=== PATIENT | female | born 1945 | race African-American/Black ===

== ENCOUNTER 2019-09-13 13:13 | Inpatient (IN) | payer MEDICARE, BC, SELFPAY ==
[2019-09-13] VITALS (8 sets, daily range): BP systolic 138–183; BP diastolic 59–103; PULSE 88–104; RESP 16–20; TEMP 37.4–39.4; O2SAT 95–99; BMI 32.1
--- NOTE | ~2019-09-13 | XR_ITS ---
XR knee RT min 4V DATE: 09/13/2019 14:34 INDICATION: Fall. Right knee pain. TECHNIQUE: Crosstable lateral, AP and bilateral oblique views COMPARISON: 12/24/2018 right knee FINDINGS: Tricompartment osteoarthritis, involving most severely the medial compartment. No fracture or dislocation, periosteal reaction or bone destruction, radiopaque intra-articular loose body or chondrocalcinosis is detected. IMPRESSION: Tricompartment osteoarthritis No fracture or dislocation Reviewed, dictated and finalized at location A. TING TRADES WORKER
--- NOTE | ~2019-09-13 | XR_ITS ---
EXAMINATION: XR abdomen/kub 1V INDICATION: No bowel movement for four days, nausea TECHNIQUE: Supine view of the abdomen is obtained. COMPARISON: None FINDINGS: A large volume of colonic stool is present. There are no dilated loops of bowel. Gas and st ool are seen in the rectum. There is chronic metallic density in the right pelvis. Moderate bilateral hip posterior arthritis is noted. There is also osteitis pubis. IMPRESSION: 1. Constipation. Reviewed, dictated and finalized at location A. RAL OFFICE INSPECTOR IMPRESSION: 1. Constipation.
--- NOTE | ~2019-09-13 | XR_ITS ---
XR hip RT 2V w AP pelvis DATE: 09/13/2019 14:34 INDICATION: Fall. Right hip pain. TECHNIQUE: AP pelvis. AP, lateral and crosstable lateral views of right hip COMPARISON: None FINDINGS: No pelvic fracture is evident. The pubic symphysis and sacroiliac joints are normally align ed. Hip joint spaces are symmetric and relatively preserved. No fracture, dislocation, avascular necr osis or bone destruction of the right hip. IMPRESSION: No evidence of pelvic or right hip fracture Reviewed, dictated and finalized at location A. ET SEWER
--- NOTE | ~2019-09-13 | XR_ITS ---
XR chest 2V DATE: 09/13/2019 14:33 INDICATION: Chest pain, cough TECHNIQUE: AP and lateral views COMPARISON: 12/07/2016 two-view chest FINDINGS: There is prominent airspace opacification overlying the left mid and to a lesser extent lef t lower lung. Findings may be due to pneumonia. Recommend clinical correlation. Follow-up chest Radio graphs are recommended to assure complete clearing in order to exclude any possible pulmonary mass le robert or hilar adenopathy. There is minimal infiltrate or atelectasis at the right lung base. Heart size appears within normal limits. No pleural effusion or pulmonary vascular congestion or pneu mothorax is detected. IMPRESSION: Prominent airspace opacities overlying the left mid and to a lesser extent both lower jayson g zones. Pneumonia is suggested. However, follow-up chest radiograph recommended to a short complete clearing in order to exclude any pulmonary mass lesion or hilar adenopathy Reviewed, dictated and finalized at location A. T BASIC EDUCATION MANAGER IMPRESSION: Prominent airspace opacities overlying the left mid and to a lesser extent both lower lung zones. Pneumonia is suggested. However, follow-up chest radiograph recommended to a short complete clearing in order to exclude any pulmonary mass lesion or hilar adenopathy
--- NOTE | ~2019-09-13 | XR_ITS ---
EXAMINATION: XR abdomen obstructive series DATE: 09/19/2019 13:47 INDICATION: Constipation. TECHNIQUE: Upright and supine views of the abdomen were obtained. COMPARISON: Abdomen radiograph 09/16/2019, CT abdomen and pelvis 11/21/2012 FINDINGS: There are no dilated loops of bowel. There is a large volume of stool in the colon. There i s a 12 mm radiopaque foreign body in right lower quadrant that was in the cecum on 11/21/2012. No free intraperitoneal gas. There are airspace opacities in the mid and lower lung zones, left worse than ri ght. IMPRESSION: 1. Nonobstructive bowel gas pattern. 2. Airspace opacities in the mid and lower lung zones, left worse than right, consistent with atelect asis versus pneumonia. Reviewed, dictated and finalized at location A. IMPLEMENTATION CONSULTANT IMPRESSION: 1. Nonobstructive bowel gas pattern. 2. Airspace opacities in the mid and lower lung zones, left worse than right, c onsistent with atelectasis versus pneumonia.
--- NOTE | 2019-09-13 13:32 | ED.FALL ---
HPI - Fall General Chief Complaint: Fall Stated Complaint: fall, weakness Time Seen by Provider: 09/13/19 13:32 Source: patient and family (daughter) Mode of arrival: ambulatory Limitations: no limitations History of Present Illness HPI Narrative: A 74 y/o female presents to the ED after a fall. Pt states that she woke up at 9:00 AM this morning and was walking from the bathroom when her feet started slipping and she slid down to the floor. Pt was found sitting up on the floor by family. Per daughter, pt has been coughing up green phlegm for 2 days. Pt has not eaten or taken any of her medication today. Pt lives alone and does not want to move in with family or go to a [facility]. Pt has become increasingly weak recently, but is normally able to walk unassisted. She reports SOB on exertion and a 103 degree F fever today, but denies CP, ABD pain, neck pain, back pain, and a HI. Pt is on ASA 81 mg. Onset (ago): hour(s) Fall witnessed: no Place fall occurred: home Related Data Home Medications Medication Instructions Recorded Confirmed amlodipine 5 mg PO DAILY 09/13/19 09/13/19 aspirin 81 mg PO DAILY 09/13/19 09/13/19 cholecalciferol (vitamin D3) 5,000 unit PO DAILY 09/13/19 09/13/19 [Vitamin D3] diclofenac sodium 75 mg PO BID 09/13/19 09/13/19 losartan 100 mg PO DAILY 09/13/19 09/13/19 metformin 500 mg PO BID 09/13/19 09/13/19 pravastatin 20 mg PO DAILY 09/13/19 09/13/19 Allergies Allergy/AdvReac Type Severity Reaction Status Date / Time Penicillins Allergy Intermediate Swelling Verified 09/13/19 13:31 of Lip/Tongue/Throat acetaminophen [From Vicodin] AdvReac Intermediate Nausea and Verified 09/13/19 13:31 Vomiting hydrocodone [From Vicodin] AdvReac Intermediate Nausea and Verified 09/13/19 13:31 Vomiting Review of Systems Review of Systems: All systems reviewed & are unremarkable except as noted in HPI and below Constitutional: Constitutional: Reports fever(s) (103 degree F) and Reports weakness (generalized) Comments: Reports: a fall Cardiovascular: Cardiovascular: Denies chest pain Respiratory: Respiratory: Reports cough (with green phlegm) and Reports dyspnea (on exertion) Gastrointestinal: Gastrointestinal: Denies abdominal pain Musculoskeletal: Musculoskeletal: Denies back pain Comments: Denies: neck pain Neurologic: Comments: Denies: a GREATER [facility] Past Medical History Medical History (Updated 09/13/19 @ 18:22 by Deborah Hammer PA-C) Anemia Arthritis Hyperlipidemia Hypertension Pleurisy Shingles Type 2 diabetes mellitus Uterine cancer Surgical History Surgical History (Updated 09/13/19 @ 17:51 by Deborah Hammer PA-C) H/O local excision of skin lesion finger History of hand surgery Right trigger finger release and tendon surgery. Status post appendectomy Status post breast biopsy With benign histology. Status post cataract extraction Status post dilation and curettage Status post hysterectomy Family History Family History Sibling Diabetes mellitus Sibling Diabetes mellitus Social History Social History (Updated 09/13/19 @ 18:23 by Deborah Hammer PA-C) Social History: The patient lives in her own home in [place]. She has 7 children, whom she designates as her surrogate decision makers. In addition to her 7 children, she has 21 grandchildren, 25 great grandchildren, and 5 great great grandchildren. She wishes to be a full code. 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 She denies alcohol, tobacco, and drug use. Gender identity (if verbalized by the patient): Female Spiritual care concerns: No Agree to blood products: Yes Comments No PCP on file. Exam Const: General: alert Orientation/consciousness: patient oriented x3 Other: patient with tremors to hands HENMT: Head: normal to inspection, No palpable skull fracture present, normocep
--- NOTE | 2019-09-13 13:45 | ECG_ITS ---
Measurements Intervals [place] Rate: 100 P: 61 ND: 206 QRS: 4 QRSD: 84 T: 39 QT: 364 QTc: 471 Interpretive Statements SINUS TACHYCARDIA WITH FIRST DEGREE AV BLOCK CANNOT RULE OUT SEPTAL INFARCT, AGE INDETERMINATE BASELINE ARTIFACT- I, II, AVR, AVL, AVF, V1-V3, V6 ABNORMAL ECG Electronically Signed On 09-13-2019 19:20:58 BULLET SLUGS INSPECTOR by Gallo Feliz D.O.
[2019-09-13 14:08] LABS: Basophils Absolute Auto 0.1 K/mm3 (0.0-0.1); Basophils Percent Auto 0.5 % (0.2-1.2); Eosinophils Percent Auto 0.1 % (0-4.4); Hematocrit 36.4 % (37.0-47.0); Hemoglobin 11.6 g/dL (12.0-15.0); Immature Granulocyte Absolute 0.07 K/mm3 (0.00-0.031); Immature Granulocyte Percent A 0.5 % (0-0.5); Lymphocytes Absolute Auto 1.18 K/mm3 (0.9-3.2); Lymphocytes Percent Auto 7.9 % (18.3-44.2); Mean Corpuscular HGB Conc 31.9 g/dl (32-36); Mean Corpuscular Hemoglobin 30.4 pg (26-34); Mean Corpuscular Volume 95.3 fl (80-100); Mean Platelet Volume 11.8 fl (7.4-10.4); Monocytes Absolute Auto 1.3 K/mm3 (0.1-0.6); Monocytes Percent Auto 8.9 % (2.6-8.5); Neutrophils Absolute Auto 12.3 K/mm3 (1.3-6.7); Neutrophils Percent Auto 82.1 % (45.5-73.1); Platelet Count Result 242 k/mm3 (150-375); Red Blood Count 3.82 M/mm3 (4.2-5.4); Red Cell Distribution Width 12.4 % (11.5-14.5)
[2019-09-13] MEDS: SODIUM CHLORIDE 0.9% IV 1,000 ML 999 ML IV CONT (14:13)
[2019-09-13 14:20] LABS: INR 1.1; Prothrombin Time 13.6 Seconds (11.1-14.7)
[2019-09-13 14:22] LABS: Lactic Acid Reflex 2.1 mmol/L (0.7-2.1)
[2019-09-13 14:25] LABS: Alanine Aminotransferase 17 U/L (4-35); Alkaline Phosphatase 129 U/L (38-126); Aspartate Amino Transferase 23 U/L (14-36); Bilirubin,Total 0.4 mg/dL (0.2-1.3); Blood Urea Nitrogen 19 mg/dL (7-17); Calcium 9.3 mg/dL (8.4-10.2); Carbon Dioxide 25 mmol/L (22-30); Chloride 99 mmol/L (98-107); Estimated CRCL calculation 41 ml/min; Estimated Glomerular Filt Rate > 60; Glucose 227 mg/dL (65-105); Potassium 3.9 mmol/L (3.4-5.0); Sodium 136 mmol/L (137-145)
[2019-09-13 14:40] LABS: CRP 12.8 mg/dL (<1.0)
[2019-09-13 15:09] LABS: Creatine Kinase 165 U/L (30-135)
[2019-09-13 15:18] LABS: Add Urine Microscopic? YES; Appearance Urine Cloudy (Clear); Bacteria Urine 4+ /hpf; Bilirubin Urine Negative (Negative); Blood Urine 2+ (Negative); Color Urine Yellow (Yellow); Glucose Urine UA 1+ mg/dL (Negative); Ketones Urine Trace mg/dL (Negative); Leukocyte Esterase Ur Negative LEU/UL (Negative); Mucus Urine Rare /lpf; Nitrate Urine Negative (Negative); Protein Urine 3+ mg/dL (Negative); Specific Grav Ur 1.016 (1.001-1.035); Squamous Epithelial Cell Urine Occasional /hpf (Few); Urobilinogen Urine Negative mg/dL (<2.0)
--- NOTE | 2019-09-13 16:22 | ADMGEN ---
This patient, Génesis Chan, was admitted to Medical Room 257-01. Patient/family oriented to hospital policies and general routines including ID bracelet, bed and alarms, visiting hours, pain management, procedures, bathroom and other care routines, personal items, smoking policy, room service/diet, and visiting hours. Valuables list has been completed. Information on how to activate the Rapid Response Team has been discussed. Patient/Family are encouraged to report perceived risks to care and to ask questions if they do not understand what they are told or what they should do.
--- NOTE | 2019-09-13 17:00 | PM.IMHP ---
H&P: HPI History of Present Illness Chief complaint: Fall. Narrative: Génesis Chan is a 74 year old female with diabetes, hypertension, and hyperlipidemia who presented to the emergency department earlier this morning for evaluation after a fall. She woke at 09:00 hours and seemed to be doing okay. She decided not to go to mu-ism, and after leaving the bathroom she went to the dining room table to put her pajamas back on when she slipped out of the chair, onto the floor onto her buttocks. She was unable to get herself up ?because I was weekend sliding around.? Unfortunately she could not get to a phone, and she was on the ground for at least a couple of hours before friends and family members got to her house after she did not answer the phone. With further questioning she mentions having a cough productive of green phlegm as well as a decreased appetite since Saturday. She denies head trauma and loss of consciousness with the fall. She did complain of right knee pain, but goes on to state that she has severe arthritis in that knee in that is not unusual for her. She denies feelings of shortness of breath to me but did mention feeling short of breath with exertion to the emergency department physician. She has not had sinus congestion, rhinorrhea, otalgia, odynophagia, chest pain, pleuritic pain, racing heart, lightheadedness, dizziness, nausea, and vomiting. Of note, the patient did not take her medications this morning. Review of Systems Review of Systems: Narrative: Twelve systems were reviewed with pertinent positives and negatives as per HPI. Temperature was 103? on arrival today. She denies myalgias and arthralgias. No cold or flu symptoms. Occasional constipation. No hematuria. Denies dysphagia and concerns for aspiration. Reports chronic arthritic pain in her right knee. Except as documented, all other systems were reviewed and are negative. [facility] Past Medical History Medical History (Updated 09/13/19 @ 18:22 by Deborah Hammer PA-C) Anemia Arthritis Hyperlipidemia Hypertension Pleurisy Shingles Type 2 diabetes mellitus Uterine cancer Surgical History Surgical History (Updated 09/13/19 @ 17:51 by Deborah Hammer PA-C) H/O local excision of skin lesion finger History of hand surgery Right trigger finger release and tendon surgery. Status post appendectomy Status post breast biopsy With benign histology. Status post cataract extraction Status post dilation and curettage Status post hysterectomy Family History Family History Sibling Diabetes mellitus Sibling Diabetes mellitus Social History Social History (Updated 09/13/19 @ 18:23 by Deborah Hammer PA-C) Social History: The patient lives in her own home in [place]. She has 7 children, whom she designates as her surrogate decision makers. In addition to her 7 children, she has 21 grandchildren, 25 great grandchildren, and 5 great great grandchildren. She wishes to be a full code. 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 She denies alcohol, tobacco, and drug use. Gender identity (if verbalized by the patient): Female Spiritual care concerns: No Agree to blood products: Yes Meds Home Medications and Allergies Home Medications Medication Instructions Recorded Confirmed Type amlodipine 5 mg PO DAILY 09/13/19 09/13/19 History aspirin 81 mg PO DAILY 09/13/19 09/13/19 History cholecalciferol (vitamin D3) 5,000 unit PO DAILY 09/13/19 09/13/19 History [Vitamin D3] diclofenac sodium 75 mg PO BID 09/13/19 09/13/19 History losartan 100 mg PO DAILY 09/13/19 09/13/19 History metformin 500 mg PO BID 09/13/19 09/13/19 History pravastatin 20 mg PO DAILY 09/13/19 09/13/19 History Allergies Allergy/AdvReac Type Severity Reaction Status Date / Time Penicillins Allergy Intermediate Swelling Verified 09/13/19 13:31 of Lip/Tongue/T
[2019-09-13 17:06] LABS: Reflex Lactic Acid Yes or No Add Lactic
[2019-09-13] MEDS: LACTATED RINGERS 1,000 ML 125 ML IV CONT (17:40)
[2019-09-13 18:07] LABS: Glucose Point of Care 216 (65-105)
[2019-09-13 18:18] LABS: Lactic Acid 1.2 mmol/L (0.7-2.1)
[2019-09-13 18:41] LABS: Hemoglobin A1C 6.8 % (<5.7)
[2019-09-13] MEDS: metFORMIN HCL 500 MG TABLET PO (18:49)
[2019-09-13 21:26] LABS: Glucose Point of Care 219 (65-105)
[2019-09-14] VITALS (17 sets, daily range): BP systolic 104–153; BP diastolic 52–87; PULSE 88–93; RESP 14–20; TEMP 37.1–38.9; O2SAT 95–99
[2019-09-14] MEDS: IBUPROFEN 400 MG TABLET PO ×2 (01:03→11:50)
[2019-09-14] MEDS: LACTATED RINGERS 1,000 ML 125 ML IV CONT (01:59)
[2019-09-14 06:26] LABS: Basophils Percent Auto 0.3 % (0.2-1.2); Eosinophils Percent Auto 0.1 % (0-4.4); Hematocrit 30.5 % (37.0-47.0); Hemoglobin 9.9 g/dL (12.0-15.0); Immature Granulocyte Absolute 0.08 K/mm3 (0.00-0.031); Immature Granulocyte Percent A 0.6 % (0-0.5); Lymphocytes Absolute Auto 1.55 K/mm3 (0.9-3.2); Mean Corpuscular HGB Conc 32.5 g/dl (32-36); Mean Corpuscular Hemoglobin 30.5 pg (26-34); Mean Corpuscular Volume 93.8 fl (80-100); Mean Platelet Volume 11.9 fl (7.4-10.4); Monocytes Absolute Auto 1.5 K/mm3 (0.1-0.6); Monocytes Percent Auto 10.7 % (2.6-8.5); Neutrophils Absolute Auto 10.9 K/mm3 (1.3-6.7); Neutrophils Percent Auto 77.3 % (45.5-73.1); Platelet Count Result 219 k/mm3 (150-375); Red Blood Count 3.25 M/mm3 (4.2-5.4); Red Cell Distribution Width 12.4 % (11.5-14.5); White Blood Count 14.1 K/mm3 (4.5-10.0)
[2019-09-14 06:34] LABS: Alanine Aminotransferase 14 U/L (4-35); Albumin Level 3.1 g/dL (3.5-5.1); Alkaline Phosphatase 95 U/L (38-126); Aspartate Amino Transferase 26 U/L (14-36); Bilirubin,Total 0.4 mg/dL (0.2-1.3); Blood Urea Nitrogen 14 mg/dL (7-17); Calcium 8.6 mg/dL (8.4-10.2); Carbon Dioxide 25 mmol/L (22-30); Chloride 104 mmol/L (98-107); Estimated CRCL calculation 53 ml/min; Estimated Glomerular Filt Rate > 60; Glucose 181 mg/dL (65-105); Potassium 3.6 mmol/L (3.4-5.0); Sodium 137 mmol/L (137-145)
[2019-09-14 08:07] LABS: Glucose Point of Care 188 (65-105)
[2019-09-14] MEDS: CHOLECALCIFEROL 1,000 UNIT TABLET 5000 UNITS PO (08:26)
[2019-09-14] MEDS: metFORMIN HCL 500 MG TABLET PO ×2 (08:26→17:56)
[2019-09-14] MEDS: ASPIRIN 81 MG CHEWABLE TABLET PO (08:26)
[2019-09-14] MEDS: LOSARTAN POTASSIUM 100 MG TABLET PO (08:26)
[2019-09-14] MEDS: PRAVASTATIN SODIUM 20 MG TABLET PO (08:26)
[2019-09-14] MEDS: AMLODIPINE BESYLATE 5 MG TABLET PO (08:26)
[2019-09-14] MEDS: ACETAMINOPHEN 325 MG TABLET 650 MG PO (10:23)
[2019-09-14] MEDS: LACTATED RINGERS 1,000 ML 80 ML IV CONT (11:04)
[2019-09-14 11:55] LABS: Glucose Point of Care 211 (65-105)
[2019-09-14] MEDS: INSULIN ASPART (*BKC) 100 UNITS/ML SUB-Q (11:55)
--- NOTE | 2019-09-14 15:41 | PM.IMPN ---
Progress Note: A&P Assessment and Plan (1) Sepsis: Qualifiers: Sepsis acute organ dysfunction status: unspecified Sepsis type: sepsis due to unspecified organism Qualified Code(s): A41.9 - Sepsis, unspecified organism Code(s): A41.9 - Sepsis, unspecified organism Status: Acute Assessment and Plan: -------Present on admission and supported by fever, tachycardia, and leukocytosis in the setting of PNA. Vitals stable. Continue levofloxacin. Blood cultures pending. (2) Pneumonia: Qualifiers: Laterality: left Lung location: unspecified part of lung Pneumonia type: due to unspecified organism Qualified Code(s): J18.9 - Pneumonia, unspecified organism Code(s): J18.9 - Pneumonia, unspecified organism Status: Acute Assessment and Plan: -----continue abx as stated above. Sputum cx pending. (3) Bacteriuria: Code(s): R82.71 - Bacteriuria Status: Acute Assessment and Plan: ------She does note dysuria and history of urinary tract infection. Continue abx and await cx. (4) Generalized weakness: Code(s): R53.1 - Weakness Status: Acute Assessment and Plan: -------Presumably secondary to infection. Continue pT and OT (5) Fall: Code(s): W19.XXXA - Unspecified fall, initial encounter Status: Acute Assessment and Plan: ------Secondary to weakness from illness. (6) Type 2 diabetes mellitus: Code(s): E11.9 - Type 2 diabetes mellitus without complications Status: Acute Assessment and Plan: -----Continue SSI, Accu-Cheks, and hypoglycemic protocol. Will also continue metformin. (7) Hypertension: Code(s): I10 - Essential (primary) hypertension Status: Acute Assessment and Plan: -----Last bp 104/87. Reading have been as high as 183/76 in the emergency department. Continue antihypertensives and monitor (8) Heart murmur: Code(s): R01.1 - Cardiac murmur, unspecified Status: Acute Assessment and Plan: ----- Pt states she is unaware of this. Could be because she is sick. She plans to f/u with pcp after discharge to see if she needs additional w/u Time Spent With Patient Time with patient: 25 - 35 minutes Subjective Date/time seen: 09/14/19 15:41 Interval history: Pt is a 74-year-old female who presented emergency room for fall and productive cough. Patient was seen today and states she is doing okay. She still has a productive cough that is green in color. She has been having fevers all day and feels achy. She has some chest pain with breathing and coughing that is reproducible. She has no shortness of breath at rest and has been walking to the bathroom without shortness of breath. She denies diarrhea or constipation but would like something to help move her bowels. She said she worked with physical therapy and did okay. She states she is eating okay. She does not recall ever being told that she has a murmur. Review of Systems Review of Systems: All systems reviewed & are unremarkable except as noted in HPI and below Exam Narrative: Exam Narrative: General: Well developed well nourished patient resting in bed in NAD HEENT: normocephalic Neck: supple Neuro: Alert and oriented x4 CV:RRR Resp: Decreased breath sounds at the bases with occasional wheeze Abd: Soft, non distended. No pain to palpation. Positive bowel sounds Extremities: No swelling, erythema, or pain to palpation. Objective Data Vital Signs Vital Signs: Vital Signs - 24 hr 09/13/19 16:03 09/13/19 16:09 09/13/19 16:30 Temperature 99.9 F H 101 F H Pulse Rate 98 98 Respiratory Rate 20 16 Blood Pressure 167/80 H 155/64 H Pulse Oximetry 99 98 09/13/19 18:46 09/13/19 20:00 09/13/19 22:59 Temperature 100.6 F H 99.3 F 100.8 F H Pulse Rate 98 88 Respiratory Rate 16 18 Blood Pressure 138/59 L Pulse Oximetry 98 95 09/14/19 00:5
[2019-09-14 17:16] LABS: Glucose Point of Care 162 (65-105)
[2019-09-14 20:41] LABS: Glucose Point of Care 180 (65-105)
[2019-09-15] VITALS (7 sets, daily range): BP systolic 118–145; BP diastolic 56–57; PULSE 72–97; RESP 14–20; TEMP 37.5–38; O2SAT 90–94
[2019-09-15] MEDS: LACTATED RINGERS 1,000 ML 80 ML IV CONT ×2 (01:15→23:27)
[2019-09-15 05:37] LABS: Hematocrit 31.3 % (37.0-47.0); Hemoglobin 10.1 g/dL (12.0-15.0); Mean Corpuscular HGB Conc 32.3 g/dl (32-36); Mean Corpuscular Hemoglobin 30.3 pg (26-34); Mean Platelet Volume 11.7 fl (7.4-10.4); Platelet Count Result 208 k/mm3 (150-375); Red Blood Count 3.33 M/mm3 (4.2-5.4); Red Cell Distribution Width 12.6 % (11.5-14.5); White Blood Count 15.5 K/mm3 (4.5-10.0)
[2019-09-15 05:49] LABS: Blood Urea Nitrogen 11 mg/dL (7-17); Calcium 8.7 mg/dL (8.4-10.2); Carbon Dioxide 27 mmol/L (22-30); Chloride 101 mmol/L (98-107); Estimated CRCL calculation 47 ml/min; Estimated Glomerular Filt Rate > 60; Glucose 216 mg/dL (65-105); Magnesium 1.6 mg/dL (1.6-2.3); Potassium 3.4 mmol/L (3.4-5.0); Sodium 136 mmol/L (137-145)
[2019-09-15 08:24] LABS: Glucose Point of Care 196 (65-105)
[2019-09-15] MEDS: ONDANSETRON HCL ODT 4 MG TABLET PO (09:31)
[2019-09-15] MEDS: AMLODIPINE BESYLATE 5 MG TABLET PO (09:37)
[2019-09-15] MEDS: POTASSIUM CHLORIDE 20 MEQ TABLET PO (09:37)
[2019-09-15] MEDS: metFORMIN HCL 500 MG TABLET PO ×2 (09:37→17:50)
[2019-09-15] MEDS: LOSARTAN POTASSIUM 100 MG TABLET PO (09:38)
[2019-09-15] MEDS: ASPIRIN 81 MG CHEWABLE TABLET PO (09:38)
[2019-09-15] MEDS: polyethylene glycoL 3350 17 GM POWD.PACK PO (09:38)
[2019-09-15] MEDS: CHOLECALCIFEROL 1,000 UNIT TABLET 5000 UNITS PO (09:38)
[2019-09-15] MEDS: PRAVASTATIN SODIUM 20 MG TABLET PO (09:38)
--- NOTE | 2019-09-15 11:42 | PM.IMPN ---
Progress Note: A&P Assessment and Plan (1) Pneumonia: Qualifiers: Laterality: left Lung location: unspecified part of lung Pneumonia type: due to unspecified organism Qualified Code(s): J18.9 - Pneumonia, unspecified organism Code(s): J18.9 - Pneumonia, unspecified organism Status: Acute Assessment and Plan: Continue Levaquin (day 3). Blood cultures, sputum cultures pending with no growth to date. (2) Sepsis: Qualifiers: Sepsis acute organ dysfunction status: unspecified Sepsis type: sepsis due to unspecified organism Qualified Code(s): A41.9 - Sepsis, unspecified organism Code(s): A41.9 - Sepsis, unspecified organism Status: Acute Assessment and Plan: Evident by fever, tachycardia, leukocytosis on arrival. Suspected source is respiratory. See above. Blood cultures pending with no growth to date. Urine culture growing 50,000 - 100,000 E coli -awaiting sensitivities. (3) Bacteriuria: Code(s): R82.71 - Bacteriuria Status: Acute Assessment and Plan: Urine culture growing E coli. She remains on Levaquin -awaiting sensitivity report. (4) Generalized weakness: Code(s): R53.1 - Weakness Status: Acute Assessment and Plan: Continue PT/OT. May be secondary to above. (5) Fall: Qualifiers: Encounter type: initial encounter Qualified Code(s): W19.XXXA - Unspecified fall, initial encounter Code(s): W19.XXXA - Unspecified fall, initial encounter Status: Acute Assessment and Plan: See above. Imaging with no fractures. (6) Type 2 diabetes mellitus: Qualifiers: Diabetes mellitus complication status: without complication Diabetes mellitus correction insulin use: without watermaster use Qualified Code(s): E11.9 - Type 2 diabetes mellitus without complications Code(s): E11.9 - Type 2 diabetes mellitus without complications Status: Acute Assessment and Plan: Continue home metformin. To monitor with Accu-Cheks and cover with sliding scale insulin. (7) Hypertension: Qualifiers: Hypertension type: essential hypertension Qualified Code(s): I10 - Essential (primary) hypertension Code(s): I10 - Essential (primary) hypertension Status: Acute Assessment and Plan: Blood pressures have been variable. Continue her home Norvasc and Cozaar. Monitor BP and adjust treatment if needed. (8) DVT prophylaxis: Code(s): Z29.9 - Encounter for prophylactic measures, unspecified Status: Acute Assessment and Plan: SCDs Subjective Date/time seen: 09/15/19 1015 Interval history: Ms. Chan is a 74yo F admitted with pneumonia. She reports feeling nauseous this morning without emesis. She has tolerated some breakfast this morning. She denies any chest pain and feels her shortness of breath has improved slightly. Review of Systems Review of Systems: Narrative: Twelve systems were reviewed with pertinent positives and negatives as per HPI. Exam Narrative: Exam Narrative: General: Female resting in bedside chair in no acute distress. HEENT: Normocephalic, EOMI, oral mucosa moist. Cardiovascular: Rate and rhythm regular. Respiratory: Diminished breath sounds, slight expiratory wheezing. Respirations even and nonlabored, tolerating room air. Abdomen: Soft, non-tender, non-distended, bowel sounds present. Extremities: Peripheral pulses intact. No edema. Neuro: No focal neurological deficits. Speech is clear. Objective Data Vital Signs Vital Signs: Last Vital Signs Temp 99.5 F 09/15/19 08:06 Pulse 72 09/15/19 08:06 Resp 16 09/15/19 08:06 BP 141/57 H 09/15/19 08:06 Pulse Ox 94 09/15/19 08:06 Inta
[2019-09-15 12:35] LABS: Glucose Point of Care 193 (65-105)
[2019-09-15] MEDS: MAGNESIUM OXIDE 400 MG TABLET PO (12:41)
[2019-09-15] MEDS: MAGNESIUM SULF 4 GM/WATER100ML 4 GM/100 ML BAG IVPB (15:15)
[2019-09-15] MEDS: IBUPROFEN 400 MG TABLET PO (17:50)
[2019-09-15 18:14] LABS: Glucose Point of Care 184 (65-105)
[2019-09-15] MEDS: ACETAMINOPHEN 325 MG TABLET 650 MG PO (21:19)
[2019-09-15 21:37] LABS: Glucose Point of Care 198 (65-105)
[2019-09-16 06:00] VITALS: BP 125/51; PULSE 81; RESP 20; TEMP 36.7; O2SAT 90
[2019-09-16 06:15] LABS: Basophils Percent Auto 0.2 % (0.2-1.2); Eosinophils Absolute Auto 0.1 K/mm3 (0-0.3); Eosinophils Percent Auto 0.6 % (0-4.4); Hematocrit 31.3 % (37.0-47.0); Hemoglobin 9.8 g/dL (12.0-15.0); Immature Granulocyte Absolute 0.07 K/mm3 (0.00-0.031); Immature Granulocyte Percent A 0.6 % (0-0.5); Lymphocytes Absolute Auto 2.28 K/mm3 (0.9-3.2); Lymphocytes Percent Auto 18.4 % (18.3-44.2); Mean Corpuscular HGB Conc 31.3 g/dl (32-36); Mean Corpuscular Hemoglobin 29.9 pg (26-34); Mean Corpuscular Volume 95.4 fl (80-100); Monocytes Absolute Auto 1.2 K/mm3 (0.1-0.6); Monocytes Percent Auto 9.6 % (2.6-8.5); Neutrophils Absolute Auto 8.8 K/mm3 (1.3-6.7); Neutrophils Percent Auto 70.6 % (45.5-73.1); Platelet Count Result 222 k/mm3 (150-375); Red Blood Count 3.28 M/mm3 (4.2-5.4); Red Cell Distribution Width 13.1 % (11.5-14.5); White Blood Count 12.4 K/mm3 (4.5-10.0)
[2019-09-16 06:39] LABS: Blood Urea Nitrogen 20 mg/dL (7-17); Calcium 8.8 mg/dL (8.4-10.2); Carbon Dioxide 27 mmol/L (22-30); Chloride 99 mmol/L (98-107); Estimated CRCL calculation 33 ml/min; Estimated Glomerular Filt Rate 48; Glucose 161 mg/dL (65-105); Magnesium 2.9 mg/dL (1.6-2.3); Phosphorus 3.7 mg/dL (2.5-4.5); Potassium 4.1 mmol/L (3.4-5.0); Sodium 135 mmol/L (137-145)
[2019-09-16] MEDS: ONDANSETRON INJ 4 MG/2 ML VIAL IV PUSH ×2 (08:32→16:13)
[2019-09-16] MEDS: metFORMIN HCL 500 MG TABLET PO ×2 (08:41→17:28)
[2019-09-16] MEDS: ASPIRIN 81 MG CHEWABLE TABLET PO (08:41)
[2019-09-16] MEDS: AMLODIPINE BESYLATE 5 MG TABLET PO (08:41)
[2019-09-16] MEDS: PRAVASTATIN SODIUM 20 MG TABLET PO (08:42)
[2019-09-16] MEDS: LOSARTAN POTASSIUM 100 MG TABLET PO (08:42)
[2019-09-16] MEDS: CHOLECALCIFEROL 1,000 UNIT TABLET 5000 UNITS PO (08:42)
[2019-09-16] MEDS: polyethylene glycoL 3350 17 GM POWD.PACK PO (08:43)
[2019-09-16 08:51] LABS: Glucose Point of Care 131 (65-105)
--- NOTE | 2019-09-16 10:26 | PCOTNOTE ---
Pt became nausous and stated, she wanted to do therapy but was too sick.
--- NOTE | 2019-09-16 11:30 | PM.IMPN ---
Progress Note: A&P Assessment and Plan (1) Pneumonia: Qualifiers: Laterality: left Lung location: unspecified part of lung Pneumonia type: due to unspecified organism Qualified Code(s): J18.9 - Pneumonia, unspecified organism Code(s): J18.9 - Pneumonia, unspecified organism Status: Acute Assessment and Plan: Continue Levaquin (day 4). Blood cultures, sputum cultures pending with no growth to date. Urine antigens pending. Crackles noted today, stop IV fluids and monitor. (2) Sepsis: Qualifiers: Sepsis acute organ dysfunction status: unspecified Sepsis type: sepsis due to unspecified organism Qualified Code(s): A41.9 - Sepsis, unspecified organism Code(s): A41.9 - Sepsis, unspecified organism Status: Acute Assessment and Plan: Evident by fever, tachycardia, leukocytosis on arrival. Suspected source is respiratory. See above. Blood cultures pending with no growth to date. Urine culture growing 50,000 - 100,000 E coli. (3) Bacteriuria: Code(s): R82.71 - Bacteriuria Status: Acute Assessment and Plan: Urine culture growing 50,000 - 100,000 E coli. UA with negative nitrate, negative leukocyte esterase. Patient denies urinary symptoms. Not felt to be contributing to her symptoms. (4) Generalized weakness: Code(s): R53.1 - Weakness Status: Acute Assessment and Plan: Continue PT/OT. May be secondary to above. Home health arranged. (5) Fall: Qualifiers: Encounter type: initial encounter Qualified Code(s): W19.XXXA - Unspecified fall, initial encounter Code(s): W19.XXXA - Unspecified fall, initial encounter Status: Acute Assessment and Plan: See above. Imaging with no fractures. (6) Type 2 diabetes mellitus: Qualifiers: Diabetes mellitus complication status: without complication Diabetes mellitus custodial insulin use: without exterminator helper use Qualified Code(s): E11.9 - Type 2 diabetes mellitus without complications Code(s): E11.9 - Type 2 diabetes mellitus without complications Status: Acute Assessment and Plan: Continue home metformin. To monitor with Accu-Cheks and cover with sliding scale insulin. (7) Hypertension: Qualifiers: Hypertension type: essential hypertension Qualified Code(s): I10 - Essential (primary) hypertension Code(s): I10 - Essential (primary) hypertension Status: Acute Assessment and Plan: Blood pressures have been variable. Continue her home Norvasc and Cozaar. Monitor BP and adjust treatment if needed. (8) DVT prophylaxis: Code(s): Z29.9 - Encounter for prophylactic measures, unspecified Status: Acute Assessment and Plan: SCDs Subjective Date/time seen: 09/16/19 0930 Interval history: Ms. Chan is a 74yo F admitted with pneumonia. She has nausea with some dry heaving with small amounts of emesis this morning. She denies chest pain or shortness of breath. She reports her last BM was about 4 days ago. Review of Systems Review of Systems: Narrative: Twelve systems were reviewed with pertinent positives and negatives as per HPI. Exam Narrative: Exam Narrative: General: Female resting in bedside chair in no acute distress, eating breakfast. HEENT: Normocephalic, EOMI, oral mucosa moist. Cardiovascular: Rate and rhythm regular. Respiratory: Bibasilar crackles. Respirations even and nonlabored, tolerating room air. Abdomen: Soft, non-tender, non-distended, bowel sounds are present. Extremities: Peripheral pulses intact. No edema or pain to palpation. Neuro: No focal neurological deficits. Speech is clear. Objective Data Vital Signs Vital Signs: Last Vital Signs
[2019-09-16 12:45] LABS: Glucose Point of Care 137 (65-105)
[2019-09-16 14:00] VITALS: BP 109/77; PULSE 84; RESP 18; TEMP 36.4; O2SAT 96
--- NOTE | 2019-09-16 14:45 | PCOTNOTE ---
OT treatment attempted this PM. Pt stated that she just got back in bed from using bathroom and felt too nauseous to do any therapy. Patient encouraged to participate and educated on benefits of OT, however, politely continued to refuse. Will attempt OT treatment tomorrow in AM.
--- NOTE | 2019-09-16 15:24 | PCPTNOTE ---
The PT treatment was unable to be completed today due to patient refusal. Will continue per Plan of Care frequency and duration.
--- NOTE | 2019-09-16 16:50 | PC.NURSE ---
1650 - Went to patient room to discuss fleets enema. Patient in agreement with enema but wants to go to the bathroom to attempt to go on her own and have her depends changed (incontinent of urine). 1715 - Patient back in bed - unable to have a BM in the bathroom. Went to room with fleets enema and patient states she wants to wait until after she eats her dinner to receive the enema. 1800 - Patient still eating dinner and talking on the phone. 1830 - Patient now has company and requests enema be administered after they leave.
[2019-09-16 17:51] LABS: Glucose Point of Care 141 (65-105)
[2019-09-16 20:00] VITALS: PULSE 84; RESP 18; O2SAT 96
[2019-09-16 20:55] LABS: Glucose Point of Care 155 (65-105)
[2019-09-16 21:49] VITALS: BP 143/59; PULSE 86; RESP 20; TEMP 36.9; O2SAT 91
[2019-09-16 21:57] LABS: Pneumococcal Antigen Urine Not Detected (Not Detected)
[2019-09-17] VITALS (8 sets, daily range): BP systolic 140–143; BP diastolic 58–60; PULSE 79–98; RESP 18–20; TEMP 36.1–36.7; O2SAT 90–96
[2019-09-17] MEDS: ONDANSETRON INJ 4 MG/2 ML VIAL IV PUSH ×2 (01:49→07:56)
[2019-09-17 06:01] LABS: Basophils Percent Auto 0.3 % (0.2-1.2); Eosinophils Absolute Auto 0.2 K/mm3 (0-0.3); Eosinophils Percent Auto 1.5 % (0-4.4); Hematocrit 29.8 % (37.0-47.0); Hemoglobin 9.4 g/dL (12.0-15.0); Immature Granulocyte Absolute 0.13 K/mm3 (0.00-0.031); Immature Granulocyte Percent A 1.2 % (0-0.5); Lymphocytes Absolute Auto 2.35 K/mm3 (0.9-3.2); Lymphocytes Percent Auto 20.8 % (18.3-44.2); Mean Corpuscular HGB Conc 31.5 g/dl (32-36); Mean Corpuscular Hemoglobin 29.6 pg (26-34); Mean Corpuscular Volume 93.7 fl (80-100); Mean Platelet Volume 11.9 fl (7.4-10.4); Monocytes Absolute Auto 0.9 K/mm3 (0.1-0.6); Monocytes Percent Auto 8.1 % (2.6-8.5); Neutrophils Absolute Auto 7.7 K/mm3 (1.3-6.7); Neutrophils Percent Auto 68.1 % (45.5-73.1); Platelet Count Result 266 k/mm3 (150-375); Red Blood Count 3.18 M/mm3 (4.2-5.4); Red Cell Distribution Width 12.8 % (11.5-14.5); White Blood Count 11.3 K/mm3 (4.5-10.0)
[2019-09-17 06:06] LABS: Blood Urea Nitrogen 21 mg/dL (7-17); Calcium 8.8 mg/dL (8.4-10.2); Carbon Dioxide 28 mmol/L (22-30); Chloride 101 mmol/L (98-107); Estimated CRCL calculation 39 ml/min; Estimated Glomerular Filt Rate 59; Glucose 181 mg/dL (65-105); Potassium 4.1 mmol/L (3.4-5.0); Sodium 137 mmol/L (137-145)
[2019-09-17 08:06] LABS: Glucose Point of Care 155 (65-105)
[2019-09-17] MEDS: metFORMIN HCL 500 MG TABLET PO ×2 (08:10→17:01)
[2019-09-17] MEDS: CHOLECALCIFEROL 1,000 UNIT TABLET 5000 UNITS PO (08:11)
[2019-09-17] MEDS: PRAVASTATIN SODIUM 20 MG TABLET PO (08:11)
[2019-09-17] MEDS: AMLODIPINE BESYLATE 5 MG TABLET PO (08:11)
[2019-09-17] MEDS: LOSARTAN POTASSIUM 100 MG TABLET PO (08:11)
[2019-09-17] MEDS: ASPIRIN 81 MG CHEWABLE TABLET PO (08:11)
[2019-09-17] MEDS: polyethylene glycoL 3350 17 GM POWD.PACK PO (08:11)
--- NOTE | 2019-09-17 08:30 | PC.NURSE ---
Patient very anxious and tearful this morning. States she felt very scared overnight because she has been nauseated at times and has been worried about being ill. Patient states she has always been very active and healthy and she has been anxious about being ill recently. Patient states she was given temporary dentures last December and is due to get her permanent teeth soon. She states she finds herself sucking hard with the roof of her mouth when she is anxious - to the point of making her mouth sore at times. Patient states she took something for anxiety many years ago for a short time right before she retired but has not had to take anything since that time. Patient states she would be willing to try something again if needed. After talking for awhile, patient settled down and stated she felt better. Daughter is on her way to sit with the patient for awhile. Will discuss further with Linda COLLINS on rounds this morning.
[2019-09-17] MEDS: BISACODYL 10 MG SUPPOSITORY RECTAL (10:30)
[2019-09-17 12:30] LABS: Glucose Point of Care 161 (65-105)
--- NOTE | 2019-09-17 12:52 | PCOTNOTE ---
The patient treatment was not able to be completed on 09/17/18. Will plan to continue treatment per plan of care.
--- NOTE | 2019-09-17 13:26 | PM.IMPN ---
Progress Note: A&P Assessment and Plan (1) Pneumonia: Qualifiers: Laterality: left Lung location: unspecified part of lung Pneumonia type: due to unspecified organism Qualified Code(s): J18.9 - Pneumonia, unspecified organism Code(s): J18.9 - Pneumonia, unspecified organism Status: Acute Assessment and Plan: Continue Levaquin (day 5). Blood cultures pending with no growth to date. Sputum cultures without any isolates. Urine antigens - pneumococcal is negative and legionella is still pending. Add duo nebs. (2) Constipation: Qualifiers: Constipation type: unspecified constipation type Qualified Code(s): K59.00 - Constipation, unspecified Code(s): K59.00 - Constipation, unspecified Status: Acute Assessment and Plan: KUB yesterday shows large volume colonic stool, no evidence of obstruction. Not much relief from enema last night or suppository this morning. Milk of mag this afternoon, add senna for this evening. Miralax has not been working. No abdominal pain or vomiting today. (3) Sepsis: Qualifiers: Sepsis acute organ dysfunction status: unspecified Sepsis type: sepsis due to unspecified organism Qualified Code(s): A41.9 - Sepsis, unspecified organism Code(s): A41.9 - Sepsis, unspecified organism Status: Acute Assessment and Plan: Evident by fever, tachycardia, leukocytosis on arrival. Suspected source is respiratory. See above. Blood cultures pending with no growth to date. Urine culture growing 50,000 - 100,000 E coli. (4) Bacteriuria: Code(s): R82.71 - Bacteriuria Status: Acute Assessment and Plan: Urine culture growing 50,000 - 100,000 E coli. UA with negative nitrate, negative leukocyte esterase. Patient denies urinary symptoms. Not felt to be contributing to her symptoms. (5) Generalized weakness: Code(s): R53.1 - Weakness Status: Acute Assessment and Plan: Continue PT/OT. May be secondary to above. Home health arranged. (6) Fall: Qualifiers: Encounter type: initial encounter Qualified Code(s): W19.XXXA - Unspecified fall, initial encounter Code(s): W19.XXXA - Unspecified fall, initial encounter Status: Acute Assessment and Plan: See above. Imaging with no fractures. (7) Type 2 diabetes mellitus: Qualifiers: Diabetes mellitus complication status: without complication Diabetes mellitus snf insulin use: without termite inspector use Qualified Code(s): E11.9 - Type 2 diabetes mellitus without complications Code(s): E11.9 - Type 2 diabetes mellitus without complications Status: Acute Assessment and Plan: Continue home metformin. To monitor with Accu-Cheks and cover with sliding scale insulin. (8) Hypertension: Qualifiers: Hypertension type: essential hypertension Qualified Code(s): I10 - Essential (primary) hypertension Code(s): I10 - Essential (primary) hypertension Status: Acute Assessment and Plan: Stable. Continue her home Norvasc and Cozaar. Monitor BP and adjust treatment if needed. (9) DVT prophylaxis: Code(s): Z29.9 - Encounter for prophylactic measures, unspecified Status: Acute Assessment and Plan: SCDs Subjective Date/time seen: 09/17/19 1300 Interval history: Ms. Chan is a 74yo F admitted with pneumonia. Sitting up in bedside chair eating lunch, visiting with her children at time of my exam. She is anxious and tearful on exam. She denies chest pain or shortness of breath, just reports feeling bad and weak. She has intermittent nausea but denies any this afternoon. She is constipated, very small BM following
[2019-09-17] MEDS: ALBUTEROL SULFATE NEB 2.5 MG/0.5 ML INH INHALATION ×2 (14:01→22:18)
[2019-09-17] MEDS: IPRATROPIUM BR 0.02% INH SOLN 0.5 MG/2.5 ML VIAL INHALATION ×2 (14:02→22:19)
[2019-09-17] MEDS: PANTOPRAZOLE 40 MG TABLET PO (15:00)
[2019-09-17] MEDS: MAGNESIUM HYDROXIDE SUSP 30 ML UDC PO (15:00)
[2019-09-17 18:03] LABS: Glucose Point of Care 177 (65-105)
[2019-09-17] MEDS: SENNA/DOCUSATE SODIUM TABLET 1 TAB PO (20:41)
[2019-09-17 20:48] LABS: Glucose Point of Care 253 (65-105)
[2019-09-18] VITALS (11 sets, daily range): BP systolic 122–145; BP diastolic 50–69; PULSE 77–93; RESP 16–20; TEMP 36.4–37.4; O2SAT 91–100
[2019-09-18 00:42] LABS: Legionella pneumophila Ag Ur Not Detected (Not Detected)
[2019-09-18] MEDS: ALBUTEROL SULFATE NEB 2.5 MG/0.5 ML INH INHALATION ×4 (02:50→21:00)
[2019-09-18] MEDS: IPRATROPIUM BR 0.02% INH SOLN 0.5 MG/2.5 ML VIAL INHALATION ×4 (02:50→21:00)
[2019-09-18 05:34] LABS: Hematocrit 30.1 % (37.0-47.0); Hemoglobin 9.5 g/dL (12.0-15.0); Mean Corpuscular HGB Conc 31.6 g/dl (32-36); Mean Corpuscular Hemoglobin 29.9 pg (26-34); Mean Corpuscular Volume 94.7 fl (80-100); Mean Platelet Volume 11.5 fl (7.4-10.4); Platelet Count Result 288 k/mm3 (150-375); Red Blood Count 3.18 M/mm3 (4.2-5.4); Red Cell Distribution Width 12.9 % (11.5-14.5); White Blood Count 10.6 K/mm3 (4.5-10.0)
[2019-09-18 05:45] LABS: Blood Urea Nitrogen 17 mg/dL (7-17); Carbon Dioxide 30 mmol/L (22-30); Chloride 99 mmol/L (98-107); Estimated CRCL calculation 47 ml/min; Estimated Glomerular Filt Rate > 60; Glucose 176 mg/dL (65-105); Magnesium 2.3 mg/dL (1.6-2.3); Potassium 3.9 mmol/L (3.4-5.0); Sodium 137 mmol/L (137-145)
[2019-09-18] MEDS: CHOLECALCIFEROL 1,000 UNIT TABLET 5000 UNITS PO (08:01)
[2019-09-18] MEDS: ASPIRIN 81 MG CHEWABLE TABLET PO (08:01)
[2019-09-18] MEDS: AMLODIPINE BESYLATE 5 MG TABLET PO (08:01)
[2019-09-18] MEDS: PANTOPRAZOLE 40 MG TABLET PO (08:01)
[2019-09-18] MEDS: LOSARTAN POTASSIUM 100 MG TABLET PO (08:01)
[2019-09-18] MEDS: metFORMIN HCL 500 MG TABLET PO ×2 (08:01→17:19)
[2019-09-18] MEDS: PRAVASTATIN SODIUM 20 MG TABLET PO (08:01)
[2019-09-18 08:13] LABS: Glucose Point of Care 162 (65-105)
[2019-09-18] MEDS: BISACODYL 10 MG SUPPOSITORY RECTAL (08:13)
--- NOTE | 2019-09-18 09:33 | PM.IMPN ---
Progress Note: A&P Assessment and Plan (1) Pneumonia: Qualifiers: Laterality: left Lung location: unspecified part of lung Pneumonia type: due to unspecified organism Qualified Code(s): J18.9 - Pneumonia, unspecified organism Code(s): J18.9 - Pneumonia, unspecified organism Status: Acute Assessment and Plan: Continue Levaquin (day 6) and stop after this evening's dose. Blood cultures pending with no growth to date. Sputum cultures without any isolates. Legionella and pneumococcal urine antigens are negative. Continue bronchodilator therapy with duo nebs. Added Pulmozyme. One time dose of IV Lasix. (2) Constipation: Qualifiers: Constipation type: unspecified constipation type Qualified Code(s): K59.00 - Constipation, unspecified Code(s): K59.00 - Constipation, unspecified Status: Acute Assessment and Plan: KUB showed large volume colonic stool, no evidence of obstruction. Continue bowel regimen, still with no BM today after suppository this morning and have added a lactulose enema for this afternoon. No abdominal pain or vomiting today. Bowel sounds are present. (3) Sepsis: Qualifiers: Sepsis acute organ dysfunction status: unspecified Sepsis type: sepsis due to unspecified organism Qualified Code(s): A41.9 - Sepsis, unspecified organism Code(s): A41.9 - Sepsis, unspecified organism Status: Acute Assessment and Plan: Evident by fever, tachycardia, leukocytosis on arrival. Suspected source is respiratory. See above. Blood cultures pending with no growth to date. Urine culture growing 50,000 - 100,000 E coli. (4) Bacteriuria: Code(s): R82.71 - Bacteriuria Status: Acute Assessment and Plan: Urine culture growing 50,000 - 100,000 E coli. UA with negative nitrate, negative leukocyte esterase. Patient denies urinary symptoms. Not felt to be contributing to her symptoms. (5) Generalized weakness: Code(s): R53.1 - Weakness Status: Acute Assessment and Plan: Continue PT/OT. May be secondary to above. Home health arranged. (6) Fall: Qualifiers: Encounter type: initial encounter Qualified Code(s): W19.XXXA - Unspecified fall, initial encounter Code(s): W19.XXXA - Unspecified fall, initial encounter Status: Acute Assessment and Plan: See above. Imaging with no fractures. (7) Type 2 diabetes mellitus: Qualifiers: Diabetes mellitus half-way insulin use: without half-way use Diabetes mellitus complication status: without complication Qualified Code(s): E11.9 - Type 2 diabetes mellitus without complications Code(s): E11.9 - Type 2 diabetes mellitus without complications Status: Acute Assessment and Plan: Continue home metformin. To monitor with Accu-Cheks and cover with sliding scale insulin. (8) Hypertension: Qualifiers: Hypertension type: essential hypertension Qualified Code(s): I10 - Essential (primary) hypertension Code(s): I10 - Essential (primary) hypertension Status: Acute Assessment and Plan: Stable. Continue her home Norvasc and Cozaar. Monitor BP and adjust treatment if needed. (9) DVT prophylaxis: Code(s): Z29.9 - Encounter for prophylactic measures, unspecified Status: Acute Assessment and Plan: SCDs Subjective Date/time seen: 09/18/19 09:00 Interval history: Ms. Chan is a 74yo F admitted with pneumonia and constipation. She tells me she feels a little better today than yesterday. She appears to be in better spirits. She denies any chest pain or shortness of breath. No nausea, vomiting, or abdominal pain. She i
[2019-09-18] MEDS: FUROSEMIDE INJ 40 MG/4 ML VIAL 20 MG IV PUSH (09:48)
[2019-09-18 12:05] LABS: Glucose Point of Care 134 (65-105)
[2019-09-18] MEDS: LACTULOSE ENEMA 200 GM/1,000 ML ENEMA RECTAL (16:55)
[2019-09-18 18:59] LABS: Glucose Point of Care 161 (65-105)
[2019-09-18] MEDS: SENNA/DOCUSATE SODIUM TABLET 1 TAB PO (20:56)
[2019-09-18] MEDS: DORNASE ALFA INH SOLN 1 MG/ML 2.5 ML AMP 2.5 MG INHALATION (21:01)
[2019-09-18 21:26] LABS: Glucose Point of Care 145 (65-105)
[2019-09-19] VITALS (10 sets, daily range): BP systolic 131–142; BP diastolic 59–63; PULSE 80–93; RESP 16–20; TEMP 37.1–37.7; O2SAT 95–100
[2019-09-19] MEDS: ALBUTEROL SULFATE NEB 2.5 MG/0.5 ML INH INHALATION ×3 (02:36→15:25)
[2019-09-19] MEDS: IPRATROPIUM BR 0.02% INH SOLN 0.5 MG/2.5 ML VIAL INHALATION ×3 (02:37→15:25)
[2019-09-19] MEDS: IBUPROFEN 400 MG TABLET PO (05:44)
[2019-09-19 06:00] LABS: Glucose Point of Care 167 (65-105)
[2019-09-19] MEDS: PRAVASTATIN SODIUM 20 MG TABLET PO (08:05)
[2019-09-19] MEDS: LOSARTAN POTASSIUM 100 MG TABLET PO (08:05)
[2019-09-19] MEDS: AMLODIPINE BESYLATE 5 MG TABLET PO (08:05)
[2019-09-19] MEDS: CHOLECALCIFEROL 1,000 UNIT TABLET 5000 UNITS PO (08:05)
[2019-09-19] MEDS: PANTOPRAZOLE 40 MG TABLET PO (08:05)
[2019-09-19] MEDS: ASPIRIN 81 MG CHEWABLE TABLET PO (08:06)
[2019-09-19] MEDS: metFORMIN HCL 500 MG TABLET PO (08:06)
[2019-09-19 08:46] LABS: Glucose Point of Care 160 (65-105)
[2019-09-19] MEDS: DORNASE ALFA INH SOLN 1 MG/ML 2.5 ML AMP 2.5 MG INHALATION (09:48)
[2019-09-19] MEDS: BISACODYL 10 MG SUPPOSITORY RECTAL (12:00)
[2019-09-19 14:50] LABS: Glucose Point of Care 133 (65-105)
--- NOTE | 2019-09-20 06:57 | PM.DS ---
DS: Diagnosis Admitting Diagnosis Admitting Diagnosis: Sepsis, unspecified organism Discharge Diagnosis (1) Pneumonia: Qualifiers: Laterality: left Lung location: unspecified part of lung Pneumonia type: due to unspecified organism Qualified Code(s): J18.9 - Pneumonia, unspecified organism Code(s): J18.9 - Pneumonia, unspecified organism Status: Acute Assessment and Plan: Date of Service 09/19/19 Ms. Chan is a 74yo F with history of [id number] type 2 diabetes mellitus, hyperlipidemia, and hypertension who presented to the ED for evaluation a fall. She reported she was in her normal state of health until a few days prior to arrival she began to feel generally weak. Right hip and knee pain. Imaging shows right knee osteoarthritis with no fracture dislocation, right hip with no evidence of pelvic or right hip fracture. She did complain of shortness of breath and cough; chest x-ray showed prominent airspace opacities over the left mid and both lower lung zones suggestive of pneumonia. She was started on Levaquin due to her penicillin allergy. She received 6 days of IV Levaquin it was treated with bronchodilator therapy with DuoNebs and Pulmozyme. She was noted to be constipated and KUB shows large volume colonic stool with no evidence of obstruction. Bowel regimen was started and she was treated with MiraLax, Dulcolax, and enemas. She had a large bowel movement prior to discharge and was educated on a daily bowel regimen. Her respiratory symptoms improved with therapy outlined above, although she did briefly require supplemental oxygen overnight one evening. She was tolerating room air discharge. Blood sugars were stable maintained on her home metformin. She worked with PT/OT and home health was arranged for discharge. She was hemodynamically stable for discharge 09/19/19 with instructions to follow-up with PCP this week. Completed a course of IV Levaquin. Blood cultures negative. Sputum cultures without any isolates. Legionella and pneumococcal urine antigens are negative. Treated with bronchodilator therapy with duo nebs, Pulmozyme. One time dose of IV Lasix. (2) Constipation: Qualifiers: Constipation type: unspecified constipation type Qualified Code(s): K59.00 - Constipation, unspecified Code(s): K59.00 - Constipation, unspecified Status: Acute Assessment and Plan: Obstructive series of obstruction and she had large bowel movement just prior to discharge. Continue bowel regimen at home. (3) Sepsis: Qualifiers: Sepsis acute organ dysfunction status: unspecified Sepsis type: sepsis due to unspecified organism Qualified Code(s): A41.9 - Sepsis, unspecified organism Code(s): A41.9 - Sepsis, unspecified organism Status: Acute Assessment and Plan: Evident by fever, tachycardia, leukocytosis on arrival. Suspected source is respiratory. See above. Blood cultures pending with no growth to date. Urine culture growing 50,000 - 100,000 E coli. (4) Bacteriuria: Code(s): R82.71 - Bacteriuria Status: Acute Assessment and Plan: Urine culture growing 50,000 - 100,000 E coli. UA with negative nitrate, negative leukocyte esterase. Patient denies urinary symptoms. Not felt to be contributing to her symptoms. (5) Generalized weakness: Code(s): R53.1 - Weakness Status: Acute Assessment and Plan: Continue PT/OT. May be secondary to above. Home health arranged. (6) Fall: Qualifiers: Encounter type: initial encounter Qualified Code(s): W19.XXXA - Unspecified fall, initial encounter Code(s): W19.XXXA - Unspecified fall, initial encounter Status: Acute Assessment and Plan: See above. Imaging with no fractures.
== END 2019-09-19 16:28 | disposition home health service (06) | DRG 195 ==
LOC: ANHED 14:47 → ANH2MED 15:40
PROVIDERS: Physician Assistant; Admitting Provider Family Medicine; Emergency Provider General Practice; PCP Family Medicine; Visit Provider Family Medicine
DX: J18.9 Pneumonia, unspecified organism (principal); E11.9 Type 2 diabetes mellitus without complications; I10 Essential (primary) hypertension; E78.5 Hyperlipidemia, unspecified; M19.90 Unspecified osteoarthritis, unspecified site; Z85.42 Personal history of malignant neoplasm of other parts of uterus; Z98.49 Cataract extraction status, unspecified eye; Z90.710 Acquired absence of both cervix and uterus; R82.71 Bacteriuria; Z79.84 Long term (current) use of oral hypoglycemic drugs; K59.00 Constipation, unspecified
CPT/HCPCS: 36415; 51701; 71046; 73502; 73521; 73564; 74018; 74019; 80048; 80053; 81001; 82550; 83036; 83605; 83735; 84100; 85025; 85027; 85610; 85730; 86140; 87040; 87070; 87077; 87086; 87088; 87186; 87205; 87449; 87804; 87899; 93005; 94640; 96365; 96375; 97110; 97116; 97161; 97165; 97530; 97535; 99285; A9270; J0131; J1815; J1940; J1956; J2405; J3475; J7030; J7120

== ENCOUNTER 2019-10-01 13:06 | Outpatient (CLI) | payer MEDICARE, BC, SELFPAY ==
--- NOTE | ~2019-10-01 | XR_ITS ---
EXAMINATION: XR chest 2V EXAM DATE: 10/01/2019 13:23 INDICATION: Pneumonia follow-up. Cough, chest pain. TECHNIQUE: Frontal and lateral projections of the chest obtained and reviewed. There is no prior ivan dy for comparison. FINDINGS: The lungs are clear. There are no pleural effusions. The cardiomediastinal silhouette is within normal limits. There is no pneumothorax suspected. The bones and soft tissues are unremarkab le. IMPRESSION: Resolution of previously seen left-sided pneumonia. Reviewed, dictated and finalized at location B. ON FURNACE OPERATOR
== END 2019-10-01 13:07 | disposition home or self-care (01) ==
LOC: ANHIMG 13:07
PROVIDERS: PCP Family Medicine; Visit Provider Family Medicine
DX: J18.9 Pneumonia, unspecified organism (principal)
CPT/HCPCS: 71046

== ENCOUNTER → 2020-03-30 14:00 | Outpatient (CLI) | payer MEDICARE, BC, SELFPAY ==
--- NOTE | ~2020-03-30 | XR_ITS ---
XR lumbar spine 2-3V DATE: 03/30/2020 14:22 INDICATION: Low back pain TECHNIQUE: Standing AP, lateral and coned lateral lumbosacral views COMPARISON: 08/12/2015 lumbar spine FINDINGS: Diffuse osteopenia. There is moderate degenerative disc disease and minimal retrolisthesis at L1-2. There is mild degenerative disc disease and minimal retrolisthesis at L2-3. There is moderate loss of interspace height and grade 1 anterolisthesis at L4-5 and L5-S1. The included lower thoracic and lumbar pedicles are intact. The sacroiliac joints appear normal. IMPRESSION: Diffuse osteopenia Degenerative changes of the lumbar spine Reviewed, dictated and finalized at location A.
== END ==
PROVIDERS: PCP Family Medicine; Visit Provider Family Medicine
DX: M85.88 Other specified disorders of bone density and structure, other site (principal); M51.36 Other intervertebral disc degeneration, lumbar region
CPT/HCPCS: 72100

== ENCOUNTER → 2021-02-16 09:52 | Outpatient (CLI) | payer MEDICARE, BC, SELFPAY ==
--- NOTE | ~2021-02-16 | MR_ITS ---
EXAMINATION: MR lumbar spine wo con DATE: 02/16/2021 10:58 INDICATION: Low back pain. Intervertebral disc disorders with radiculopathy. TECHNIQUE: Magnetic resonance imaging (MRI) of the lumbar spine was performed without intravenous con trast. Sequences included sagittal T2-weighted FSE, sagittal T2-weighted FS FSE, sagittal T1-weighted FSE, and axial T2-weighted FSE. COMPARISON: Lumbar spine radiograph 03/30/2020 FINDINGS: There is 3 mm anterolisthesis of L4 on L5 and L5 on S1. There is mild chronic anterior wedg ing of T12 and L1 vertebral bodies, likely physiologic. There is moderately decreased disc height at L1-L2, severely decreased disc height at L4-L5, and mildly decreased disc height at L5-S1 with endpla te remodeling. The distal spinal cord signal intensity is normal. The conus medullaris is at L2. Part ially visualized is a 3.0 cm cyst in left kidney. The following disc levels are specifically discusse d: L1-L2: The disc does not extend beyond the endplate margin. There is mild bilateral facet joint osteo arthritis. There is no neural foraminal stenosis. There is mild central canal stenosis. L2-L3: The disc is bulging. There is mild bilateral facet joint osteoarthritis. There is mild bilater al neural foraminal stenosis. There is mild central canal stenosis. L3-L4: The disc is mildly bulging. There is moderate bilateral facet joint osteoarthritis. There is m ild bilateral neural foraminal stenosis. There is no central canal stenosis. L4-L5: The disc is bulging and has an annular fissure. There is severe bilateral facet joint osteoart hritis. There is moderate bilateral neural foraminal stenosis. There is mild central canal stenosis w ith asymmetry stenosis of left lateral recess. L5-S1: The disc is bulging and has an annular fissure. There is severe bilateral facet joint osteoart hritis. There is mild right and moderate left neural foraminal stenosis. There is mild central canal stenosis. IMPRESSION: 1. Severe lumbar spondylosis. Reviewed, dictated and finalized at location A.
== END ==
PROVIDERS: PCP Family Medicine; Visit Provider Family Medicine
DX: M51.16 Intervertebral disc disorders with radiculopathy, lumbar region (principal); M47.896 Other spondylosis, lumbar region
CPT/HCPCS: 72148

== ENCOUNTER → 2021-02-28 15:11 | Outpatient (CLI) | payer MEDICARE, BC, SELFPAY ==
--- NOTE | ~2021-02-28 | MM_ITS ---
EXAMINATION: MM screening [facility] BI w ramya HISTORY: Screening mammogram TECHNIQUE: Craniocaudal and mediolateral oblique 3-D tomosynthesis images were obtained and synthetic 2-D images were generated. CAD analysis was submitted and interpreted. COMPARISON: 03/07/2018, 01/09/2016, 10/22/2013, 10/14/2013 BREAST PARENCHYMAL COMPOSITION: There are scattered areas of fibroglandular density. FINDINGS: RIGHT BREAST: Focal asymmetry is present in the middle third of the lower-outer breast 6 cm from the nipple. LEFT BREAST: There is an asymmetry in the anterior third of the lower breast 2.5 cm from the nipple o n the mediolateral oblique view. IMPRESSION: 1. Bilateral breast findings as described above. 2. Additional mammographic views and possible breast ultrasound are recommended. BI-RADS Category 0: Incomplete: Needs additional imaging evaluation. Reviewed, dictated and finalized at location A. IMPRESSION: 1. Bilateral breast findings as described above. 2. Additional mammographic views and possible breast ultrasound are recommended . BI-RADS Category 0: Incomplete: Needs additional imaging evaluation.
== END ==
PROVIDERS: PCP Family Medicine; Visit Provider Family Medicine
DX: Z12.31 Encounter for screening mammogram for malignant neoplasm of breast (principal); R92.8 Other abnormal and inconclusive findings on diagnostic imaging of breast
CPT/HCPCS: 77063; 77067

== ENCOUNTER 2021-03-07 13:15 | Emergency (ER) | payer MEDICARE, BC, SELFPAY ==
--- NOTE | ~2021-03-07 | CT_ITS ---
EXAMINATION: CT brain wo con INDICATION: Head injury COMPARISON: None TECHNIQUE: Standard unenhanced head CT. The dose-length product (DLP) was 605.33 mGy-cm. The mA was a djusted according to patient size. Iterative reconstruction technique was employed. FINDINGS: There is no acute intraparenchymal hemorrhage. There is a right posterior parietal occipita l scalp laceration. No evidence of mass lesion. No evidence of acute infarction. There is moderate pe riventricular and subcortical hypodensity probably related to small vessel ischemic disease. There is moderate prominence of the sulci and ventricles related to cerebral atrophy. Intracranial calcified cerebral atherosclerosis is noted. There are no extra-axial collections. There is no mass effect or m idline shift. Changes in the globes are likely from ocular lens surgery. The visualized sinuses and m astoid air cells are well aerated. IMPRESSION: 1. No acute intracranial abnormality. 2. Age related findings. Reviewed, dictated and finalized at location B.
--- NOTE | ~2021-03-07 | CT_ITS ---
EXAMINATION: CT cervical spine wo con DATE: 03/07/2021 14:21 INDICATION: Neck pain, head injury TECHNIQUE: Computed tomography (CT) of the cervical spine was performed without intravenous contrast. The dose-length product (DLP) was 605.33 mGy-cm. Automated exposure control and iterative reconstruc tion technique were employed. COMPARISON: None FINDINGS: There is no fracture. There are 2 mm of retrolisthesis of C3 on C4 and C4 on C5. There is s evere loss of intervertebral disc space height throughout the cervical spine. The odontoid is intact. Prevertebral soft tissues are normal. There is moderate multilevel facet and uncovertebral joint ost eoarthritis. IMPRESSION: 1. Severe cervical spondylosis without acute findings. Reviewed, dictated and finalized at location B.
[2021-03-07 13:25] VITALS: BP 148/64; PULSE 85; RESP 14; TEMP 37.5; O2SAT 99
--- NOTE | 2021-03-07 13:31 | ECG_ITS ---
Measurements Intervals [place] Rate: 80 P: 53 ME: 182 QRS: -32 QRSD: 106 T: 54 QT: 381 QTc: 442 Interpretive Statements SINUS RHYTHM INCOMPLETE LEFT BUNDLE BRANCH BLOCK INFERIOR INFARCT, AGE INDETERMINATE ANTEROSEPTAL INFARCT, AGE INDETERMINATE ABNORMAL ECG Electronically Signed On 03-07-2021 13:44:57 CDT by Gallo Feliz D.O.
--- NOTE | 2021-03-07 15:32 | PC.NURSE ---
Pt to ED with family with complaints of falling backwards and striking her head on a concrete basement floor. Pt reports she does not remember the fall. Pt has laceration to posterior head. Bleeding is controlled. Pt complains of pain to bilateral shoulders. Denies headache or neck pain. Pt denies dizziness, visual changes, nausea, or vomiting. A&Ox4 with clear speech.
[2021-03-07 15:35] VITALS: BP 148/63; PULSE 85; RESP 14; TEMP 37.5; O2SAT 99
--- NOTE | 2021-03-07 15:42 | ED.FALL ---
HPI - Fall General Chief Complaint: Fall Stated Complaint: fall/head injury Time Seen by Provider: 03/07/21 15:41 History of Present Illness HPI Narrative: 76 yo female presents to the ED after a fall. She reports that she stumbled back wards and fell, striking her head on the ground. She sustained a posterior scalp laceration. She has mild pain at the site of the injury and in her neck. No LOC, weakness, numbness, confusion. Related Data Home Medications Medication Instructions Recorded Confirmed aspirin 81 mg PO DAILY 09/13/19 09/13/19 cholecalciferol (vitamin D3) 5,000 unit PO DAILY 09/13/19 09/13/19 [Vitamin D3] calcium carbonate 600 mg calcium 600 mg PO DAILY 09/20/20 (1,500 mg) tablet latanoprost 0.005 % eye drops 1 drp EACH EYE DAILY 09/20/20 Allergies Allergy/AdvReac Type Severity Reaction Status Date / Time Penicillins Allergy Intermediate Swelling Verified 03/07/21 15:29 of Lip/Tongue/Throat acetaminophen [From Vicodin] AdvReac Intermediate Nausea and Verified 03/07/21 15:29 Vomiting hydrocodone [From Vicodin] AdvReac Intermediate Nausea and Verified 03/07/21 15:29 Vomiting Review of Systems Review of Systems: All systems reviewed & are unremarkable except as noted in HPI and below Constitutional: Constitutional: Denies fever(s) Eyes: Eyes: Reports no additional eye complaints ENT: Denies dizziness Cardiovascular: Cardiovascular: Denies chest pain Respiratory: Respiratory: Denies dyspnea Gastrointestinal: Gastrointestinal: Denies nausea Genitourinary: Genitourinary: Denies hematuria and Reports dysuria Musculoskeletal: Musculoskeletal: Denies back pain Neurologic: Reports confusion, Denies dizziness and Denies weakness [facility] Past Medical History Medical History Anemia Arthritis Degenerative disc disease Hyperlipidemia Hypertension Lumbar disc disease with radiculopathy Normal colonoscopy (~2014) Osteopenia Pleurisy Shingles Type 2 diabetes mellitus Uterine cancer Surgical History Surgical History H/O local excision of skin lesion finger History of hand surgery Right trigger finger release and tendon surgery. Status post appendectomy Status post breast biopsy With benign histology. Status post cataract extraction Status post dilation and curettage Status post hysterectomy Family History Family History Sibling Diabetes mellitus Breast cancer Sudden Father Hypertension Cerebrovascular accident Mother Heart disease Hypertension Social History Social History Social History: The patient lives in her own home in [place]. She has 7 children, whom she designates as her surrogate decision makers. In addition to her 7 children, she has 21 grandchildren, 25 great grandchildren, and 5 great great grandchildren. She wishes to be a full code. 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 She denies alcohol, tobacco, and drug use. Second hand tobacco smoke exposure: Yes Alcohol intake: current Alcohol use details: rare Substance use: never Substance use type: does not use Gender identity (if verbalized by the patient): Female Spiritual care concerns: No Agree to blood products: Yes Exam Const: General: healthy appearing, no acute distress and alert Orientation/consciousness: patient oriented x3 HENMT: Head: laceration (4 cm posterior scalp laceration) Eyes: Pupils: Equal, round and reactive pupils present EOM: EOMs intact bilaterally Neck: Neck: normal visual inspection Resp: Effort & Inspection: normal respiratory effort Auscultation: clear to auscultation bilaterally Cardio: Rate: regular rate Rhythm: regular rhythm Back/Spine/Pelvis: Cervical Sp
--- NOTE | 2021-03-07 15:53 | PC.NURSE ---
Dr. Casanova at bedside for pt assessment.
[2021-03-07 16:36] VITALS: BP 131/89; PULSE 78; RESP 14; O2SAT 100
== END 2021-03-07 16:37 | disposition home or self-care (01) ==
PROVIDERS: Emergency Provider Emergency Medicine; PCP Family Medicine
DX: S01.01XA Laceration without foreign body of scalp, initial encounter (principal); M19.90 Unspecified osteoarthritis, unspecified site; E78.5 Hyperlipidemia, unspecified; I10 Essential (primary) hypertension; M85.80 Other specified disorders of bone density and structure, unspecified site; E11.9 Type 2 diabetes mellitus without complications; Z85.42 Personal history of malignant neoplasm of other parts of uterus; Z86.2 Personal history of diseases of the blood and blood-forming organs and certain disorders involving the immune mechanism; Z79.82 Long term (current) use of aspirin; Z79.84 Long term (current) use of oral hypoglycemic drugs; Z98.49 Cataract extraction status, unspecified eye; M47.812 Spondylosis without myelopathy or radiculopathy, cervical region; W01.0XXA Fall on same level from slipping, tripping and stumbling without subsequent striking against object, initial encounter
CPT/HCPCS: 12002; 70450; 72125; 93005; 99284

== ENCOUNTER → 2021-04-26 09:52 | Outpatient (CLI) | payer MEDICARE, BC, SELFPAY ==
--- NOTE | ~2021-04-26 | MMUS_ITS ---
EXAMINATION: MM diagnostic den BI w ramya, US breast BI complete HISTORY: Bilateral mammographic asymmetry reported on 02/28/2021 screening mammogram examination TECHNIQUE: Additional 3-D tomosynthesis images of both breasts were performed and synthetic 2-D image s were generated. CAD analysis was submitted and interpreted. High resolution complete bilateral acosta st ultrasound was performed. COMPARISON: 02/28/2021, 02/18/2018, 01/09/2016 bilateral digital screening mammogram examinations BREAST PARENCHYMAL COMPOSITION: There are scattered areas of fibroglandular density. FINDINGS: MAMMOGRAPHIC FINDINGS: No suspicious reproducible mass or architectural distortion or any malignant calcification, skin thic kening or retraction is detected. ULTRASOUND: No suspicious solid lesion or shadowing of either breast is detected. Right breast: 8:00 5 cm from nipple: Parallel circumscribed hypoechoic 2.8 x 6.3 x 3.1 mm sonolucency, without post erior shadowing, benign in appearance 9:00 7 cm from nipple: Similar 2.3 x 5.1 x 2.9 mm sonolucency, likely a small cyst 10:00 5 cm from nipple: Septated 2.8 x 4.7 mm cyst with through transmission and posterior enhancemen t 9:00 9 cm from nipple: 3.8 x 6.9 mm circumscribed benign-appearing lymph node Left breast: 2:00 5 cm from nipple: 2.8 x 7.9 x 5.8 mm parallel circumscribed sonolucency with through transmissio n, consistent with a small cyst IMPRESSION: 1. Benign findings 2. Routine mammographic screening is recommended BI-RADS Category 2: Benign finding(s). Reviewed, dictated and finalized at location A. IMPRESSION: 1. Benign findings 2. Routine mammographic screening is recommended BI-RADS Category 2: Benign finding(s).
== END ==
PROVIDERS: PCP Family Medicine; Visit Provider Family Medicine
DX: R92.8 Other abnormal and inconclusive findings on diagnostic imaging of breast (principal)
CPT/HCPCS: 76641; 77062; 77066; G0279

== ENCOUNTER 2021-06-05 08:00 | Outpatient (RCR) | payer MEDICARE, BC, SELFPAY ==
--- NOTE | 2021-04-07 13:56 | PTOPEVAL ---
Thank you for referring Génesis Chan to [facility].? The patient is scheduled to be seen for therapy? 2 x/week for 8 weeks. Please review, sign, date and return this plan of care CHRISTY. I agree with and certify that the following plan of care is medically necessary. Referring Physician Date Attending Provider: Elayne Hill MD Problem Diagnosis spinal stenosis, disc disorders with radiculopathy Onset 2-3 months ago Additional Evaluation Detail She passed out hitting her head when she bent over 1 month ago. She has not negotiating the steps since the fall. MRI 3 mm anterolisthesis of L4 on L5 and L5 on S1. There is mild chronic anterior wedging of T12 and L1 vertebral bodies She was hospitalized 10/08 for what see believes was undiagnosed COVID. She has declined with function since then. Subjective Information She c/o low back pain which Query Text:As Reported By Patient/ radiates into romero post legs/ Family buttock region. She reports increased pain with household task of cooking and cleaning. She will have increased pain with trunk motion, ADL's, standing, sitting and mobility. Her pain levels and george with activities varies daily. Diagnostic Tests MRI For This Problem Yes: Severe lumbar spondylosis , bulging disc Pain Assessment Self Report Pain Assessment Bilateral Lower Back Reported Pain Level 7 Pain Description Aching,Burning,Numbness, Radiating,Sharp,Tingling Pain Radiation Left Leg,Right Leg Pain Frequency Continuous Lowest Pain Intensity 4 Greatest Pain Intensity 9 Pain Aggravating Factors ADL's,Bending,Exercise/ Activity,Lifting,Sitting, Walking,Weight Bearing/ Standing Cervical and Lumbar ROM Lumbar ROM Lumbar Comments seated full flex- no pain rotation right: 75% painful, left:25% painful Cervical and Lumbar Muscle Testing Lumbar Strength Upper Abdominal Strength 3-Fair- Lower Abdominal
--- NOTE | 2021-05-11 11:18 | PTOPEVAL ---
Physical therapy progress note Thank you for referring Génesis Chan to [facility].?Génesis has received 11 therapy visits to address her back pain. She reports inconsistent progress with daily task and symptoms with therapy. She is progressing slowly towards her therapy goals. See summary below for objective information on progress. The patient is scheduled to be seen for therapy? 2 x/week for 3 weeks. Please review, sign, date and return this plan of care CHRISTY. I agree with and certify that the following plan of care is medically necessary. Referring Physician Date Attending Provider: Elayne Hill MD Diagnosis spinal stenosis, disc disorders with radiculopathy Onset 2-3 months ago Additional Evaluation Detail She passed out hitting her head when she bent over 1 month ago. She has not negotiating the steps since the fall. MRI 3 mm anterolisthesis of L4 on L5 and L5 on S1. There is mild chronic anterior wedging of T12 and L1 vertebral bodies She was hospitalized 10/08 for what see believes was undiagnosed COVID. She has declined with function since then. Subjective Information She reports increased Query Text:As Reported By Patient/ stiffness and pain today when Family trying to get out of bed. She reports improved symptoms and limitations prior to the cold weather change. She is performing stretches daily. She cont to c/o low back pain which radiates into romero post legs/buttock region. She only george 10 min of standing with household task, then must sit to decrease pain. She was having improved sypmptoms with dressing until the past 2 days. She is walking daily for 10 min and riding stationary bike 10-15 min 4x/wk. Pain Assessment Bilateral Lower Back Reported Pain Level 8 Pain Description Aching,Burning,Numbness, Radiating,Sharp,Tingling Lowest Pain Intensity 1 Greatest Pain Intensity 8 Cervical and Lumbar ROM Lumbar ROM Lumbar Flexion Active
--- NOTE | 2021-06-05 08:44 | PCPTNOTE ---
Admitting Provider: Attending Provider: Elayne Hill MD Patient:Génesis Chan Date of :1945 Physical Therapy Discharge Note Patient has received 14 therapy visits since 04/07/21 to 06/05/21. She has been instructed in a HEP and demonstrates understanding. As result of skilled therapy services she demonstrates improved trunk motion, improved LE strength and improved ability to perform daily task. She has partially achieved her therapy goals at this time. She has reached maximal potential with skilled therapy services at this time. Will DC skilled therapy services with recommendation for her to perform her HEP and f/u with her doctor as needed for the continued symptoms. Thank you for referring this patient to [facility]. Please review, sign, date and return this discharge summary CHRISTY. I have been updated about the patient's current status and I agree with discharge from the above service at this time. Referring Physician Date
== END 2021-06-05 11:45 | disposition home or self-care (01) ==
LOC: ANHPT 08:00
PROVIDERS: PCP Family Medicine; Visit Provider Family Medicine
DX: M48.00 Spinal stenosis, site unspecified (principal); M51.16 Intervertebral disc disorders with radiculopathy, lumbar region
CPT/HCPCS: 97014; 97110; 97140; 97162; G0283

== ENCOUNTER 2022-07-25 15:00 | Outpatient (RCR) | payer MEDICARE, BC, SELFPAY ==
--- NOTE | 2022-05-23 11:08 | PTOPEVAL1 ---
Assessment and note entered by Myesha Gomez, PT Evaluation Information Assessment Status Evaluation Diagnosis lumbar spondylosis Onset January 2022 Subjective Information chronic back pain; had pain management- injections, helped some but still hurts, more in last few months, no longer seeing pain mgt ; is not a surgical candidate; Reported Pain Level Pain Score Self Report Additional Pain Score Comments pain range of 4-10; lower lumbar and sacral pain, with pulling into B posterior mid calf- intermittent; increase with stand to sitting position and when wake up in AM; decrease with change position; take aleve; heat and ice help and have new pain patch of lidocaine; once get comfortable, can sleep OK; report standing/ walking tolerance of 10 min; Assessment PT Clinical Summary Génesis has the diagnosis of lumbar spondylosis. She has a history of chronic back pain and MRI last year reports severe lumbar spondylosis. Radicular pain into B LE, to mid calf and intermittent. She had PT here about one year ago- -stim helped her pain. Self assessment with the Oswestry functional score of 46% limitation in activity level. With the evaluation, she has weakness throughout trunk, and legs, with tightness over hamstrings, anterior hip, knee extension muscles. 2 minute walking test distance is 190' and 5 reps sit/stand time is 25 seconds. She has a poor walking pattern with decreased balance, reaching out for furniture and unstable over hips. Skilled PT services are indicated for modalities to decrease pain; therapeutic exercises and activities to improve strength and standing/gait balance with education for home exercises, posture and safety training. Plan of Care Interventions Electrical Stimulation,Gait Training,Hot Pack/Cold Pack,Manual Therapy,Mechanical Traction,Neuro Re- education,Patient/Caregiver Education,Therapeutic Activities,Therapeutic Exercise PT Services Indicated Yes Treatment Frequency and 2x/wk for 5 weeks Duration These treatments will address the objective and functional deficits as defined above. The patient will be advanced safely and appropriately in order for the patient to progress towards his/her prior level of function. Additional exercises will be introduced and as well as a comprehensive home exercise program upon disch
--- NOTE | 2022-06-27 13:22 | PTOPPROG ---
Assessment and note entered by Myesha Gomez, PT Evaluation Information Assessment Status Progress Diagnosis lumbar spondylosis Onset January 2022 Subjective Information Génesis reports: easier to get up/down from toliet back is better since coming for therapy; have been doing the exercises and riding my stationary bike at home for 10 minutes; pain range of 3-8/10; spasms and tight over L sacral area; radicular pain intermittent into R LE to posterior mid calf & L LE to posterior mid calf; also have neuropathy pain in legs; unable to identify what makes pain increase; decrease with pain meds, heat pad, sit/rest; reported walking/standing tolerance of 60 min; Oswestry self assessment functional score of 36% limitation in activity level; Assessment PT Clinical Summary Génesis has received 9 PT sessions. Compared to initial evaluation: pain rating has decreased from 4-10/10 to 3-8/10; radicular pain continues into both R and L LE to calf, intermittent; no longer has an increase in pain with sit to stand transfer; reported standing/ walking tolerance has increased from 10 to 60 minutes; Self assessment Oswestry improved by 10% ; 2 minute walking test distance increased by 110 '; 5 reps sit/stand improved by 4 seconds; flexibility of R and L hamstring and anterior hip/ quad are about the same; increase strength of B hips with mat exercises; She has been educated on home exercises and techniques for pain management. The goals were partially met. Continue PT to further decrease pain and increase strength and flexibility of trunk/hips. Plan of Care Interventions Manual Therapy,Neuro Re-education,Patient/ Caregiver Education,Therapeutic Activities, Therapeutic Exercise,Ultrasound PT Services Indicated Yes Treatment Frequency and 1-2x/wk for 4 weeks, depending upon availability Duration of schedule These treatments will address the objective and functional deficits as defined above. The patient will be advanced safely and appropriately in order for the patient to progress towards his/her prior level of function. Additional exercises will be introduced and as well as a comprehensive home exercise program upon discharge, if needed, ?to ensure carryover of functional gains achieved in the clinic. This treatment plan has been reviewed and agreement upon by the patient.
--- NOTE | 2022-07-04 13:52 | PCPTNOTE ---
Patient did not show up for scheduled appointment this date.
--- NOTE | 2022-07-25 15:37 | PTOPDC ---
Assessment and note entered by Myesha Gomez, PT Evaluation Information Assessment Status Discharge Diagnosis lumbar spondylosis Onset January 2022 Subjective Information Génesis reports: back is about the same; doing the exercises Reported Pain Level Pain Score Self Report Additional Pain Score Comments pain range 2-4/10; radicular pain R LE lateral thigh to above knee/ L LE to mid buttock;able to be up and moving around more, 10-15 min then have to sit down; doing the exercises at home; cannot really find a pattern for the pain, but sometimes when depressed tends to hurt more; Pain increase with walking/standing; decrease rub back, heat pad, take aleve; may get home stim unit ALSO reports pain in both knees; Assessment PT Clinical Summary Génesis has had 14 PT sessions. Compared to the last reevaluation: she has improved with: pain rating from 3-8/10 to 2-4/10; less radicular pain into R and L leg; 5 reps sit/ stand time by 4 sec; 2 minute walking test distance by 40'; flexibility of R and L hamstring and quad/anterior hip length; strength of L hip abduction and R and L hip extension motions; Oswestry self assessment functional score by 8%; The goals were partially achieved. Discharge PT services. She is to continue to perform her HEP and monitor her activity balance with rest/activity. Plan of Care PT Services Indicated No
== END 2022-07-26 08:41 | disposition home or self-care (01) ==
LOC: ANHPT 15:00
PROVIDERS: PCP Family Medicine; Visit Provider Family Medicine
DX: M47.816 Spondylosis without myelopathy or radiculopathy, lumbar region (principal)
CPT/HCPCS: 97014; 97110; 97112; 97162; 97530; 99199; G0283

== ENCOUNTER → 2023-01-02 12:23 | Outpatient (CLI) | payer MEDICARE, BC, SELFPAY ==
--- NOTE | ~2023-01-02 | DEXA_ITS ---
Bone Density Report Name: JASMIN ECHOLS Age: 77 Sex: Female Ethnicity: Black Date of : 1945 Indication: postmenopausal; screening for osteoporosis; height loss; prior fracture; hysterectomy; Referring Provider: HECTOR BELTRAN Study: Bone densitometry was performed. Exam Date: January 02, 2023 Accession number: [id number] Bone Density: Region BMD T-score Z-score Classification AP Spine (L1, L2, L3) 1.005 -0.1 1.8 Normal Femoral Neck (Left) 0.680 -1.5 -0.1 Osteopenia Total Hip (Left) 0.846 -0.8 0.3 Normal Femoral Neck (Right) 0.656 -1.7 -0.3 Osteopenia Total Hip (Right) 0.796 -1.2 0.0 Osteopenia Total Hip Mean 0.821 -1.0 0.2 Normal World Health Organization criteria for BMD impression classify patients as: Normal (T-score at or above -1.0), Osteopenia (T-score between -1.0 and -2.5), or Osteoporosis (T-score at or below -2.5). 10-year Fracture Risk(1): Major Osteoporotic Fracture 9.3% Hip Fracture 2.0% Reported Risk Factors: [place] (Black), Neck BMD=0.656, BMI=32.2, previous fracture (1) FRAX(R) Version 3.08. Fracture probability calculated for an untreated patient. Fracture probability may be lower if the patient has received treatment. Previous Exams: Region Exam Age BMD T-score BMD Change BMD Change Date g/cm2 vs Baseline vs Previous AP Spine(L1, L2, L3) 01/02/2023 77 1.005 -0.1 0.006 0.006 02/10/2019 74 0.998 -0.2 Total Hip(Left) 01/02/2023 77 0.846 -0.8 -0.059* -0.059* 02/10/2019 74 0.905 -0.3 Total Hip(Right) 01/02/2023 77 0.796 -1.2 -0.069* -0.069* 02/10/2019 74 0.865 -0.6 *Denotes significance at 95% confidence level, LSC for AP Spine = 0.022 g/cm2, LSC for Total Hip = 0.027 g/cm2 Clinical Information Provided by Patient: Has had a low trauma fracture Has used the following medications: Vitamin D, Calcium Has the following medical conditions: Hysterectomy, Hx of ovarian ca- at age 41 Patient maximum height was 64.0 Menopause Age: 41 No regular weight bearing exercise Drinks caffeinated beverages Onset of menses at age 12 Number of children 7 Impression: The patient has low bone mass, based on the Right Femoral Neck T-score. The patient has an estimated ten-year risk of hip fracture of 2% and an estimated ten-year risk of major fracture of 9.3%, based on the WHO FRAX algorithm. The patient has risk factors, including: previous fracture. The BMD
--- NOTE | ~2023-01-02 | MM_ITS ---
EXAMINATION: MM screening den BI w ramya HISTORY: Screening mammogram, family history of breast cancer in her sister. TECHNIQUE: Craniocaudal and mediolateral oblique 3-D tomosynthesis images were obtained and synthetic 2-D images were generated. CAD analysis was submitted and interpreted. COMPARISON: 04/26/2021, 02/28/2021, 02/18/2018 BREAST PARENCHYMAL COMPOSITION: There are scattered areas of fibroglandular density. FINDINGS: No suspicious mass, calcification, or architectural distortion are identified in either jinny ast to suggest malignancy. There has been no suspicious interval change. IMPRESSION: 1. No mammographic evidence of malignancy. 2. Recommend routine screening mammography in one year. BI-RADS Category 1: Negative Reviewed, dictated and finalized at location A.
== END ==
PROVIDERS: PCP Physician Assistant Medical; Visit Provider Physician Assistant Medical
DX: Z12.31 Encounter for screening mammogram for malignant neoplasm of breast (principal); Z78.0 Asymptomatic menopausal state; M85.852 Other specified disorders of bone density and structure, left thigh; M85.851 Other specified disorders of bone density and structure, right thigh
CPT/HCPCS: 77063; 77067; 77080

== ENCOUNTER → 2023-07-23 09:30 | Outpatient (CLI) | payer MEDICARE, BC, SELFPAY ==
--- NOTE | ~2023-07-23 | MMUS_ITS ---
EXAMINATION: MM diagnostic den RT w ramya, US breast RT limited HISTORY: Right nipple discharge TECHNIQUE: Craniocaudal, mediolateral, and mediolateral oblique 3-D tomosynthesis images of the right breast were performed and synthetic 2-D images were generated. CAD analysis was submitted and interp reted. High resolution limited right breast ultrasound was performed. COMPARISON: 01/02/2023, 04/26/2021, 02/28/2021, 02/18/2018 BREAST PARENCHYMAL COMPOSITION: There are scattered areas of fibroglandular density. FINDINGS: MAMMOGRAPHIC FINDINGS: No suspicious mass, calcification, or architectural distortion are identified to suggest malignancy. There has been no suspicious interval change. No mammographic correlate is identified for the patient 's reported right nipple discharge. ULTRASOUND: There are mildly dilated subareolar ducts. No suspicious sonographic correlate is identified for the patient's reported nipple discharge. There is a 4 mm cyst at the 2:00 location, 4 cm from the nipple. IMPRESSION: 1. No specific mammographic or sonographic correlate is identified for the patient's reported right n ipple discharge. Further evaluation at this time should be based on clinical assessment. Consider carlie gical evaluation. Continued follow-up physical examination is recommended. 2. Recommend screening mammography while the patient remains in good health. BI-RADS Category 2: Benign finding(s). Reviewed, dictated and finalized at location A. PUTTER AWAY IMPRESSION: 1. No specific mammographic or sonographic correlate is identified for the tamie ent's reported right nipple discharge. Further evaluation at this time should b e based on clinical assessment. Consider surgical evaluation. Continued follow- up physical examination is recommended. 2. Recommend screening mammography while the patient remains in good health. BI-RADS Category 2: Benign finding(s).
== END ==
PROVIDERS: PCP Family Medicine; Visit Provider Physician Assistant
DX: N64.52 Nipple discharge (principal); N64.4 Mastodynia
CPT/HCPCS: 76642; 77061; 77065; G0279

== ENCOUNTER 2023-08-13 12:42 | Outpatient (CLI) | payer MEDICARE, BC, SELFPAY ==
--- NOTE | ~2023-08-13 | MR_ITS ---
MR breast BI wo/w con 08/14/2023 15:40 PAINTER TOUCH UP INDICATION: Right bloody nipple discharge. TECHNIQUE: MRI of the breasts perform using standard protocol pre-and post IV contrast with the follo wing sequences: Axial T2 STIR, axial T1, axial vibrant T1 with fat suppression precontrast and multip hasic postcontrast. COMPARISON: Mammogram and ultrasound dated 07/23/2023 FINDINGS: There are no abnormalities on the precontrast sequences. There is mild background parenchym al enhancement. There is regional nonmass-like heterogeneous enhancement with rapid washout kinetics. The area of enhancement involves the lower outer quadrant at the 7:00 position, middle third measuri ng 6.4 x 2.2 x 1.9 cm originating approximately 3.4 cm posterior to the nipple No evidence of signal abnormalities in the axillary or internal mammary node distributions. LEFT BREAST: No signal abnormalities on precontrast sequences. There is mild background parenchymal enhancement. No enhancing lesions following contrast administration. No areas of enhancement meeti ng threshold criteria on CAD analysis. No evidence of signal abnormalities in the axillary or inter nal mammary node distributions.] IMPRESSION: 1: Right breast: Regional nonmass-like enhancement centered in the lower outer quadrant of the right breast, middle third measuring 6.4 x 2.2 x 1.9 cm. Findings are suspicious for malignancy. MRI guide d biopsy recommended. BI-RADS Category 4. 2: Left breast: Negative. No evidence of malignancy. BI-RADS category 1. Recommend annual mammogr aphy follow-up. Reviewed, dictated and finalized at location B. TER TOUCH UP IMPRESSION: 1: Right breast: Regional nonmass-like enhancement centered in the lower outer quadrant of the right breast, middle third measuring 6.4 x 2.2 x 1.9 cm. Findi ngs are suspicious for malignancy. MRI guided biopsy recommended. BI-RADS Categ ory 4. 2: Left breast: Negative. No evidence of malignancy. BI-RADS category 1. Re commend annual mammography follow-up.
== END 2023-08-13 12:43 | disposition home or self-care (01) ==
LOC: ANHIMG 12:48
PROVIDERS: PCP Family Medicine; Visit Provider Surgery
DX: N64.52 Nipple discharge (principal); R92.8 Other abnormal and inconclusive findings on diagnostic imaging of breast
CPT/HCPCS: 77049; A9577; C8908

== ENCOUNTER 2023-09-27 12:27 | Outpatient (CLI) | payer MEDICARE, BC, SELFPAY ==
--- NOTE | 2023-09-27 12:44 | ECG_ITS ---
Measurements Intervals [place] Rate: 79 P: 62 WY: 205 QRS: -58 QRSD: 138 T: 79 QT: 399 QTc: 459 Interpretive Statements SINUS RHYTHM MARKED LEFT AXIS DEVIATION [QRS AXIS < -30] LEFT BUNDLE BRANCH BLOCK [120+ ms QRS DURATION, 80+ ms Q/S IN V1/V2, 85+ ms R IN I/aVL/V5/V6] ABNORMAL ECG COMPARED TO ECG 03/07/2021 13:41:55 COMPLETE LEFT BUNDLE BRANCH BLOCK IS NOW EVIDENT Electronically Signed On 09-27-2023 15:41:20 [employer]INE SCIENCE INSTRU[employer] by Juancarlos Baeza M.D.
[2023-09-27 13:35] LABS: Anion Gap 4 mmol/L (8-16); Blood Urea Nitrogen 19 mg/dL (7-17); Carbon Dioxide 29 mmol/L (22-30); Chloride 108 mmol/L (98-107); Estimated Glomerular Filt Rate > 60; Glucose 125 mg/dL (65-110); Potassium 4.1 mmol/L (3.4-5.0); Sodium 141 mmol/L (137-145)
== END 2023-09-27 12:28 | disposition home or self-care (01) ==
LOC: ANHSURGERY 12:36
PROVIDERS: Anesthesiology; PCP Family Medicine; Visit Provider Surgery
DX: D05.11 Intraductal carcinoma in situ of right breast (principal); E11.9 Type 2 diabetes mellitus without complications; Z01.818 Encounter for other preprocedural examination; I44.7 Left bundle-branch block, unspecified
CPT/HCPCS: 36415; 80048; 86850; 86900; 86901; 93005

== ENCOUNTER 2023-10-01 01:26 | Day surgery (SDC) | payer MEDICARE, BC, SELFPAY ==
[2023-09-24 15:21] VITALS: BMI 29.9
--- NOTE | 2023-09-24 15:37 | PC.NURSE ---
PRE-OP INSTRUCTIONS, PLEASE READ CAREFULLY Report to the Outpatient Waiting Room, entrance under the green pavilion located off [facility], at time _0930_ on date _10/01/23_. Planned Procedure Time: _1130_. PACK A SMALL OVERNIGHT BAG AND LEAVE IT IN THE CAR Time changes happen often and if your time is changed the preop area will call you the afternoon before. - You and your visitor will be asked to self-screen and do not enter if you have any COVID symptoms. - A mask is optional within the hospital at this time. -VISITING HOURS 8AM-8PM - ONLY 2 VISITORS ALLOWED IN THE PRE-OP AREA Patients may have clear liquids (water, carbonated beverages, clear teas, apple juice) until 3 hours prior to surgery (0830 AM) with a maximum of 20 ounces. - No food from midnight until time of surgery Take the following medications with a SIP of water the morning of surgery: _AMLODIPINE_ DO NOT STOP ANY OF YOUR OTHER PRESCRIPTION MEDICATIONS PRIOR TO SURGERY ?EXCEPT THE FOLLOWING Medications to discontinue per physician ___NONE___, Date to take last dose Please no make-up, nail qatari, hairspray, perfume, deodorant, or body powder the day of surgery. No jewelry (including any body piercings) or valuables the day of surgery, leave them at home. Please take a shower or bath the night before, or the morning of, surgery with an antibacterial soap. Wear comfortable, loose fitting clothing. - Jewelry must be removed prior to entering the operating room. Rings and piercings that are not removed may be cut off. - The hospital will not accept responsibility for valuables. - Please leave all valuables, including medications, at home the day of surgery. If you are going home after surgery, a licensed ross carrier driver must drive you home. - NO public transportation without another adult if you receive anesthesia. - We recommend that an adult stay with you for 24 hours following discharge. - We also recommend that you do not drive, make important decision, drink alcoholic beverages, or take any drugs that were not prescribed by your health care provider for at least 24 hours after your discharge time. Follow any additional instructions given to you from your surgeon. If you or anyone in your household have experienced Covid symptoms in the past week, please notify your surgeon or the nurse liaison at the phone number below for possible testing. Telephone instructions given to _PATIENT_and asked if any additional questions and then verbalized understanding. Patient advised to call surgeon office or pre surgery nurse liaison [phone] if any additional questions.
--- NOTE | 2023-09-30 14:44 | WPDANESEPPF ---
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 Patient Data Age: 78 Gender: F Height: 1.6 m Weight: 76.81 kg Allergies Allergy/AdvReac Type Severity Reaction Status Date / Time Penicillins Allergy Intermediate Swelling Verified 10/01/23 11:04 of Lip/Tongue/Throat hydrocodone [From Vicodin] AdvReac Intermediate Nausea and Verified 10/01/23 11:04 Vomiting Home Medications Medication Instructions Recorded Confirmed Type aspirin 81 mg chewable tablet 81 mg PO DAILY 09/13/19 10/01/23 History cholecalciferol (vitamin D3) 125 5,000 unit PO DAILY 09/13/19 10/01/23 History mcg (5,000 unit) tablet (Vitamin D3) pravastatin 40 mg tablet See Rx Instructions .Route 11/18/22 10/01/23 Rx .COMPLEX #90 tabs meclizine 12.5 mg tablet See Rx Instructions PO TID PRN 04/25/23 09/24/23 Rx dizziness #30 tabs latanoprost 0.005 % eye drops 1 drp EACH EYE DAILY #7.5 mL 04/29/23 10/01/23 Rx metformin 500 mg tablet See Rx Instructions .Route 05/01/23 10/01/23 Rx .COMPLEX #90 tabs losartan 100 mg tablet 100 mg PO DAILY #90 tabs 07/10/23 10/01/23 Rx amlodipine 5 mg tablet See Rx Instructions .Route 09/17/23 10/01/23 Rx .COMPLEX #90 tabs fluticasone propionate 50 1 spray intranasal Q12H PRN 09/24/23 09/24/23 History mcg/actuation nasal Congestion spray,suspension Patient hx anesthesia problems: none Family hx anesthesia problems: none Results Review: All pre-operative results and documents have been reviewed as part of the pre-operative evaluation. [facility] Past Medical History Medical History (Updated 09/30/23 @ 14:45 by Jeet Isabel DO) Anemia Arthritis Breast cancer, right Degenerative disc disease Hyperlipidemia Hypertension Lumbar disc disease with radiculopathy Normal colonoscopy (~2015) Osteopenia Pleurisy Shingles Type 2 diabetes mellitus Uterine cancer Vitamin B12 deficiency Surgical History Surgical History H/O local excision of skin lesion finger History of hand surgery Right trigger finger release and tendon surgery. Status post appendectomy Status post breast biopsy With benign histology. Status post cataract extraction Status post dilation and curettage Status post hysterectomy Family History Family History Sibling Diabetes mellitus Breast cancer Sudden Father Hypertension Cerebrovascular accident Mother Heart disease Hypertension Social History Social History (Updated 07/29/23 @ 10:13 by Amber Sahni [facility]) Social History: The patient lives in her own home in [place]. She has 7 children, whom she designates as her surrogate decision makers. In addition to her 7 children, she has 21 grandchildren, 25 great grandchildren, and 5 great great grandchildren. She wishes to be a full code. 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 She denies alcohol, tobacco, and drug use. Smoking status: Never smoker Second hand tobacco smoke exposure: No Alcohol intake: never Alcohol use details: rare Substance use: never Substance use type: does not use Lack of Transportation: YES Lack of Food: Never True Current Housing: I Have Housing Concerned About Future Housing: No Difficulty Paying Gas/Electric Bills: No Difficulty Paying for Meds: No Currently Unemployed: No Education: High School Diploma/GED Difficulty w/ Childcare or Family Care: No Living arrangements: with family Addit
[2023-10-01] VITALS (11 sets, daily range): BP systolic 115–178; BP diastolic 57–98; PULSE 83–95; RESP 15–100; TEMP 36.2–37.4; O2SAT 97–100
--- NOTE | 2023-10-01 09:52 | WPDHPUPDATE1 ---
History and Physical Update Update Date/Time: 10/01/23 09:52 History and Physical has been reviewed, including an updated exam of the patient. There are NO changes in the patient's condition. Risks, benefits, and alternatives have been discussed and questions answered. Patient agrees to proceed with procedure.
[2023-10-01] MEDS: LIDOCAINE/PRILOCAINE CREAM 2.5-2.5% TUBE 1 EACH TOPICAL (09:58)
[2023-10-01] MEDS: LACTATED RINGERS 1,000 ML 30 ML IV CONT ×2 (10:45→15:30)
[2023-10-01] MEDS: ACETAMINOPHEN 500 MG TABLET 1000 MG PO (10:52)
[2023-10-01 11:00] LABS: Glucose Point of Care 124 mg/dl (65-105)
[2023-10-01] MEDS: ceFAZolin 2 GM/D5W 50 ML 2 GM/50 ML BAG IVPB (12:20)
[2023-10-01] MEDS: BUPIVACAINE/EPINEPHRINE 0.5% 30 ML VIAL 20 ML INFILTRATE (12:57)
--- NOTE | 2023-10-01 15:30 | W.PM.PROC2 ---
Procedure Note - Detailed Date of Procedure 10/01/23 Pre-op Diagnosis right breast ductal carcinoma in situ Post-op Diagnosis Same Procedure Performed 1. Right total non nipple sparing mastectomy 2. Right axillary sentinel lymph node biopsy 3. Injection of magtrace for sentinel lymph node mapping 4. Adjacent tissue transfer 7cm x 25cm for flat aesthetic closure Surgeon Kathrine Hernadez MD Re Dye Hand Melvi Ferraro PA-C Anesthesia General Indications 78-year-old female evaluated for? right bloody nipple discharge who was found to have DCIS suspicious for extensive disease on MRI (at least 8.8cm in length) involving the nipple. Patient was evaluated by Oncology and after reviewing her options of treatment, she has elected to proceed with a right total non nipple sparing mastectomy with a flat closure, as patient is not interested in reconstruction at this time. ? We also discussed recommendation for performing a right sentinel lymph node biopsy at the same time of mastectomy, as per guideline recommendation and given the risk of upgrading to invasive disease on final path report. ? Risks of the procedure were discussed with the patient which included but not limited to risk of bleeding, infection, recurrence, possible need for additional procedures in the future, wound healing problems, scar, pain, as well as the risk of anesthesia.? All questions were answered patient agreed to proceed. Description of Procedure Patient was identified in the preoperative holding area brought to the operating room suite.? She was placed supine operating table sequential compression devices were applied. General anesthesia was induced without difficulty. Mag trace (2cc) was injected in the subdermal periareolar area as well as the retroareolar tissue planes for sentinel lymph node mapping, as well as diluted methylene blue 50:50. Right chest and right axillary areas were prepped draped in sterile fashion. The sentimag probe was used to find the area of highest radio activity in the right axilla, and an incision was made overlying this area that was incorporated into the mastectomy incision.? Dissection was carried down through the subcutaneous tissue and the clavipectoral fascia was incised.? I was able to identify a node that was hot and blue.? This was gently grasped and excised using the LigaSure device.? The sentimag probe was used to obtain account which was approximately 9000.? This was sent to pathology as a permanent specimen.? The gamma probe was again used to scan the axilla trying to identify another node that was at least 10% of the original sentinel lymph node count.?Another node was identified and excised, and sent to pathology as fresh specimen. The probe was used again to scan the axilla and no further hot or blue nodes were identified. The axilla was irrigated and hemostasis was assured.? The clavipectoral fascia was approximated with a running 3-0 Vicryl. Attention was turned to the right breast.??An elliptical incision encompassing the nipple areolar complex was made and dissection was carried down through the subcutaneous tissue and continued through the thin areolar tissue plane between the subcutaneous tissue with the breast tissue superiorly to the inferior border of the clavicle.? We then continued our dissection medially to the lateral aspect of the sternum, inferiorly to the inframammary fold and laterally to latissimus.? Once this was performed the breast tissue along with the pectoralis fascia was dissected off the pectoralis muscle posteriorly.? The mastectomy specimen was then marked short stitch superior long stitch lateral stitch lateral for orientation.? The specimen was then sent to pathology as a fresh specimen.? Hemostasis was assured. A 10Fr flat drain was placed above the pectoralis muscle and secured to the skin with silk suture. ?Given the redundant skin flap inferiorly, decision was made to use the inferior skin flaps to create a squires inferior mound a
[2023-10-01] MEDS: NALOXONE HCL 0.4 MG/ML VIAL IV PUSH (15:37)
[2023-10-01 15:41] LABS: Glucose Point of Care 155 mg/dl (65-105)
[2023-10-01] MEDS: fentaNYL CITRATE INJ (*CRX) 100 MCG/2 ML VIAL 25 MCG IV PUSH ×4 (15:51→16:19)
[2023-10-01] MEDS: ONDANSETRON INJ 4 MG/2 ML VIAL IV PUSH ×2 (16:14→17:48)
--- NOTE | 2023-10-01 16:32 | SUR.PHASEI ---
Notified anesthesia of patient's elevated BP. Order received for 5mg IV labetalol.
[2023-10-01] MEDS: LABETALOL HCL INJ 100 MG/20 ML VIAL IV PUSH (16:39)
[2023-10-01] MEDS: LACTATED RINGERS 1,000 ML 100 ML IV CONT (17:43)
[2023-10-01] MEDS: metFORMIN HCL 500 MG TABLET BY MOUTH (17:51)
[2023-10-01] MEDS: amLODIPine BESYLATE 5 MG TABLET BY MOUTH (17:53)
[2023-10-01] MEDS: PRAVASTATIN SODIUM 20 MG TABLET 40 MG BY MOUTH (17:54)
[2023-10-01] MEDS: LOSARTAN POTASSIUM 100 MG TABLET PO (17:56)
[2023-10-01 18:15] LABS: Glucose Point of Care 220 mg/dl (65-105)
--- NOTE | 2023-10-01 19:08 | OBPPTRN ---
1702 Patient transferred to post room #288 via bed. Support person present. Oriented to unit, room, information board, admission packet and security measures. Patient verbalizes understanding.
--- NOTE | 2023-10-01 20:26 | PC.NURSE ---
large area of blood noted on pad under pt, cap to SHELBY drain undone
[2023-10-01] MEDS: LATANOPROST 0.005% OP SOLN 2.5 ML BTL 1 DROP EACH EYE (21:03)
[2023-10-01 21:12] LABS: Glucose Point of Care 207 mg/dl (65-105)
[2023-10-02 00:12] VITALS: BP 131/68; PULSE 103; RESP 18; TEMP 37.1; O2SAT 99
[2023-10-02 04:00] VITALS: BP 157/66; PULSE 97; RESP 18; TEMP 36.9; O2SAT 100
[2023-10-02 07:35] VITALS: BP 115/40; PULSE 89; RESP 12; TEMP 36.8; O2SAT 98
[2023-10-02] MEDS: metFORMIN HCL 500 MG TABLET BY MOUTH (07:37)
[2023-10-02 07:42] LABS: Glucose Point of Care 228 mg/dl (65-105)
[2023-10-02] MEDS: ACETAMINOPHEN 500 MG TABLET PO (07:42)
--- NOTE | 2023-10-02 07:55 | WPDANESPN ---
Anes - Prog Note Post-Op Date/Time: 10/02/23 07:55 Cardiovascular status: normal Respiratory status: normal Airway patency: baseline Mental status: baseline Post-Op hydration status: normal Vital Signs: Last Vital Signs Temp 36.9 C 10/02/23 04:00 Pulse 97 10/02/23 04:00 Resp 18 10/02/23 04:00 BP 157/66 H 10/02/23 04:00 Pulse Ox 100 10/02/23 04:00 O2 Del Method Room Air 10/02/23 07:49 O2 Flow Rate 8 10/01/23 16:00 Pain Score (VAS): 0 I/O: Intake & Output 10/01/23 10/01/23 10/02/23 15:59 23:59 07:59 Intake Total 50 650 Output Total 225 155 Balance 50 425 -155 10/01/23 10/01/23 10/01/23 10:56 15:37 17:41 POC Capillary Glucose 124 H 155 H 220 H 10/01/23 10/02/23 21:06 07:33 POC Capillary Glucose 207 H 228 H Post-procedural complaints: none Patient Feedback: Patient satisfied with anesthetic care.
[2023-10-02] MEDS: amLODIPine BESYLATE 5 MG TABLET BY MOUTH (10:01)
[2023-10-02] MEDS: CHOLECALCIFEROL 1,000 UNITS TABLET 5000 UNITS PO (10:01)
[2023-10-02] MEDS: LOSARTAN POTASSIUM 100 MG TABLET PO (10:02)
--- NOTE | 2023-10-02 10:02 | PC.NURSE ---
On 10/02/23, the student, Victoria Underwood, provided care and completed [facility] documentation on this patient. I have reviewed the student's documentation and agree with the findings.
[2023-10-02] MEDS: PRAVASTATIN SODIUM 20 MG TABLET 40 MG BY MOUTH (10:03)
[2023-10-02] MEDS: DOCUSATE SODIUM 100 MG CAPSULE PO (10:03)
--- NOTE | 2023-10-02 11:14 | PM.PNGS ---
Progress Note: A&P Assessment and Plan (1) Ductal carcinoma in situ of right breast: Code(s): D05.11 - Intraductal carcinoma in situ of right breast Status: Acute Assessment and Plan: 78 y/o female h/o DM II and HTN, with R breast DCIS, recovering well POD#1 s/p R TM and SLNBx. Pt was admitted for observation following surgery, pain well managed and tolerating PO diet without issue overnight, drains improved in output and color, with expected post operative edema at surgical site. Reviewed impression and healing expectations with pt. Discussed signs/symptoms of concern including but not limited to SOB, chest pain, BLE pain, change in R chest surg site size, bleeding, redness, fever/chills, increased pain. Reviewed dressing/activity discharge instructions. All questions answered, pt in agreement with discharge home today. Seen and discussed with Dr. Hernadez. Plan 1) dc home 2) pain Rx sent to preferred pharmacy 3) drain care reviewed 4) follow up in office 1 week (2) Bloody discharge from right nipple: Code(s): N64.52 - Nipple discharge Status: Acute Subjective Subjective Date/Time Seen: 10/02/23 11:14 Interval history: Pt seen at bedside, family members present. No concerns overnight. Pain well managed. Tolerating PO diet, ambulating and voiding without issue. Denies fever/chills, bleeding, chest pain, SOB, BLE pain, abd pain, N/V/D. No bowel movement yet. Comfortable going home today. Exam Const: General: comfortable, no acute distress and alert Orientation/consciousness: oriented to person, oriented to place and oriented to time HENMT: Head: normal to inspection Eyes: Sclera: sclerae normal Chest: Other: Surgical bra c/d/i. R breast and NAC absent, with dermabond in place over IMF incision. Minimal R skin flap edema, no erythema, minimal ecchymosis distal superior skin flap at IMF. R breast drain site c/d, drain maintaining neg pressure with minimal sanguinous drainage. Minimal R chest tenderness, no fluctuance/mass/seroma/hematoma. Resp: Effort & Inspection: normal respiratory effort Cardio: Jugular venous distension: no JVD GI: GI Palp: No abdominal tenderness Objective Data Vital Signs Vital Signs: Vital Signs - 24 hr 10/01/23 15:30 10/01/23 15:45 10/01/23 16:00 Temperature 36.2 C L Pulse Rate 86 94 93 Respiratory Rate 15 100 H 18 Blood Pressure 148/92 H 152/85 H 144/73 H Pulse Oximetry 100 100 100 Oxygen Delivery Simple Face Mask Simple Face Mask Simple Face Mask Oxygen Flow Rate 8 8 8 10/01/23 16:15 10/01/23 16:39 10/01/23 16:30 Temperature Pulse Rate 95 88 88 Respiratory Rate 22 H 20 Blood Pressure 115/97 H 175/77 H Pulse Oximetry 97 100 Oxygen Delivery Room Air Room Air Oxygen Flow Rate 10/01/23 16:45 10/01/23 16:55 10/01/23 19:11 Temperature 36.9 C Pulse Rate 85 83 93 Respiratory Rate 20 16 16 Blood Pressure 178/62 H 162/60 H 153/98 H Pulse Oximetry 100 100 100 Oxygen Delivery Room Air Room Air Oxygen Flow Rate 10/01/23 19:11 10/01/23 20:30 10/01/23 20:30 Temperature 36.8 C Pulse Rate 92 92 Respiratory Rate 20 20 Blood Pressure 148/57 H Pulse Oximetry 98 98 Oxygen Delivery Room Air Room Air Oxygen Flow Rate 10/02/23 00:12 10/02/23 00:12 10/02/23 04:00 Temperature 37.1 C 36.9 C Pulse Rate 103 H 103 H 97 Respiratory Rate 18 18 18 Blood Pressure 131/68 157/66 H Pulse Oximetry 99 99 100 Oxygen Delivery Room Air Oxygen Flow Rate 10/02/23 04:00 10/02/23 07:49 10/02/23 07:35 Temperature 36.8 C Pulse Rate 97 89 Respiratory Rate 18 12 Blood Pressure 115/40 L Pulse Oximetry 100 98 Oxygen Delivery Room Air Room Air Oxygen Flow Rate Intake/Output Intake/Output: Intake & Output 09/29/23 09/30/23 10/01/23 10/02/23 23:59 23:59 23:59 23:59 Intake Total 700 Output Total 225 155 Balance 475 -155 Meds/Results Medications: Active Medications Generic Name D
--- NOTE | 2023-10-02 13:58 | PC.NURSE ---
0733 Stated that she had food to eat during the night and that is why her Blood Sugar is high.
--- NOTE | 2023-10-02 14:04 | PC.NURSE ---
10/01/2023 @ 191 while checking on the SHELBY drain the daughter Lizandro observed and stated that she remembers how it works and how to empty it.
== END 2023-10-02 12:12 | disposition home or self-care (01) ==
LOC: ANHSURGERY 09:51 → ANHOB2 16:59
PROVIDERS: PCP Family Medicine; Visit Provider Surgery
PROC: (CPT 19303; principal; 2023-10-01 11:30)
DX: D05.11 Intraductal carcinoma in situ of right breast (principal); N64.52 Nipple discharge; I10 Essential (primary) hypertension; E78.5 Hyperlipidemia, unspecified; E11.9 Type 2 diabetes mellitus without complications; E53.8 Deficiency of other specified B group vitamins; Z85.42 Personal history of malignant neoplasm of other parts of uterus; Z79.84 Long term (current) use of oral hypoglycemic drugs; Z79.82 Long term (current) use of aspirin; E66.9 Obesity, unspecified; Z68.30 Body mass index [BMI] 30.0-30.9, adult
CPT/HCPCS: 19303; 38525; 38900; 14301; 14302 ×4; 36415; 80048; 82948; 86850; 86900; 86901; 88305; 88307; 88342; 93005; 99199; A9270; J0690; J1100; J2310; J2405; J2704; J3010; J7120; L8000

== ENCOUNTER 2024-02-19 11:51 | Outpatient (CLI) | payer MEDICARE, BC, SELFPAY ==
--- NOTE | ~2024-02-19 | MM_ITS ---
EXAMINATION: MM diagnostic den LT w ramya HISTORY: Prior right mastectomy TECHNIQUE: 3-D tomosynthesis images of the left breast were performed and synthetic 2-D images were g enerated. CAD analysis was submitted and interpreted. COMPARISON: 01/02/2023, 04/26/2021, 02/28/2021 BREAST PARENCHYMAL COMPOSITION:Not Dense. There are scattered areas of fibroglandular density. FINDINGS: Parenchymal pattern of the left breast is unchanged. No suspicious mass lesion or distortio n seen. No suspicious microcalcification. No significant interval change. IMPRESSION: No mammographic evidence for malignancy. BI-RADS Category 1: Negative Reviewed, dictated and finalized at location .
== END 2024-02-19 11:52 | disposition home or self-care (01) ==
LOC: ANHIMG 11:53
PROVIDERS: PCP Family Medicine; Visit Provider Surgery
DX: D05.11 Intraductal carcinoma in situ of right breast (principal); N64.52 Nipple discharge
CPT/HCPCS: 77061; 77065; G0279

== ENCOUNTER 2024-04-05 14:59 | Observation (INO) | payer MEDICARE, BC, SELFPAY ==
--- NOTE | ~2024-04-05 | CT_ITS ---
EXAMINATION: CT abdomen pelvis w con DATE: 04/05/2024 17:22 INDICATION: Right upper quadrant abdominal pain, nausea, diarrhea TECHNIQUE: Computed tomography (CT) of the abdomen and pelvis was performed with 100 CC Omnipaque 350 intravenous contrast. Automated exposure control and iterative reconstruction technique were employe d. Exam dose: 685.38 mGy-cm total exam DLP. COMPARISON: 04/05/2024 Limited abdominal ultrasound examination CT abdomen FINDINGS: The lung bases are clear of infiltrate or consolidation. Normal heart size. No pericardial or pleural effusion. Multiple scattered hepatic cysts, measuring up to 18 mm. The liver, gallbladder, bile ducts and spleen are unremarkable. There is a paucity 14 x 20 mm hypoattenuating mass of the pancreatic head with attenuation of approxi mately 10.5 Hounsfield units, new since 11/21/2012. Different diagnosis includes pancreatic pseudocyst versus cystic pancreatic neoplasm. Consider MR pancreas examination for further evaluation. No pancreatic duct dilatation is evident. There is a chronic small calcification of the pancreatic tail. The adrenal glands appear normal. There is a lower pole cyst of each kidney, measuring approximately 11.7 mm on the right and 36 mm on the left. A few additional small cysts of the kidneys are suggested. No urinary tract calculus or hydroureteronephrosis. The urinary bladder is unremarkable. Status post hysterectomy. There is atherosclerotic calcification but normal caliber of the abdominal aorta. No intraperitoneal or retroperitoneal or pelvic mass lesion or adenopathy or ascites is noted. Prominent amount of fecal material in the rectosigmoid area No bowel obstruction or intraperitoneal free air. Degenerative changes of the thoracic and lumbar spine including prominent degenerative change at the facet joints in the lower lumbar spine with associated grade 1 anterolisthesis at L4-5, in addition t o severe degenerative disc disease at L4-5. IMPRESSION: Hepatic and renal cysts 14 x 20 mm hypoattenuating mass in the pancreatic head with attenuation of 10.5 Hounsfield units; dif ferential diagnosis includes pancreatic pseudocyst, cystic pancreatic neoplasm. Consider MR pancreati c examination Status post hysterectomy Reviewed, dictated and finalized at [facility]. Reviewed, dictated and finalized at [facility]. IMPRESSION: Hepatic and renal cysts 14 x 20 mm hypoattenuating mass in the pancreatic head with attenuation of 10.5 Hounsfield units; differential diagnosis includes pancreatic pseudocyst, cysti c pancreatic neoplasm. Consider MR pancreatic examination Status post hysterectomy
--- NOTE | ~2024-04-05 | MR_ITS ---
EXAMINATION: MR MRCP wo/w con/w 3D wo ind DATE: 04/06/2024 13:24 INDICATION: Pancreatic cystic lesion. TECHNIQUE: Magnetic resonance imaging (MRI) of the abdomen was performed without and with 14 mL Multi yamilex intravenous contrast. Sequences included coronal T2-weighted SS-FSE, coronal T2-weighted FS SS- FSE, coronal T2-weighted FS FIESTA, axial T2-weighted FS FIESTA, axial T2-weighted FIESTA, sagittal T 2-weighted SS-FSE, axial T1-weighted dual-echo FSPGR, axial T2-weighted SS-FSE, axial T1-weighted LAV A, axial T2-weighted STIR FSE. Thick-slab T2-weighted FRFSE-XL images were obtained for magnetic reso nance cholangiopancreatography (MRCP). Rotating maximum intensity projection 3-D reconstructions of t he volumetric data were created by the technologist. Postcontrast sequences included a time course of axial T1-weighted LAVA. COMPARISON: CT dated 04/06/2024 and 11/21/2012 FINDINGS: ABDOMEN MRI: Postoperative change of prior right mastectomy. Mild cardiomegaly. No pericardial or pleural effusion . There are a few T2 hyperintense nonenhancing hepatic cysts the largest measuring 1.4 cm. Gallbladde r is normal. 2.4 cm T2 hyperintense nonenhancing cystic lesion at the head of the pancreas with no ev ident solid soft tissue component. The cystic lesion appears contiguous with the normal main pancreat ic duct. Pancreas is otherwise unremarkable. Spleen and bilateral adrenal glands are normal. Bilatera l simple appearing T2 hyperintense nonenhancing renal cysts, the largest on the left measuring 3.6 cm . Visualized portions of bowels are unremarkable. No pathologically enlarged abdominal lymphadenopath y. Chronic mild likely physiologic anterior wedging at T11 and T12. Moderate lumbar spondylosis with mild grade 1 spondylolisthesis at multiple levels. ABDOMEN MRCP: The common bile duct measures up to 6 mm which is normal for age and which tapers distally with no ev ident stricture or intraluminal filling defects to suggest choledocholithiasis. Normal intrahepatic b iliary tree. IMPRESSION: 1. 2.4 cm low risk cystic lesion at the head of the pancreas which appears contiguous with the main p ancreatic duct and without internal septations or evident solid soft tissue component. The differenti al diagnosis includes pseudocyst and intraductal papillary mucinous neoplasm (IPMN). Correlate for hi story of pancreatitis. Recommend 2 and 4 year follow-up pre and postcontrast MRI only if patient woul d be a surgical candidate at the time of imaging. Reviewed, dictated and finalized at location [facility]. IMPRESSION: 1. 2.4 cm low risk cystic lesion at the head of the pancreas which appears cont iguous with the main pancreatic duct and without internal septations or evident solid soft tissue component. The differential diagnosis includes pseudocyst an d intraductal papillary mucinous neoplasm (IPMN). Correlate for history of panc reatitis. Recommend 2 and 4 year follow-up pre and postcontrast MRI only if pat ient would be a surgical candidate at the time of imaging.
--- NOTE | ~2024-04-05 | US_ITS ---
US abdomen limited DATE: 04/05/2024 16:46 INDICATION: Right upper quadrant abdominal pain TECHNIQUE: Real-time imaging of the liver, pancreas, gallbladder COMPARISON: 04/05/2024 CT abdomen pelvis FINDINGS: Hepatic cysts. Normal hepatopedal portal venous flow direction. The pancreas is not well demonstrated sonographically in appearance from overlying bowel structures. No gallstones or gallbladder wall thickening or pericholecystic fluid collection. Negative sonographi c Winchester's sign. The common bile duct measures 1.6 mm, normal. IMPRESSION: Hepatic cysts Reviewed, dictated and finalized at [facility]. Reviewed, dictated and finalized at [facility]. IMPRESSION: Hepatic cysts
[2024-04-05 15:12] VITALS: BP 150/60; PULSE 89; RESP 17; TEMP 36.1; O2SAT 99
--- NOTE | 2024-04-05 16:28 | ECG_ITS ---
Test Date: 2024-04-05 17:21:03 Measurements Intervals [place] Rate: 78 P: 61 ID: [id number] QRS: -64 QRSD: 146 T: 71 QT: 425 QTc: 486 Interpretive Statements SINUS RHYTHM MARKED LEFT AXIS DEVIATION [QRS AXIS < -30] LEFT BUNDLE BRANCH BLOCK [120+ ms QRS DURATION, 80+ ms Q/S IN V1/V2, 85+ ms R IN I/aVL/V5/V6] ABNORMAL ECG No previous ECG available for comparison Electronically Signed On 04-06-2024 10:55:15 CDT by Henrique Manzano M.D.
[2024-04-05 17:09] LABS: Estimated CRCL calculation 23 ml/min; Estimated Glomerular Filt Rate 35
[2024-04-05 17:24] VITALS: BP 153/61; PULSE 93; RESP 18; TEMP 36.6; O2SAT 100
[2024-04-05] MEDS: ONDANSETRON INJ 4 MG/2 ML VIAL IV PUSH (17:30)
[2024-04-05] MEDS: MORPHINE SULFATE (*CRX) 2 MG/ML INJ IV PUSH (17:30)
[2024-04-05] MEDS: SODIUM CHLORIDE 0.9% IV 1,000 ML 999 ML IV CONT (17:32)
[2024-04-05 17:33] LABS: Basophils Absolute Auto 0.1 K/mm3 (0.0-0.1); Basophils Percent Auto 0.5 % (0.2-1.2); Eosinophils Absolute Auto 0.1 K/mm3 (0-0.3); Eosinophils Percent Auto 0.4 % (0-4.4); Hematocrit 33.4 % (37.0-47.0); Hemoglobin 10.9 g/dL (12.0-15.0); Immature Granulocyte Absolute 0.02 K/mm3 (0.00-0.031); Immature Granulocyte Percent A 0.2 % (0-0.5); Lymphocytes Absolute Auto 4.84 K/mm3 (0.9-3.2); Mean Corpuscular HGB Conc 32.6 g/dl (32-36); Mean Corpuscular Hemoglobin 31.7 pg (26-34); Mean Corpuscular Volume 97.1 fl (80-100); Mean Platelet Volume 11.7 fl (7.4-10.4); Monocytes Absolute Auto 0.9 K/mm3 (0.1-0.6); Monocytes Percent Auto 7.3 % (2.6-8.5); Neutrophils Absolute Auto 6.5 K/mm3 (1.3-6.7); Neutrophils Percent Auto 52.6 % (45.5-73.1); Platelet Count Result 218 k/mm3 (150-375); Red Blood Count 3.44 M/mm3 (4.2-5.4); Red Cell Distribution Width 11.9 % (11.5-14.5); White Blood Count 12.4 K/mm3 (4.5-10.0)
[2024-04-05 17:36] LABS: Lactic Acid Reflex 1.6 mmol/L (0.7-2.0)
[2024-04-05 17:37] LABS: Alanine Aminotransferase 12 U/L (6-35); Albumin Level 4.1 g/dL (3.5-5.1); Alkaline Phosphatase 61 U/L (38-126); Anion Gap 8 mmol/L (4-12); Aspartate Amino Transferase 23 U/L (14-36); Bilirubin,Total 0.2 mg/dL (0.2-1.3); Blood Urea Nitrogen 28 mg/dL (7-17); Carbon Dioxide 25 mmol/L (22-30); Chloride 107 mmol/L (98-107); Estimated CRCL calculation 23 ml/min; Estimated Glomerular Filt Rate 35; Glucose 147 mg/dL (65-110); Lipase 111 U/L (23-300); Potassium 3.9 mmol/L (3.4-5.0); Sodium 140 mmol/L (137-145)
[2024-04-05 17:49] LABS: Troponin I < 0.012 ng/mL (0.000-0.034)
[2024-04-05 18:16] LABS: Add Urine Microscopic? YES; Appearance Urine Clear (Clear); Bacteria Urine 1+ /hpf; Bilirubin Urine Negative (Negative); Blood Urine Negative (Negative); Color Urine Yellow (Yellow); Glucose Urine UA Negative (Negative); Ketones Urine Negative (Negative); Leukocyte Esterase Ur Negative LEU/UL (Negative); Need Manual Microscopic Reviewed; Nitrate Urine Negative (Negative); Protein Urine Trace mg/dL (Negative); RBC Urine 0-2 /hpf (0-2); Specific Grav Ur 1.021 (1.001-1.035); Squamous Epithelial Cell Urine Occasional /hpf (Few); WBC Urine 0-5 /hpf (0-3)
--- NOTE | 2024-04-05 18:25 | ED.GENADULT ---
HPI - General Adult General Chief complaint: Abdominal Pain Stated complaint: RUQ pain, incontinent at latter-day Time Seen by Provider: 04/05/24 16:27 History of Present Illness HPI narrative: Patient is a 79-year-old female who presents emergency department with chief complaint of abdominal pain. Patient reports had decreased appetite over the last several days and reports been having pain in the epigastrium and right upper quadrant. The patient reports he ate some tacos last night reports that her symptoms are worse. The patient denies fever reports that she still feels uncomfortable and did also reports some a loose stools. Related Data Home Medications Medication Instructions Recorded Confirmed aspirin 81 mg chewable tablet 81 mg PO DAILY 09/13/19 12/26/23 cholecalciferol (vitamin D3) 125 5,000 unit PO DAILY 09/13/19 12/26/23 mcg (5,000 unit) tablet (Vitamin D3) Allergies Allergy/AdvReac Type Severity Reaction Status Date / Time Penicillins Allergy Intermediate Swelling Verified 04/05/24 15:00 of Lip/Tongue/Throat hydrocodone [From Vicodin] AdvReac Intermediate Nausea and Verified 04/05/24 15:00 Vomiting Review of Systems Review of Systems: A 10 system review of systems was completed on the patient and is negative except for what is stated in the HPI. Nursing and ancillary documentation was reviewed. [facility] Past Medical History Medical History Abnormal magnetic resonance imaging of right breast Acute pain after mastectomy Anemia Arthritis Bloody discharge from right nipple Breast cancer, right Hyperlipidemia Hypertension Normal colonoscopy (~2014) Osteopenia Pathological nipple discharge Pleurisy Right knee DJD Shingles Type 2 diabetes mellitus Uterine cancer Vitamin B12 deficiency Surgical History Surgical History H/O local excision of skin lesion finger History of hand surgery Right trigger finger release and tendon surgery. Status post appendectomy Status post breast biopsy With benign histology. Status post cataract extraction Status post dilation and curettage Status post hysterectomy Family History Family History Sibling Diabetes mellitus Breast cancer Sudden Father Hypertension Cerebrovascular accident Mother Heart disease Hypertension Social History Social History Social History: The patient lives in her own home in [place]. She has 7 children, whom she designates as her surrogate decision makers. In addition to her 7 children, she has 21 grandchildren, 25 great grandchildren, and 5 great great grandchildren. She wishes to be a full code. 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 She denies alcohol, tobacco, and drug use. Smoking status: Never smoker Second hand tobacco smoke exposure: No Alcohol intake: never Alcohol use details: rare Substance use: never Substance use type: does not use Do You Feel Safe in your Home?: Yes Lack of Transportation: No Lack of Food: Never True Current Housing: I Have Housing Concerned About Future Housing: No Difficulty Paying Gas/Electric Bills: No Difficulty Paying for Meds: No Currently Unemployed: No Education: High School Diploma/GED Difficulty w/ Childcare or Family Care: No Living arrangements: with family Additional living arrangements comments: LIVES WITH SON KELLI DANIEL Occupation/Education: retired Gender identity (if verbalized by the patient): Female Spiritual care concerns: No Agree to blood products: Yes Exam Narrative: GENERAL: Well-appearing, well-nourished, and in no acute distress. HEAD: Normocephalic, atraumatic. EYES: PERRLA and EOMI. ENT: Nares clear, no rh
[2024-04-05 18:30] VITALS: BP 167/74; PULSE 85; RESP 18; TEMP 36.6; O2SAT 98
--- NOTE | 2024-04-05 18:37 | PC.NURSE ---
Pts Clinical Microbiologist Carolyne Young notified of POC to transfer pt back to [facility] with RX for spams & pt to follow up with surgeon at [facility]. Carolyne voices understanding & is agreeable. RN called [facility] spoke with June who states nurse unavailable, RN left message with contact number to return call. RN verified facility address with June
[2024-04-05 18:51] VITALS: BP 167/74; PULSE 80; RESP 18; TEMP 36.6; O2SAT 94
--- NOTE | 2024-04-05 19:46 | ADMGEN ---
This patient, Génesis Chan, was admitted to [facility] Surg Room 327-01. Patient/family oriented to hospital policies and general routines including ID bracelet, bed and alarms, visiting hours, pain management, procedures, bathroom and other care routines, personal items, smoking policy, room service/diet, and visiting hours. Information on how to activate the Rapid Response Team has been discussed. Patient/Family are encouraged to report perceived risks to care and to ask questions if they do not understand what they are told or what they should do.
[2024-04-05 20:00] VITALS: PULSE 80; RESP 18; O2SAT 94
[2024-04-05] MEDS: SODIUM CHLORIDE 0.9% IV 1,000 ML 75 ML IV CONT (20:59)
[2024-04-05 21:00] VITALS: BP 147/59; PULSE 78; RESP 20; TEMP 37.2; O2SAT 100
--- NOTE | 2024-04-05 23:36 | PM.IMHP ---
H&P: HPI History of Present Illness Date/Time: 04/05/24 22:00 Chief Complaint: Abdominal pain. Narrative: This is a very pleasant 79-year-old female with history of breast cancer status post right mastectomy, hypertension, hyperlipidemia, chronic kidney disease, and type 2 diabetes mellitus who presented to the emergency department via private vehicle for evaluation of abdominal pain. The patient provides the following history. She has had intermittent upper abdominal pain the last several weeks which she has difficulties describing. It does not seem to radiate and she sees no pattern as to when it occurs. Specifically she has not noticed that it is better or worse with food. She does not have any nausea or vomiting but her appetite has not been great. She does report increasing stress recently and takes ibuprofen several days a week for knee pain. She has no known history of peptic ulcers and she denies indigestion symptoms. She denies fever, chills, sweats, chest pain, shortness of breath, hematemesis, melena, hematochezia, and dysuria. Weight has been stable. In the ED: Signs were stable on arrival. Labs were significant for WBC count of 8.3, hemoglobin 10.6, sodium 140, potassium 3.9, BUN 28, creatinine 1.70, lipase 111. Abdominal ultrasound showed hepatic cysts. CT of the abdomen and pelvis showed hepatic and renal cysts as well as a 14 x 20 mm hypoattenuating mass in the pancreatic head. She is being admitted in this setting for further workup. Review of Systems Review of Systems: 12 systems were reviewed and are negative except for as per HPI. [facility] Past Medical History Medical History (Updated 04/05/24 @ 23:53 by Deborah Hammer PA-C) Anemia Arthritis Breast cancer, right Chronic kidney disease Hyperlipidemia Hypertension Normal colonoscopy (~2014) Osteopenia Right knee DJD Shingles Type 2 diabetes mellitus Uterine cancer Vitamin B12 deficiency Surgical History Surgical History H/O local excision of skin lesion finger History of hand surgery Right trigger finger release and tendon surgery. Status post appendectomy Status post breast biopsy With benign histology. Status post cataract extraction Status post dilation and curettage Status post hysterectomy Family History Family History Sibling Diabetes mellitus Breast cancer Sudden Father Hypertension Cerebrovascular accident Mother Heart disease Hypertension Social History Social History (Updated 04/05/24 @ 23:38 by Deborah Hammer PA-C) Social History: The patient lives in her own home in [place]. She has 7 children, whom she designates as her surrogate decision makers. In addition to her 7 children, she has 21 grandchildren, 25 great grandchildren, and 5 great great grandchildren. She wishes to be a full code. 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 She denies alcohol, tobacco, and drug use. Smoking status: Never smoker Second hand tobacco smoke exposure: No Alcohol intake: never Alcohol use details: rare Substance use: never Substance use type: does not use Do You Feel Safe in your Home?: Yes Lack of Transportation: No Lack of Food: Never True Current Housing: I Have Housing Concerned About Future Housing: No Difficulty Paying Gas/Electric Bills: No Difficulty Paying for Meds: No Currently Unemployed: No Education: High School Diploma/GED Difficulty w/ Childcare or Family Care: No Living arrangements: with family Occupation/Education: retired Spiritual care concerns: No Agree to blood products: Yes Meds Home Medications and Allergies Home Medications Medication Instructions Recorded Confirmed Type aspirin 81 mg chewable tablet 81 mg PO DAILY 09/13/19 04/05/24 History cholecalciferol (vitamin D3) 125 5,000 unit PO DAILY 09/13
[2024-04-06 04:45] VITALS: BP 130/48; PULSE 59; RESP 20; TEMP 36.6; O2SAT 100
--- NOTE | 2024-04-06 08:04 | P.PNIM_ITS ---
Progress Note: A&P Assessment and Plan (1) Mass of head of pancreas: Code(s): K86.89 - Other specified diseases of pancreas Status: Acute Assessment and Plan: Pancreatic mass * CT abdomen:14 x 20 mm hypoattenuating mass in the pancreatic head with attenuation of 10.5 Hounsfield units; differential diagnosis includes pancreatic pseudocyst, cystic pancreatic neoplasm. Consider MR pancreatic examination Status post hysterectomy * HX of reset mastectomy for breast cancer * MRI scheduled for 04/06 * GI consulted for further recs (2) Abdominal pain: Code(s): R10.9 - Unspecified abdominal pain Status: Acute Assessment and Plan: ABD Pain * Likely secondary to mass pancreatic head * Labs reviewed unremarkable (3) Acute on chronic kidney failure: Code(s): N17.9 - Acute kidney failure, unspecified; N18.9 - Chronic kidney disease, unspecified Status: Acute Assessment and Plan: Acute on chronic renal failure * 1.70 POA * F/U renal function pending * Gentle IV hydration. * Avoid nephrotoxic drugs. * Monitor antihypertensive drug therapy. * Avoid NSAIDs. * Routine CMP monitoring GFR. * Monitor electrolytes especially potassium. * Antibiotic doses depending on creatinine clearance. * Pharmacy does medications. (4) Hypertension: Qualifiers: Hypertension type: essential hypertension Qualified Code(s): I10 - Essential (primary) hypertension Code(s): I10 - Essential (primary) hypertension Status: Acute Assessment and Plan: HTN * Stable * Resumed home medications * BP per unit protocol (5) Hyperlipidemia: Qualifiers: Hyperlipidemia type: unspecified Qualified Code(s): E78.5 - Hyperlipidemia, unspecified Code(s): E78.5 - Hyperlipidemia, unspecified Status: Acute Assessment and Plan: HLD * Resumed statin (6) Type 2 diabetes mellitus: Qualifiers: Diabetes mellitus complication status: without complication Diabetes mellitus intermediate insulin use: without dedicated intermodal truck driver use Qualified Code(s): E11.9 - Type 2 diabetes mellitus without complications Code(s): E11.9 - Type 2 diabetes mellitus without complications Status: Acute Assessment and Plan: Diabetes * Accu-Cheks a.c. HS * sliding scale insulin * hold oral diabetic medications/RUPERT and contrast will need to hold at least 48- 72 hours * resume patient's home long-acting * Diabetic diet * consult to dietitian * Optimize Ho inhibitors and statins. * Watch for hypoglycemia/hypoglycemic protocol ordered Plan Code status: Full code per patient DVT prophylaxis: SCD's Stress ulcer prophylaxis: Protonix 40 daily PT/OT notes: Ambulatory Disposition: Time Spent With Patient Time with patient: 15 - 25 minutes Subjective Date/time seen: 04/06/24 08:04 Interval history: Admission: Medical Chart This is a very pleasant 79-year-old female with history of breast cancer status post right mastectomy, hypertension, hyperlipidemia, chronic kidney disease, and type 2 diabetes mellitus who presented to the emergency department via private vehicle for evaluation of abdominal pain. The patient provides the following history. She has had intermittent upper abdominal pain which she has difficulties describing. It does not seem to radiate and she sees no pattern as to when it occur
--- NOTE | 2024-04-06 08:04 | PM.IMPN ---
Progress Note: A&P Assessment and Plan (1) Mass of head of pancreas: Code(s): K86.89 - Other specified diseases of pancreas Status: Acute Assessment and Plan: Pancreatic mass CT abdomen:14 x 20 mm hypoattenuating mass in the pancreatic head with attenuation of 10.5 Hounsfield units; differential diagnosis includes pancreatic pseudocyst, cystic pancreatic neoplasm. Consider MR pancreatic examination Status post hysterectomy HX of reset mastectomy for breast cancer MRI scheduled for 04/06 GI consulted for further recs (2) Abdominal pain: Code(s): R10.9 - Unspecified abdominal pain Status: Acute Assessment and Plan: ABD Pain Likely secondary to mass pancreatic head Labs reviewed unremarkable (3) Acute on chronic kidney failure: Code(s): N17.9 - Acute kidney failure, unspecified; N18.9 - Chronic kidney disease, unspecified Status: Acute Assessment and Plan: Acute on chronic renal failure 1.70 POA F/U renal function pending Gentle IV hydration. Avoid nephrotoxic drugs. Monitor antihypertensive drug therapy. Avoid NSAIDs. Routine CMP monitoring GFR. Monitor electrolytes especially potassium. Antibiotic doses depending on creatinine clearance. Pharmacy does medications. (4) Hypertension: Qualifiers: Hypertension type: essential hypertension Qualified Code(s): I10 - Essential (primary) hypertension Code(s): I10 - Essential (primary) hypertension Status: Acute Assessment and Plan: HTN Stable Resumed home medications BP per unit protocol (5) Hyperlipidemia: Qualifiers: Hyperlipidemia type: unspecified Qualified Code(s): E78.5 - Hyperlipidemia, unspecified Code(s): E78.5 - Hyperlipidemia, unspecified Status: Acute Assessment and Plan: HLD Resumed statin (6) Type 2 diabetes mellitus: Qualifiers: Diabetes mellitus complication status: without complication Diabetes mellitus terminal worker insulin use: without residential use Qualified Code(s): E11.9 - Type 2 diabetes mellitus without complications Code(s): E11.9 - Type 2 diabetes mellitus without complications Status: Acute Assessment and Plan: Diabetes Accu-Cheks a.c. HS sliding scale insulin hold oral diabetic medications/RUPERT and contrast will need to hold at least 48-72 hours resume patient's home long-acting Diabetic diet consult to dietitian Optimize Ho inhibitors and statins. Watch for hypoglycemia/hypoglycemic protocol ordered Plan Code status: Full code per patient DVT prophylaxis: SCD's Stress ulcer prophylaxis: Protonix 40 daily PT/OT notes: Ambulatory Disposition: Time Spent With Patient Time with patient: 15 - 25 minutes Subjective Date/time seen: 04/06/24 08:04 Interval history: Admission: Medical Chart This is a very pleasant 79-year-old female with history of breast cancer status post right mastectomy, hypertension, hyperlipidemia, chronic kidney disease, and type 2 diabetes mellitus who presented to the emergency department via private vehicle for evaluation of abdominal pain. The patient provides the following history. She has had intermittent upper abdominal pain which she has difficulties describing. It does not seem to radiate and she sees no pattern as to when it occurs. Specifically she has not noticed that it is better or worse with food. She does not have any nausea or vomiting but her appetite has not been great. She does report increasing stress recently and takes ibuprofen several days a week for knee pain. She has no known history of peptic ulcers and she denies indigestion symptoms. She denies fever, chills, sweats, chest pain, shortness of breath, hematemesis, melena, hematochezia, and dysuria. Weight has been stable. 04/06/2024: Assumed Care Review of Systems Review of Systems: 12 syst
[2024-04-06] MEDS: PANTOPRAZOLE SODIUM IV 40 MG VIAL IV PUSH (08:32)
[2024-04-06] MEDS: SODIUM CHLORIDE 0.9% IV 1,000 ML 75 ML IV CONT (08:33)
[2024-04-06] MEDS: MORPHINE SULFATE (*CRX) 2 MG/ML INJ IV PUSH (08:33)
[2024-04-06 08:49] VITALS: O2SAT 98
[2024-04-06 09:45] LABS: Hematocrit 32.8 % (37.0-47.0); Hemoglobin 10.6 g/dL (12.0-15.0); Mean Corpuscular HGB Conc 32.3 g/dl (32-36); Mean Corpuscular Hemoglobin 31.6 pg (26-34); Mean Corpuscular Volume 97.9 fl (80-100); Platelet Count Result 196 k/mm3 (150-375); Red Blood Count 3.35 M/mm3 (4.2-5.4); Red Cell Distribution Width 11.9 % (11.5-14.5); White Blood Count 8.3 K/mm3 (4.5-10.0)
[2024-04-06 11:18] LABS: Alanine Aminotransferase 11 U/L (6-35); Albumin Level 3.6 g/dL (3.5-5.1); Alkaline Phosphatase 64 U/L (38-126); Anion Gap 8 mmol/L (4-12); Aspartate Amino Transferase 24 U/L (14-36); Bilirubin,Total 0.4 mg/dL (0.2-1.3); Blood Urea Nitrogen 17 mg/dL (7-17); Calcium 8.9 mg/dL (8.4-10.2); Carbon Dioxide 23 mmol/L (22-30); Chloride 111 mmol/L (98-107); Estimated CRCL calculation 36 ml/min; Estimated Glomerular Filt Rate 58; Glucose 119 mg/dL (65-110); Potassium 4.5 mmol/L (3.4-5.0); Sodium 142 mmol/L (137-145)
[2024-04-06] MEDS: TAMOXIFEN CITRATE (*CHEMO) 10 MG TABLET 20 MG PO (13:54)
[2024-04-06] MEDS: LOSARTAN POTASSIUM 100 MG TABLET PO (13:54)
[2024-04-06] MEDS: PRAVASTATIN SODIUM 20 MG TABLET 40 MG BY MOUTH (13:54)
[2024-04-06] MEDS: CHOLECALCIFEROL 5,000 UNITS TABLET 5000 UNITS PO (13:55)
[2024-04-06] MEDS: ASPIRIN 81 MG CHEWABLE TABLET PO (13:55)
[2024-04-06] MEDS: amLODIPine BESYLATE 5 MG TABLET PO (13:55)
--- NOTE | 2024-04-06 15:39 | PM.DS ---
DS: Admitting Diagnosis Discharge Date 04/06/2024 Admitting Diagnosis pancreatic lesion/ABD Pain DS: Discharge Diagnosis Discharge Diagnosis (1) Mass of head of pancreas: Code(s): K86.89 - Other specified diseases of pancreas Status: Acute (2) Abdominal pain: Code(s): R10.9 - Unspecified abdominal pain Status: Acute (3) Acute on chronic kidney failure: Code(s): N17.9 - Acute kidney failure, unspecified; N18.9 - Chronic kidney disease, unspecified Status: Acute (4) Hypertension: Qualifiers: Hypertension type: essential hypertension Qualified Code(s): I10 - Essential (primary) hypertension Code(s): I10 - Essential (primary) hypertension Status: Acute (5) Hyperlipidemia: Qualifiers: Hyperlipidemia type: unspecified Qualified Code(s): E78.5 - Hyperlipidemia, unspecified Code(s): E78.5 - Hyperlipidemia, unspecified Status: Acute (6) Type 2 diabetes mellitus: Qualifiers: Diabetes mellitus complication status: without complication Diabetes mellitus intermediate teacher insulin use: without fci use Qualified Code(s): E11.9 - Type 2 diabetes mellitus without complications Code(s): E11.9 - Type 2 diabetes mellitus without complications Status: Acute Plan The patient presented to the emergency department for evaluation of abdominal pain as detailed in HPI. Labs, imaging, EKG, and all reports were personally reviewed. Etiology is not entirely clear. May be referred pain from right mastectomy site. It does not seem to be related to her gallbladder; no gallstones or gallbladder wall thickening were noted on upper quadrant ultrasound. Incidentally a small pancreatic head mass was noted which I suppose could be the cause of her symptoms. MRI has been ordered. After discussions with the patient her family members, we will consult GI given ongoing abdominal pain. Creatinine is elevated from baseline, probably due to decreased oral intake recently given poor appetite. She will be hydrated overnight with repeat renal function in a.m.. Blood pressures were reviewed and they are stable. Hold metformin as she received contrast. Initiate sliding scale insulin, Accu-Cheks, and hypoglycemic protocol. Her home medications will be reviewed and resumed as appropriate. Findings and treatment plan were discussed with the patient. Questions were solicited and answered to satisfaction. The patient's medical management will be taken over by the hospitalist team in a.m. DS: Summary Hospital Course Reason for hospitalization: pancreatic lesion/ABD Pain Hospital Course: This was a very pleasant 79-year-old female with history of breast cancer status post right mastectomy, hypertension, hyperlipidemia, chronic kidney disease, and type 2 diabetes mellitus who presented to the emergency department via private vehicle for evaluation of abdominal pain. The patient provides the following history. She has had intermittent upper abdominal pain the last several weeks which she has difficulties describing. It does not seem to radiate and she sees no pattern as to when it occurs. Specifically she has not noticed that it is better or worse with food. She does not have any nausea or vomiting but her appetite has not been great. She does report increasing stress recently and takes ibuprofen several days a week for knee pain. She has no known history of peptic ulcers and she denies indigestion symptoms. She denies fever, chills, sweats, chest pain, shortness of breath, hematemesis, melena, hematochezia, and dysuria. Weight has been stable. In the ED: Signs were stable on arrival. Labs were significant for WBC count of 8.3, hemoglobin 10.6, sodium 140, potassium 3.9, BUN 28, creatinine 1.70, lipase 111. Abdominal ultrasound showed hepatic cysts. CT of the abdomen and pelvis showed hepatic and renal cysts as well as a 14 x 20 mm hypoattenuating mass in the pancreatic head. She is bein
== END 2024-04-06 16:25 | disposition home or self-care (01) ==
LOC: ANHED 18:28 → ANH3MEDSUR 18:58
PROVIDERS: Admitting Provider General Practice; Emergency Provider Emergency Medicine; PCP Family Medicine; Visit Provider Nurse Practitioner Family
DX: N17.9 Acute kidney failure, unspecified (principal); K86.2 Cyst of pancreas; Z79.82 Long term (current) use of aspirin; E78.5 Hyperlipidemia, unspecified; Z85.42 Personal history of malignant neoplasm of other parts of uterus; E53.8 Deficiency of other specified B group vitamins; Z85.3 Personal history of malignant neoplasm of breast; N18.9 Chronic kidney disease, unspecified; E11.22 Type 2 diabetes mellitus with diabetic chronic kidney disease; I12.9 Hypertensive chronic kidney disease with stage 1 through stage 4 chronic kidney disease, or unspecified chronic kidney disease
CPT/HCPCS: 36415; 74177; 74183; 76376; 76705; 80053; 81001; 83605; 83690; 84484; 85025; 85027; 93005; 96361; 96374; 96375; 96376; 99285; A9270; A9577; G0378; J2270; J2405; J2470; J7030; Q9967

== ENCOUNTER 2024-04-21 14:12 | Outpatient (CLI) | payer MEDICARE, BC, SELFPAY ==
--- NOTE | ~2024-04-21 | MR_ITS ---
EXAMINATION: MR thoracic spine wo con DATE: 04/21/2024 15:17 INDICATION: Radiculopathy, thoracic region. TECHNIQUE: Magnetic resonance imaging (MRI) of the thoracic spine was performed without intravenous c ontrast. COMPARISON: None FINDINGS: There is 8 degrees dextrocurvature of cervical spine. There is mild chronic anterior wedgin g of T5-T8 vertebral bodies and T12 and L1 vertebral bodies. There is mildly decreased disc height at multiple levels. There is moderately decreased disc height at T1-T2, T2-T3, and T5-T6. There is mult ilevel facet joint osteoarthritis, mild at most levels. On the right, there is mild neural foraminal stenosis at T1-T2. At T1-T2, the disc is bulging with mild central canal stenosis. At T2-T3 the disc is bulging with mild central canal stenosis. At T3-T4, the disc is bulging with mild central canal st enosis. At T7-T8, the disc is bulging and mild central canal stenosis. At T8-T9, the disc is bulging with mild central canal stenosis. The discs are bulging at T9-T10 and T10-T11 with mild central canal stenosis. The spinal cord signal intensity is normal. IMPRESSION: 1. Moderate thoracic spondylosis. Reviewed, dictated and finalized at [facility].
== END 2024-04-21 14:13 | disposition home or self-care (01) ==
LOC: MICIMG 14:13
PROVIDERS: PCP Family Medicine; Visit Provider Family Medicine
DX: M47.24 Other spondylosis with radiculopathy, thoracic region (principal)
CPT/HCPCS: 72146

== ENCOUNTER 2024-04-23 08:06 | Outpatient (CLI) | payer MEDICARE, BC, SELFPAY ==
--- NOTE | ~2024-04-23 | CT_ITS ---
Clinical Indication: Chest pain CT Scan of the Chest with Contrast: Technique: Contiguous sections were acquired throughout the chest after intravenous administration of 100 cc of Omnipaque 350. Dose reduction technique was used on this scan by utilizing automated expos ure control and iterative reconstruction technique. The dose-length product (DLP) was 213.07 mGy-cm. Findings: There is no evidence of any significant mediastinal, hilar or axillary lymphadenopathy. There is no f illing defect in the pulmonary arterial tree to suggest pulmonary embolus. There is no evidence of ao rtic dissection or aneurysm. There is no evidence of pleural or pericardial effusion. The lungs are clear. No pulmonary nodules or infiltrates are noted. Images through the upper abdomen reveal no abnormalities. Impression: No evidence of pulmonary embolus, aortic dissection, or aortic aneurysm. Clear lungs. Reviewed, dictated and finalized at [facility]. Impression: No evidence of pulmonary embolus, aortic dissection, or aortic aneurysm. Clear lungs.
[2024-04-23 09:30] LABS: Add Urine Microscopic? YES; Appearance Urine Cloudy (Clear); Bacteria Urine 4+ /hpf; Bilirubin Urine Negative (Negative); Blood Urine Negative (Negative); Color Urine Yellow (Yellow); Glucose Urine UA Negative (Negative); Ketones Urine Negative (Negative); Leukocyte Esterase Ur 2+ LEU/UL (Negative); Nitrate Urine Positive (Negative); Protein Urine 1+ mg/dL (Negative); RBC Urine 0-2 /hpf (0-2); Specific Grav Ur 1.024 (1.001-1.035); Squamous Epithelial Cell Urine Few /hpf (Few); Urobilinogen Urine 0.2 mg/dL (<2.0); WBC Urine 51-100 /hpf (0-3); pH Urine 5.5 (5.0-9.0)
== END 2024-04-23 08:07 | disposition home or self-care (01) ==
PROVIDERS: PCP Family Medicine; Visit Provider Family Medicine
DX: R07.9 Chest pain, unspecified (principal); R79.89 Other specified abnormal findings of blood chemistry; N18.30 Chronic kidney disease, stage 3 unspecified
CPT/HCPCS: 71275; 81001; 87077; 87086; 87088; 87186; Q9967

== ENCOUNTER 2024-06-12 09:31 | Outpatient (CLI) | payer MEDICARE, BC, SELFPAY ==
--- NOTE | ~2024-06-12 | NM_ITS ---
EXAMINATION: NM bryant stress w perfusion DATE: 06/12/2024 11:55 INDICATION: Other forms of dyspnea. TECHNIQUE: Rest images were obtained following intravenous administration of 10.6 mCi Tc99m tetrofosm in (Myoview). The patient was infused intravenously with Lexiscan (regadenoson). Then, 34.6 mCi Tc99m tetrofosmin (Myoview) was administered intravenously, and stress images were obtained. Data was sis nstructed into short axis and horizontal and vertical long axis SPECT images. Gated SPECT images were also obtained. COMPARISON: Chest CT 04/23/2024 FINDINGS: There is no definite reversible or fixed perfusion abnormality to suggest ischemia or infar ction. There is no segmental wall motion abnormality. Left ventricular ejection fraction measures 6 7%. IMPRESSION: 1. No definite ischemia or infarct. 2. Normal left ventricular ejection fraction measuring 67%. Reviewed, dictated and finalized at location [facility].
--- NOTE | 2024-06-12 10:03 | EST_ITS ---
Patient Info Name: Génesis Chan Age: 79 years : 1945 Gender: Female Ht: 64 in Wt: 163 lbs BSA: 1.85 m2 HR: 73 bpm BP: 144 / 65 mmHg Exam Date: 06/12/2024 10:42 AM Exam Location: Echo Lab Patient Status: Outpatient Admit Date: 06/12/2024 Staff Ordering Physician: Elayne Hill MD Attending Provider: Elayne Hill MD Exercise Technologist: [facility] Exercise Physician: Gallo Feliz DO Exam Type: CA stress bryant w NM Study Info A regadenoson stress test was performed. Summary 1. 1. Inconclusive lexiscan stress test for ischemic ST changes by ECG criteria due to baseline LBBB. 2. 2. Stable hemodynamics throughout the test. 3. 3. Nuclear scan to follow and will be reported separately. Please correlate with it. 4. 4. Patient informed of the above results. Protocol: Lexiscan Stress ECG Details Stage: REST Duration (min): 1 min : 2 sec HR (bpm): 72 SBP (mmHg): 144 DBP (mmHg): 65 Stage: REST Duration (min): 7 min : 2 sec HR (bpm): 74 SBP (mmHg): 144 DBP (mmHg): 65 Stage: STAGE 1 Duration (min): 1 min : 0 sec HR (bpm): 85 SBP (mmHg): 144 DBP (mmHg): 65 Stage: RECOVERY Duration (min): 1 min : 0 sec HR (bpm): 89 SBP (mmHg): 144 DBP (mmHg): 65 Stage: RECOVERY Duration (min): 2 min : 0 sec HR (bpm): 87 SBP (mmHg): 144 DBP (mmHg): 65 Stage: RECOVERY Duration (min): 3 min : 0 sec HR (bpm): 84 SBP (mmHg): 127 DBP (mmHg): 53 Stage: RECOVERY Duration (min): 4 min : 0 sec HR (bpm): 85 SBP (mmHg): 127 DBP (mmHg): 53 Stage: RECOVERY Duration (min): 5 min : 0 sec HR (bpm): 83 SBP (mmHg): 119 DBP (mmHg): 52 Stage: RECOVERY Duration (min): 5 min : 2 sec HR (bpm): 83 SBP (mmHg): 119 DBP (mmHg): 52 Rest HR: 74 bpm Peak HR: 91 bpm Rest Sys BP: 144 mmHg Peak Sys BP: 127 mmHg Max Pred HR: 139 bpm % Max Pred HR: 65 % Target HR: 118 bpm Max RPP: 11,557 bpm*mmHg Termination Reason: Completed protocol Cardiac Symptoms: Shortness of breath Total Time: 1 min : 0 sec Rest Briscoe BP: 65 mmHg Peak Briscoe BP: 53 mmHg Total Dose: 0.4 mg Resting ECG Sinus rhythm, LBBB. Stress ECG No ST changes. Arrhythmias None. Report Signatures
== END 2024-06-12 09:32 | disposition home or self-care (01) ==
PROVIDERS: PCP Family Medicine; Visit Provider Family Medicine
DX: R06.09 Other forms of dyspnea (principal); R07.89 Other chest pain
CPT/HCPCS: 78452; 93017; A9502; J2785

== ENCOUNTER 2024-07-12 12:41 | Emergency (ER) | payer MEDICARE, BC, SELFPAY ==
--- NOTE | ~2024-07-12 | CT_ITS ---
EXAMINATION: CT brain wo con DATE: 07/12/2024 13:38 INDICATION: Syncope TECHNIQUE: Computed tomography (CT) of the head was performed without intravenous contrast. Sagittal and coronal reconstructions were performed. The mA was adjusted according to patient size. Iterative reconstruction technique was employed. The dose-length product was 605.33 mGy-cm. COMPARISON: head CT dated 03/07/2021 FINDINGS: No acute intracranial hemorrhage, acute infarction or abnormal extra axial fluid collection. There is moderate scattered white matter hypoattenuation consistent with chronic small vessel ischemic diseas e. Symmetric prominence of the sulci and ventricles consistent with mild to moderate age-appropriate diffuse cerebral volume loss. No mass/mass effect. Unchanged mucous retention cyst in the right sphen oid sinus. Changes of bilateral intraocular lens replacement. The orbits and mastoid air cells are n ormal. Intracranial calcified cerebral atherosclerosis is noted. IMPRESSION: 1. No acute intracranial process. 2. Stable age-related changes including moderate diffuse volume loss and moderate scattered white mat ter hypoattenuation consistent with chronic small vessel ischemic disease. Reviewed, dictated and finalized at location A. CAR WELDER IMPRESSION: 1. No acute intracranial process. 2. Stable age-related changes including moderate diffuse volume loss and modera te scattered white matter hypoattenuation consistent with chronic small vessel ischemic disease.
--- NOTE | ~2024-07-12 | XR_ITS ---
EXAMINATION: XR chest 2V DATE: 07/12/2024 13:30 INDICATION: Syncope TECHNIQUE: PA and lateral views of the chest were obtained. COMPARISON: Chest radiograph dated 10/01/2019 FINDINGS: The lungs are clear with no focal airspace opacities, pulmonary edema, pleural effusion or pneumothor ax. The cardiomediastinal silhouette is normal. Severe upper thoracic and moderate mid to lower thora cic spondylosis with chronic minimal anterior wedging of a few mid and lower thoracic vertebral janet s. IMPRESSION: 1. No acute cardiopulmonary disease. Reviewed, dictated and finalized at location A. M CLERK
--- NOTE | 2024-07-12 12:51 | ECG_ITS ---
Test Date: 2024-07-12 13:00:52 Measurements Intervals [place] Rate: 73 P: 60 MN: 164 QRS: -50 QRSD: 134 T: 70 QT: 435 QTc: 480 Interpretive Statements SINUS RHYTHM LEFT AXIS DEVIATION LEFT BUNDLE BRANCH BLOCK BASELINE ARTIFACT- I, III, AVL, V6 ABNORMAL ECG Compared to ECG 04/05/2024 17:21:03 No significant changes Electronically Signed On 07-12-2024 18:42:28 SATELLITE D[employer] TECHNICIAN by Gallo Feliz D.O.
[2024-07-12 12:53] LABS: Glucose Point of Care 137 mg/dl (65-105)
[2024-07-12 12:56] VITALS: BP 150/87; PULSE 79; RESP 20; TEMP 36.7; O2SAT 100
[2024-07-12 13:00] VITALS: BP 157/56; PULSE 78; RESP 16; O2SAT 100
--- NOTE | 2024-07-12 13:16 | ED.SYNCOPE ---
HPI - Syncope General Chief Complaint: Syncope <Daniel Webster MD - Last Filed: 07/12/24 14:03> Stated Complaint: syncope <Daniel Webster MD - Last Filed: 07/12/24 14:03> Time Seen by Provider: 07/12/24 12:55 <Daniel Webster MD - Last Filed: 07/12/24 14:03> History of Present Illness HPI narrative: Patient is an 79-year-old female who presents ER after having syncope at [facility]. She was feeling lightheaded and seeing bright lights when she lost consciousness. Unsure how long she was out for. Reports she did not eat or drink this morning. No fevers or chills or sweats. No urinary frequency urgency or dysuria. No chest pain or palpitations. <Daniel Webster MD - Last Filed: 07/12/24 14:03> Related Data Home Medications: Home Medications Medication Instructions Recorded Confirmed aspirin 81 mg chewable tablet 81 mg PO DAILY 09/13/19 06/09/24 cholecalciferol (vitamin D3) 125 5,000 unit PO DAILY 09/13/19 06/09/24 mcg (5,000 unit) tablet (Vitamin D3) amlodipine 5 mg tablet 5 mg PO DAILY 04/05/24 06/09/24 pravastatin 40 mg tablet 40 mg DAILY 04/05/24 06/09/24 tamoxifen 20 mg tablet 20 mg PO DAILY 04/05/24 06/09/24 <Daniel Webster MD - Last Filed: 07/12/24 14:03> Allergies/Adverse Reactions: Allergies Allergy/AdvReac Type Severity Reaction Status Date / Time Penicillins Allergy Intermediate Swelling Verified 07/12/24 13:02 of Lip/Tongue/Throat hydrocodone [From Vicodin] AdvReac Intermediate Nausea and Verified 07/12/24 13:02 Vomiting <Daniel Webster MD - Last Filed: 07/12/24 14:03> Review of Systems Review of Systems: All systems reviewed & are unremarkable except as noted in HPI and below <Daniel Webster MD - Last Filed: 07/12/24 14:03> Constitutional: Constitutional: Reports no additional constitutional complaints <Daniel Webster MD - Last Filed: 07/12/24 14:03> ENT: Reports system reviewed and no additional complaints, except as documented <Daniel Webster MD - Last Filed: 07/12/24 14:03> Cardiovascular: Cardiovascular: Reports no additional cardiovascular complaints <Daniel Webster MD - Last Filed: 07/12/24 14:03> Respiratory: Respiratory: Reports no additional respiratory complaints <Daniel Webster MD - Last Filed: 07/12/24 14:03> Neurologic: Reports syncope, Denies headache(s), Denies focal weakness and Denies numbness <Daniel Webster MD - Last Filed: 07/12/24 14:03> [facility] Past Medical History Medical History: Medical History Anemia Arthritis Breast cancer, right Chronic kidney disease Hyperlipidemia Hypertension Normal colonoscopy (~2014) Osteopenia Right knee DJD Shingles Type 2 diabetes mellitus Uterine cancer Vitamin B12 deficiency <Daniel Webster MD - Last Filed: 07/12/24 14:03> Surgical History Surgical History: Surgical History H/O local excision of skin lesion finger History of hand surgery Right trigger finger release and tendon surgery. Status post appendectomy Status post breast biopsy With benign histology. Status post cataract extraction Status post dilation and curettage Status post hysterectomy <Daniel Webster MD - Last Filed: 07/12/24 14:03> Family History Family History: Family History Sibling Diabetes mellitus Breast cancer Sudden Father Hypertension Cerebrovascular accident Mother Heart disease Hypertension <Daniel Webster MD - Last Filed: 07/12/24 14:03> Social History Social History: Social History Social History: The patient lives in her own home in [place]. She has 7 children, whom she designates as her surrogate decision makers. In addition to her 7 children, she has 21 grandchildren, 25 great grandchildren, and 5 great great grandchildren. She wishes to be a full code. She is retired and used to work on the [employer] at [employer]. She denies alcohol, tobacco, and drug use. Smoking status: Never smoker Second hand tobacco smoke exposure: No Alcohol intake: never Alcohol use details: rare Substance use: never Substance use type: does not use Do You Feel Safe in your Home?: Yes Lack of Transportation: No Lack of Food: Never True Current Housing: I Have Housing Concerned About Future Housing: No Difficulty Paying Gas/Electric Bills: No Difficulty Paying for Meds: No Currently Unemployed: No Education: High School Diploma/GED Difficulty w/ Childcare or Family Care: No Living arrangements: with family Occupation/Education: retired Spiritual care concerns: No Agree to blood products: Yes <Daniel Webster MD - Last Filed: 07/12/24 14:03> Course Course Emergency Course: LEAH to Dr. Milan. <Daniel Webster MD - Last Filed: 07/12/24 14:03> Reevaluation(s) Reevaluation #1: I resume care of this patient at shift change with pending disposition. Patient is getting hydrated. I reexamined the patient she is feeling much better. She feels comfortable going home. I reviewed lab work with the patient and son. <Meliton Milan MD - Last Filed: 07/12/24 16:11> Vital Signs Vital signs: Vital Signs Temperature 36.7 C 07/12/24 12:56 Pulse Rate 79 07/12/24 12:56 Respiratory Rate 20 07/12/24 12:56 Blood Pressure 150/87 H 07/12/24 12:56 Pulse Oximetry 100 07/12/24 12:56 Oxygen Delivery Room Air 07/12/24 12:56 Temperature 36.7 C 07/12/24 12:56 Pulse Rate 76 07/12/24 14:30 Respiratory Rate 14 07/12/24 14:30 Blood Pressure 140/52 L 07/12/24 14:30 Pulse Oximetry 100 07/12/24 14:30 Oxygen Delivery Room Air 07/12/24 12:56 <Daniel Webster MD - Last Filed: 07/12/24 14:03> Vital Signs Temperature 36.7 C 07/12/24 12:56 Pulse Rate 79 07/12/24 12:56 Respiratory Rate 20 07/12/24 12:56 Blood Pressure 150/87 H 07/12/24 12:56 Pulse Oximetry 100 07/12/24 12:56 Oxygen Delivery Room Air 07/12/24 12:56 Temperature 36.7 C 07/12/24 12:56 Pulse Rate 76 07/12/24 14:30 Respiratory Rate 14 07/12/24 14:30 Blood Pressure 140/52 L 07/12/24 14:30 Pulse Oximetry 100 07/12/24 14:30 Oxygen Delivery Room Air 07/12/24 12:56 <Meliton Milan MD - Last Filed: 07/12/24 16:11> MDM - Syncope Lab Data Result diagrams: 07/12/24 13:11 07/12/24 13:11 <Daniel Webster MD - Last Filed: 07/12/24 14:03> Labs: Lab Results 07/12/24 07/12/24 07/12/24 Range/Units 12:51 13:11 13:26 WBC 14.1 H (4.5-10.0) K/mm3 RBC 3.59 L (4.2-5.4) M/mm3 Hgb 11.3 L (12.0-15.0) g/dL Hct 34.3 L (37.0-47.0) % MCV 95.5 (80-100) fl MCH 31.5 (26-34) pg MCHC 32.9 (32-36) g/dl RDW 11.7 (11.5-14.5) % Plt Count 222 (150-375) k/mm3 MPV 12.3 H (7.4-10.4) fl Immature Gran % (Auto) 0.3 (0-0.5) % Neut % (Auto) 68.6 (45.5-73.1) % Lymph % (Auto) 24.0 (18.3-44.2) % [place] % (Auto) 6.3 (2.6-8.5) % Eos % (Auto) 0.2 (0-4.4) % Baso % (Auto) 0.6 (0.2-1.2) % Lymph # (Auto) 3.38 H (0.9-3.2) K/mm3 [place] # (Auto) 0.9 H (0.1-0.6) K/mm3 Eos # (Auto) 0.0 (0-0.3) K/mm3 Baso # (Auto) 0.1 (0.0-0.1) K/mm3 Abs Immat Gran (auto) 0.04 H (0.00-0.031) K/mm3 Absolute Neuts (auto) 9.7 H (1.3-6.7) K/mm3 Absolute Nucleated RBC 0.000 (0.0-0.012) K/mm3 Nucleated RBC % 0.0 (0.0-0.2) % Sodium 138 (137-145) mmol/L Potassium 4.8 (3.4-5.0) mmol/L Chloride 108 H (98-107) mmol/L Carbon Dioxide 20 L (22-30) mmol/L Anion Gap 10 (4-12) mmol/L BUN 34 H D (7-17) mg/dL Creatinine 1.50 H (0.7-1.0) mg/dL Estim Creat Clear Calc Not Reportable Estimated GFR 40 L (59 - ) Glucose 133 H (65-110) mg/dL POC Capillary Glucose 137 H (65-105) mg/dl Calcium 9.6 (8.4-10.2) mg/dL Total Bilirubin 0.6 (0.2-1.3) mg/dL AST 21 (14-36) U/L ALT 12 (6-35) U/L Alkaline Phosphatase 67 (38-126) U/L Total Protein 8.0 (6.3-8.2) g/dL Albumin 4.2 (3.5-5.1) g/dL Urine Color Yellow (Yellow) Urine Appearance Cloudy H (Clear) Urine pH 5.5 (5.0-9.0) Ur Specific [place] 1.017 (1.001-1.035) Urine Protein 1+ H (Negative) mg/dL Urine Glucose (UA) Negative (Negative) mg/dL Urine Ketones Trace H (Negative) mg/dL Ur Blood (Man) Negative (Negative) Urine Nitrate Negative (Negative) Urine Bilirubin Negative (Negative) Urine Urobilinogen 1.0 (<2.0) mg/dL Add Ur Microanalysis Reviewed Leukocyte Esterase Rfl Negative (Negative) JHOAN/UL Urine RBC 0-2 (0-2) /hpf Urine WBC 0-5 (0-3) /hpf Ur Squamous Epith Cells Moderate (Few) /hpf Urine Bacteria None seen /hpf Urine Casts >20 Hyaline Casts Present (None) /lpf <Daniel Webster MD - Last Filed: 07/12/24 14:03> Lab Results 07/12/24 07/12/24 07/12/24 Range/Units 12:51 13:11 13:26 WBC 14.1 H (4.5-10.0) K/mm3 RBC 3.59 L (4.2-5.4) M/mm3 Hgb 11.3 L (12.0-15.0) g/dL Hct 34.3 L (37.0-47.0) % MCV 95.5 (80-100) fl MCH 31.5 (26-34) pg MCHC 32.9 (32-36) g/dl RDW 11.7 (11.5-14.5) % Plt Count 222 (150-375) k/mm3 MPV 12.3 H (7.4-10.4) fl Immature Gran % (Auto) 0.3 (0-0.5) % Neut % (Auto) 68.6 (45.5-73.1) % Lymph % (Auto) 24.0 (18.3-44.2) % [place] % (Auto) 6.3 (2.6-8.5) % Eos % (Auto) 0.2 (0-4.4) % Baso % (Auto) 0.6 (0.2-1.2) % Lymph # (Auto) 3.38 H (0.9-3.2) K/mm3 [place] # (Auto) 0.9 H (0.1-0.6) K/mm3 Eos # (Auto) 0.0 (0-0.3) K/mm3 Baso # (Auto) 0.1 (0.0-0.1) K/mm3 Abs Immat Gran (auto) 0.04 H (0.00-0.031) K/mm3 Absolute Neuts (auto) 9.7 H (1.3-6.7) K/mm3 Absolute Nucleated RBC 0.000 (0.0-0.012) K/mm3 Nucleated RBC % 0.0 (0.0-0.2) % Sodium 138 (137-145) mmol/L Potassium 4.8 (3.4-5.0) mmol/L Chloride 108 H (98-107) mmol/L Carbon Dioxide 20 L (22-30) mmol/L Anion Gap 10 (4-12) mmol/L BUN 34 H D (7-17) mg/dL Creatinine 1.50 H (0.7-1.0) mg/dL Estim Creat Clear Calc Not Reportable Estimated GFR 40 L (59 - ) Glucose 133 H (65-110) mg/dL POC Capillary Glucose 137 H (65-105) mg/dl Calcium 9.6 (8.4-10.2) mg/dL Total Bilirubin 0.6 (0.2-1.3) mg/dL AST 21 (14-36) U/L ALT 12 (6-35) U/L Alkaline Phosphatase 67 (38-126) U/L Total Protein 8.0 (6.3-8.2) g/dL Albumin 4.2 (3.5-5.1) g/dL Urine Color Yellow (Yellow) Urine Appearance Cloudy H (Clear) Urine pH 5.5 (5.0-9.0) Ur Specific [place] 1.017 (1.001-1.035) Urine Protein 1+ H (Negative) mg/dL Urine Glucose (UA) Negative (Negative) mg/dL Urine Ketones Trace H (Negative) mg/dL Ur Blood (Man) Negative (Negative) Urine Nitrate Negative (Negative) Urine Bilirubin Negative (Negative) Urine Urobilinogen 1.0 (<2.0) mg/dL Add Ur Microanalysis Reviewed Leukocyte Esterase Rfl Negative (Negative) JHOAN/UL Urine RBC 0-2 (0-2) /hpf Urine WBC 0-5 (0-3) /hpf Ur Squamous Epith Cells Moderate (Few) /hpf Urine Bacteria None seen /hpf Urine Casts >20 Hyaline Casts Present (None) /lpf <Meliton Milan MD - Last Filed: 07/12/24 16:11> Discharge Plan Discharge Clinical Impression: Syncope due to orthostatic hypotension <Daniel Webster MD - Last Filed: 07/12/24 14:03> Patient Disposition: Home, Self-Care <Daniel Webster MD - Last Filed: 07/12/24 14:03> Condition: Stable <Daniel Webster MD - Last Filed: 07/12/24 14:03> Instructions: Syncope (ED) <Danile Webster MD - Last Filed: 07/12/24 14:03> Additional Instructions: Continue home medication drink more fluids as tolerated, follow-up with your primary doctor <Daniel Webster MD - Last Filed: 07/12/24 14:03> Prescriptions: No Action oxycodone 5 mg tablet See Rx Instructions PO .COMPLEX PRN (Reason: pain) Qty: 14 0RF Rx Instructions: orally PRN; Take 0.5-1 tab every 8 hours aspirin 81 mg Tablet,Chewable 81 mg PO DAILY Hold Instructions: Resume on 10/03/23. May resume aspirin in 48 hours from surgery cholecalciferol (vitamin D3) [Vitamin D3] 125 mcg (5,000 unit) Tablet 5,000 unit PO DAILY tamoxifen 20 mg tablet 20 mg PO DAILY pravastatin 40 mg tablet 40 mg DAILY amlodipine 5 mg tablet 5 mg PO DAILY latanoprost 0.005 % drops 1 drp EACH EYE DAILY Qty: 7.5 1RF losartan 100 mg tablet 100 mg PO DAILY Qty: 90 2RF metformin 500 mg tablet 500 mg PO BID Qty: 180 0RF Hold Instructions: Patient Condition fluticasone propionate 50 mcg/actuation spray,suspension 1 spray intranasal Q12H PRN (Reason: Congestion) Qty: 48 1RF Rx Instructions: administer into each nostril <Daniel Webster MD - Last Filed: 07/12/24 14:03> Follow-up/Referrals: Elayne Hill MD [Primary Care Provider] - <Daniel Webster MD - Last Filed: 07/12/24 14:03> Time of Disposition: 16:11 <Daniel Webster MD - Last Filed: 07/12/24 14:03> 16:11 <Meliton Milan MD - Last Filed: 07/12/24 16:11>
[2024-07-12 13:34] LABS: Basophils Absolute Auto 0.1 K/mm3 (0.0-0.1); Basophils Percent Auto 0.6 % (0.2-1.2); Eosinophils Percent Auto 0.2 % (0-4.4); Hematocrit 34.3 % (37.0-47.0); Hemoglobin 11.3 g/dL (12.0-15.0); Immature Granulocyte Absolute 0.04 K/mm3 (0.00-0.031); Immature Granulocyte Percent A 0.3 % (0-0.5); Lymphocytes Absolute Auto 3.38 K/mm3 (0.9-3.2); Mean Corpuscular HGB Conc 32.9 g/dl (32-36); Mean Corpuscular Hemoglobin 31.5 pg (26-34); Mean Corpuscular Volume 95.5 fl (80-100); Mean Platelet Volume 12.3 fl (7.4-10.4); Monocytes Absolute Auto 0.9 K/mm3 (0.1-0.6); Monocytes Percent Auto 6.3 % (2.6-8.5); Neutrophils Absolute Auto 9.7 K/mm3 (1.3-6.7); Neutrophils Percent Auto 68.6 % (45.5-73.1); Platelet Count Result 222 k/mm3 (150-375); Red Blood Count 3.59 M/mm3 (4.2-5.4); Red Cell Distribution Width 11.7 % (11.5-14.5); White Blood Count 14.1 K/mm3 (4.5-10.0)
[2024-07-12 13:45] LABS: Alanine Aminotransferase 12 U/L (6-35); Albumin Level 4.2 g/dL (3.5-5.1); Alkaline Phosphatase 67 U/L (38-126); Anion Gap 10 mmol/L (4-12); Aspartate Amino Transferase 21 U/L (14-36); Bilirubin,Total 0.6 mg/dL (0.2-1.3); Blood Urea Nitrogen 34 mg/dL (7-17); Calcium 9.6 mg/dL (8.4-10.2); Carbon Dioxide 20 mmol/L (22-30); Chloride 108 mmol/L (98-107); Estimated Glomerular Filt Rate 40; Glucose 133 mg/dL (65-110); Potassium 4.8 mmol/L (3.4-5.0); Sodium 138 mmol/L (137-145)
[2024-07-12 13:47] VITALS: BP 129/61; BP 136/57; PULSE 70; PULSE 72
[2024-07-12 13:48] LABS: Add Urine Microscopic? YES; Appearance Urine Cloudy (Clear); Bacteria Urine None Seen /hpf; Bilirubin Urine Negative (Negative); Blood Urine Negative (Negative); Color Urine Yellow (Yellow); Glucose Urine UA Negative (Negative); Hyaline Casts Urine Present /lpf; Ketones Urine Trace mg/dL (Negative); Leukocyte Esterase Ur Negative LEU/UL (Negative); Need Manual Microscopic Reviewed; Nitrate Urine Negative (Negative); Non Pathogenic Casts >20; Protein Urine 1+ mg/dL (Negative); RBC Urine 0-2 /hpf (0-2); Specific Grav Ur 1.017 (1.001-1.035); Squamous Epithelial Cell Urine Moderate /hpf (Few); WBC Urine 0-5 /hpf (0-3); pH Urine 5.5 (5.0-9.0)
[2024-07-12 13:49] VITALS: BP 126/62; PULSE 83
[2024-07-12 14:16] VITALS: BP 146/55; PULSE 72; RESP 14; O2SAT 100
[2024-07-12] MEDS: SODIUM CHLORIDE 0.9% IV 1,000 ML 999 ML IV CONT (14:21)
[2024-07-12 14:30] VITALS: BP 140/52; PULSE 76; RESP 14; O2SAT 100
== END 2024-07-12 16:49 | disposition home or self-care (01) ==
PROVIDERS: Emergency Medicine; Emergency Provider Family Medicine; PCP Family Medicine
DX: I95.1 Orthostatic hypotension (principal); I12.9 Hypertensive chronic kidney disease with stage 1 through stage 4 chronic kidney disease, or unspecified chronic kidney disease; E11.22 Type 2 diabetes mellitus with diabetic chronic kidney disease; N18.9 Chronic kidney disease, unspecified; E53.8 Deficiency of other specified B group vitamins; D64.9 Anemia, unspecified; M17.11 Unilateral primary osteoarthritis, right knee; M85.80 Other specified disorders of bone density and structure, unspecified site; Z85.42 Personal history of malignant neoplasm of other parts of uterus; Z85.3 Personal history of malignant neoplasm of breast; Z90.710 Acquired absence of both cervix and uterus; Z98.49 Cataract extraction status, unspecified eye; Z79.82 Long term (current) use of aspirin; Z79.84 Long term (current) use of oral hypoglycemic drugs; Z79.899 Other long term (current) drug therapy; I44.7 Left bundle-branch block, unspecified
CPT/HCPCS: 36415; 70450; 71046; 80053; 81001; 82948; 85025; 93005; 96360; 99284; J7030

== ENCOUNTER 2024-09-15 09:37 | Outpatient (CLI) | payer MEDICARE, BC, SELFPAY ==
--- NOTE | ~2024-09-15 | US_ITS ---
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 Findings: There are 2 circumscribed parallel oriented hypoechoic masses of the right breast medial to the mastectomy scar, measuring up to 1.8 cm and 2.7 cm respectively. Impression: 1: Right breast masses medial to the mastectomy scar largest measuring up to 2.7 cm. Ultrasound-guide d right breast biopsies recommended. BI-RADS CATEGORY 4-SUSPICIOUS ABNORMALITY RECOMMENDATION: Ultrasound-guided right breast biopsies recommended. Reviewed, dictated and finalized at location A. SURGEON/GENERAL DERMATOLOGIST Impression: 1: Right breast masses medial to the mastectomy scar largest measuring up to 2. 7 cm. Ultrasound-guided right breast biopsies recommended. BI-RADS CATEGORY 4-SUSPICIOUS ABNORMALITY RECOMMENDATION: Ultrasound-guided right breast biopsies recommended.
--- OUTSIDE RECORDS SUMMARY | 2024-09-15 10:10 | XMS_ITS | Clinical Summary ---
Author Organization [facility] Stefani vivas [facility] Address [address] [place] [address] Care Team Providers Care Manager Summer Name Role Phone Elayne Hill MD Primary Care Provider [phone] Allergies Active Allergy Reactions Criticality Noted Date Comments Hydrocodone-Acetaminophen Rash Low 09/11/2023 Penicillins Anaphylaxis High 09/11/2023 Medications amLODIPine (NORVASC) 5 mg tablet Take 5 mg by mouth daily. Active latanoprost (XALATAN) 0.005 % solution 1 Drop daily at bedtime. Active losartan (COZAAR) 100 mg tablet Take 100 mg by mouth daily. Active metFORMIN (GLUCOPHAGE) 500 mg tablet Take 500 mg by mouth 2 times daily with meals. Active aspirin (ECOTRIN EC) 81 mg Tablet, Delayed Release (E.C.) Take 81 mg by mouth daily. Active tamoxifen (NOLVADEX) 20 mg tablet Take 1 Tablet (20 mg) by mouth daily. 90 Tablet 4 11/01/2023 Active Active Problems No known active problems Encounters Date Type Department Care Team Description 09/10/2024 External Device Data [facility] ABSTRACTION Provider, Abstract from Last 3 Months Family History Medical History Relation Name Comments Cancer Sister Relation Name Status Comments Daughter 1 Alive Daughter 2 Alive Daughter 3 Alive Father Mother Sister Son 1 Son 2 Alive Son 3 Alive Son 4 Alive Social History Tobacco Use Types Packs/Day Years Used Date Smoking Tobacco: Never Smokeless Tobacco: Never Tobacco Cessation:Counseling Given: Not Answered Alcohol Use Standard Drinks/Week Comments Yes 0 (1 standard drink = 0.6 oz pur e alcohol) ocassional Comments Unknown Sex and Gender Information Value Date Recorded Sex Assigned at Not on file Legal Sex Female 3:56 PM COFFEE WEIGHER Gender Identity Not on file Sexual Orientation Not on file Last Filed Vital Signs Vital Sign Reading Time Taken Comments Blood Pressure 180/86 11/01/2023 11:05 AM CDT Pulse 80 11/01/2023 11:03 AM CDT Temperature 36.2 ??C (97.2 ??F) 11/01/2023 11:03 AM C DT Respiratory Rate 14 11/01/2023 11:03 AM CDT Oxygen Saturation 97% 11/01/2023 11:03 AM CDT Inhaled Oxygen Concentration - - Weight 77.6 kg (171 lb) 11/01/2023 11:03 AM CDT Height 160 cm (5' 3 ) 09/11/2023 2:35 PM COFFEE WEIGHER Body Mass Index 30.29 09/11/2023 2:35 PM COFFEE WEIGHER Plan of Treatment Health Maintenance Due Date Last Done Comments DTAP/TDAP/TD VACCINES (1 - Tdap) 1964 PNEUMOCOCCAL VACCINE 65+ YEARS (1 of 1 - PCV) 01/14/19 93 ZOSTER VACCINE (1 of 2) 1993 OSTEOPOROSIS SCREENING 01/15/2008 RSV VACCINE (60+ or ) (1 - 1-dose 75+ series) 2018 INFLUENZA VACCINE (#1) 2024 Insurance [facility] [id number] Member Subscriber Plan / Payer (Ef fective 2023-Present) Name:Génesis Chan Relation to Subscriber:Self Name:Génesis Chan Payer ID:[id number] (NAIC) Type:O Address: [place] [id number] [facility] Care Teams Manager Summer Relationship Specialty Start Date End Date Elayne Hill MD [address] [place] [phone] PCP - General Family Practice 09/11/23
== END 2024-09-15 09:38 | disposition home or self-care (01) ==
PROVIDERS: PCP Family Medicine; Visit Provider Surgery
DX: D05.11 Intraductal carcinoma in situ of right breast (principal); Z90.11 Acquired absence of right breast and nipple
CPT/HCPCS: 76642

== ENCOUNTER 2024-10-09 08:06 | Outpatient (CLI) | payer MEDICARE, BC, SELFPAY ==
--- NOTE | ~2024-10-09 | MR_ITS ---
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 Technique: Coronal SSFSE ARC, WATER:coronal LAVA-FLEX, Coronal 2D FIESTA FatSat, Axial SSFSE BH ARC, Axial 3D DualEcho BH, Axial SSFSE-IR, Axial DWI b=500, Axial 2D FIESTA FatSat, pre and dynamic postco ntrast Axial LAVA ARC, postcontrast Coronal In and Opposed phase LAVA FLEX . Following intravenous ad ministration of 15 cc MultiHance gadolinium, T1-weighted fat-sat imaging was performed in the axial a nd coronal planes. Findings: Gallbladder unremarkable. The common bile duct is normal in course and caliber. No filling defects are seen within the CBD. No evidence of intrahepatic biliary ductal dilatation. The pancreati c duct is normal in size. Small hepatic cysts are present. Stable simple left renal cyst. 2.4 cm cystic mass at the pancreatic head/neck is mildly increased in size from prior exam, but otherwise unchanged. Spleen, right kidney, and adrenal glands are unremarkable. The aorta and the paraaortic regions appear normal. Impression: 2.4 cm cystic mass of the pancreatic head/neck is stable to mildly increased from prior exam. Reviewed, dictated and finalized at [facility]. F INFORMATICS OFFICER Impression: 2.4 cm cystic mass of the pancreatic head/neck is stable to mildly increased fr om prior exam.
--- OUTSIDE RECORDS SUMMARY | 2024-10-09 08:16 | XMS_ITS | Clinical Summary ---
Author Organization [facility] Stefani vivas [facility] Address [address] [address] Care Team Providers Care Meat Lugger Name Role Phone Elayne Hill MD Primary Care Provider [phone] Allergies Active Allergy Reactions Criticality Noted Date [...] Encounters Date Type Department Care Team Description 10/07/2024 External Device Data [facility] ABSTRACTION Provider, Abstract 10/02/2024 Refill [facility] Oncology and Hematology - Gokul [address] [place] [id number] Zachary Cortes MD 09/16/2024 External Device Data [facility] ABSTRACTION Provider, Abstract 09/10/2024 External Device Data [facility] ABSTRACTION Provider, [...] on file Legal Sex Female 3:56 PM CHILD DEVELOPMENT SPECIALIST Gender Identity Not on file Sexual Orientation Not on file Last Filed Vital Signs Vital Sign Reading Time Taken Comments Blood Pressure 180/86 11/01/2023 11:05 AM CDT Pulse 80 11/01/2023 11:03 AM CDT Temperature 36.2 C (97.2 F) 11/01/2023 11:03 AM CDT Respiratory Rate 14 11/01/2023 11:03 AM CDT Oxygen Saturation 97% 11/01/2023 11:03 AM CDT Inhaled Oxygen Concentration - - Weight 77.6 kg (171 lb) 11/01/2023 11:03 AM CDT Height 160 cm (5' 3 ) 09/11/2023 2:35 PM CHILD DEVELOPMENT SPECIALIST Body Mass Index 30.29 09/11/2023 2:35 PM CHILD DEVELOPMENT SPECIALIST Plan of Treatment Health Maintenance Due Date Last Done Comments DTAP/TDAP/TD VACCINES (1 - Tdap) 1962 PNEUMOCOCCAL VACCINE 65+ YEARS (1 of 1 - PCV) 01/14/19 93 ZOSTER VACCINE (1 of 2) 1993 OSTEOPOROSIS SCREENING 01/15/2008 RSV VACCINE (60+ or ) (1 - 1-dose 75+ series) 2018 INFLUENZA VACCINE (#1) 2024 Preventative Visit- Commercial 08/19/[address] [employer]ER[employer] Care Teams Meat Lugger Relationship Specialty Start Date End Date Elayne Hill MD [address] [place] [phone] PCP - General Family Practice 09/11/23
--- OUTSIDE RECORDS SUMMARY | 2024-10-09 08:16 | XMS_ITS | Encounter Summary ---
Author Organization [facility] Address [address] [place] [address] Care Team Providers Care Admiralty Lawyer Name Role Phone Elayne Hill MD Primary Care Provider [phone] Encounter Details Date Type Department Care Team (Late st Contact Info) Description 10/07/2024 External Device Data [facility] ABSTRACTION Provider, Abstract NO ADDRESS ON FILE Social History Tobacco Use Types Packs/Day Years Used Date Smoking Tobacco: Never Smokeless Tobacco: Never Alcohol Use Standard Drinks/Week Comments Yes 0 (1 standard drink = 0.6 oz pur e alcohol) ocassional Comments Unknown Sex and Gender Information Value Date Recorded Sex Assigned at Not on file Legal Sex Female 3:56 PM TALENT DIRECTOR Gender Identity Not on file Sexual Orientation Not on file documented as of this encounter Plan of Treatment Not on file documented as of this encounter Visit Diagnoses Not on filedocumented in this encounter Care Teams Admiralty Lawyer Relationship Specialty Start Date End Date Elayne Hill MD [address] [place] [phone] PCP - General Family Practice 09/11/23 documented as of this encounter
--- OUTSIDE RECORDS SUMMARY | 2024-10-09 08:16 | XMS_ITS | Encounter Summary ---
Author Organization [facility] Address [address] [place] [address] Care Team Providers Care Chronometer Repairer Name Role Phone Elayne Hill MD Primary Care Provider [phone] Reason for Visit * Reason Comments Med Refill Encounter Details Date Type Department Care Team (Late st Contact Info) Description 10/02/2024 Refill [facility] Oncology and Hematology - Gokul [address] [facility] [address] [place] [address] Zachary Cortes MD [address] [place] [address] Social History Tobacco Use Types Packs/Day Years Used Date Smoking Tobacco: Never Smokeless Tobacco: Never Alcohol Use Standard Drinks/Week Comments Yes 0 (1 standard drink = 0.6 oz pur e alcohol) ocassional Comments Unknown Sex and Gender Information Value Date Recorded Sex Assigned at Not on file Legal Sex Female 3:56 PM CAR DEALER Gender Identity Not on file Sexual Orientation Not on file documented as of this encounter Plan of Treatment Not on file documented as of this encounter Visit Diagnoses Not on filedocumented in this encounter Care Teams Chronometer Repairer Relationship Specialty Start Date End Date Elayne Hill MD [address] [place] [phone] PCP - General Family Practice 09/11/23 documented as of this encounter
== END 2024-10-09 08:07 | disposition home or self-care (01) ==
PROVIDERS: PCP Family Medicine; Visit Provider Nurse Practitioner
DX: D49.0 Neoplasm of unspecified behavior of digestive system (principal)
CPT/HCPCS: 74183; 76376; A9577

== ENCOUNTER 2024-10-19 07:51 | Outpatient (CLI) | payer MEDICARE, BC, SELFPAY | END 2024-10-19 07:52 | disposition home or self-care (01) | PROVIDERS: PCP Family Medicine; Visit Provider Surgery | DX: D05.11 Intraductal carcinoma in situ of right breast (principal); Z90.11 Acquired absence of right breast and nipple | CPT/HCPCS: 19083; 19084; 88305; 88342; A4648 ==

== ENCOUNTER 2025-02-11 13:39 | Outpatient (CLI) | payer MEDICARE, BC, SELFPAY ==
[2025-02-11 14:01] LABS: Basophils Absolute Auto 0.1 K/mm3 (0.0-0.1); Basophils Percent Auto 0.6 % (0.2-1.2); Eosinophils Percent Auto 0.4 % (0-4.4); Hematocrit 34.6 % (37.0-47.0); Hemoglobin 11.2 g/dL (12.0-15.0); Immature Granulocyte Absolute 0.02 K/mm3 (0.00-0.031); Immature Granulocyte Percent A 0.2 % (0-0.5); Lymphocytes Absolute Auto 3.48 K/mm3 (0.9-3.2); Mean Corpuscular HGB Conc 32.4 g/dl (32-36); Mean Corpuscular Hemoglobin 31.1 pg (26-34); Mean Corpuscular Volume 96.1 fl (80-100); Mean Platelet Volume 11.6 fl (7.4-10.4); Monocytes Absolute Auto 0.9 K/mm3 (0.1-0.6); Monocytes Percent Auto 7.7 % (2.6-8.5); Neutrophils Absolute Auto 6.8 K/mm3 (1.3-6.7); Neutrophils Percent Auto 60.1 % (45.5-73.1); Platelet Count Result 249 k/mm3 (150-375); Red Cell Distribution Width 12.1 % (11.5-14.5); White Blood Count 11.2 K/mm3 (4.5-10.0)
[2025-02-11 14:05] LABS: Blood Urea Nitrogen 19 mg/dL (8-26); Carbon Dioxide 23 mmol/L (22-30); Chloride 107 mmol/L (98-109); Estimated Glomerular Filt Rate 43; Glucose 106 mg/dL (70-105); Ionized Calcium (POC) 1.15 mmol/L (1.11-1.31); Potassium 4.2 mmol/L (3.5-4.9); Sodium 142 mmol/L (138-146)
[2025-02-11 17:11] LABS: Alanine Aminotransferase 14 U/L (6-35); Alkaline Phosphatase 59 U/L (38-126); Anion Gap 12 mmol/L (4-12); Aspartate Amino Transferase 48 U/L (14-36); Bilirubin,Total 0.4 mg/dL (0.2-1.3); Blood Urea Nitrogen 20 mg/dL (7-17); Calcium 9.6 mg/dL (8.4-10.2); Carbon Dioxide 20 mmol/L (22-30); Chloride 108 mmol/L (98-107); Estimated Glomerular Filt Rate 47; Glucose 102 mg/dL (65-110); Potassium 4.3 mmol/L (3.4-5.0); Sodium 140 mmol/L (137-145); Total Protein 7.9 g/dL (6.3-8.2)
== END 2025-02-11 13:40 | disposition home or self-care (01) ==
LOC: ANHLAB 13:40
PROVIDERS: PCP Family Medicine; Visit Provider Internal Medicine Hematology & Oncology
DX: D05.11 Intraductal carcinoma in situ of right breast (principal)
CPT/HCPCS: 36415; 80047; 80053; 85025

== ENCOUNTER 2025-04-06 10:51 | Outpatient (CLI) | payer MEDICARE, BC, SELFPAY ==
--- NOTE | ~2025-04-06 | MM_ITS ---
Corrected Report Order # associated This report was recreated on 04/06/2025. Original report was signed by Fareed Painting M.D. on 04/06/2025 11:16 CDT. EXAMINATION: MM screening den LT w ramya HISTORY: Screening mammogram, family history of breast cancer in her sister. TECHNIQUE: Craniocaudal and mediolateral oblique 3-D tomosynthesis images were obtained and synthetic 2-D images were generated. CAD analysis was submitted and interpreted. COMPARISON: 02/19/2024, 01/02/2023 BREAST PARENCHYMAL COMPOSITION:Not Dense. There are scattered areas of fibroglandular density. FINDINGS: No suspicious mass, calcification, or architectural distortion are identified in either breast to suggest malignancy. There has been no suspicious interval change. IMPRESSION: No mammographic evidence of malignancy. Recommend routine screening mammography in one year. BI-RADS Category 1: Negative Reviewed, dictated and finalized at location .
--- OUTSIDE RECORDS SUMMARY | 2025-04-06 11:29 | XMS_ITS | Clinical Summary ---
Author Organization [facility] Address [address] [place] [address] Care Team Providers Care Grain Drier Operator Name Role Phone Elayne Hill MD Primary Care Provider [phone] Source Comments [facility] Affiliates and Associated Physician Practices is amultiple site organization consisting of ambulatory clinics and hospital sitesin [place], [place], [place] and [place]. This disclosure is being madepursuant to the Care Everywhere program and may not contain all information available regarding this patient. Last updated 18.[facility] Allergies Active Allergy Reactions Criticality Noted Date Comments Hydrocodone-Acetaminophen Rash Medium 09/11/2023 Penicillins Anaphylaxis High 09/11/2023 Medications * Be aware that medications may not be up to date on this document. Alwaysverify current medications with the patient. amLODIPine (Norvasc) 5 MG tablet Take 1 (one) tablet by mouth once daily Active metFORMIN (Glucophage) 500 MG tablet Take 1 (one) tablet by mouth 2 times daily with morning and evening meal Active pravastatin (Pravachol) 40 MG tablet Take 1 (one) tablet by mouth at bedtime Active tamoxifen (Nolvadex) 20 MG tablet Take 1 (one) tablet by mouth once daily Active aspirin EC (Ecotrin) 81 MG tablet Take 1 (one) tablet by mouth once daily Active fish oil/omega-3 fatty acids (Promega;Cardi- [place] 3) 1000 MG capsule Take 1 (one) capsule by mouth daily with food Active Other 1 capsule Blackseed oil capsule Active Social History Tobacco Use Types Packs/Day Years Used Date Smoking Tobacco: Never Smokeless Tobacco: Never Tobacco Cessation:Counseling Given: Not Answered Alcohol Use Standard Drinks/Week Comments Not Currently 0 (1 standard drink = 0.6 oz pur e alcohol) Comments No Sex and Gender Information Value Date Recorded Sex Assigned at Not on file 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 Gender Identity Not on file Sexual Orientation Not on file Last Filed Vital Signs Vital Sign Reading Time Taken Comments Blood Pressure 157/74 11/20/2024 2:01 PM CDT Pulse 73 11/20/2024 2:01 PM CDT Temperature 36.6 C (97.8 F) 11/20/2024 1:40 PM CDT Respiratory Rate 10 11/20/2024 2:01 PM CDT Oxygen Saturation 100% 11/20/2024 2:01 PM CDT Inhaled Oxygen Concentration - - Weight 73.9 kg (163 lb) 11/20/2024 11:39 AM CDT Height 160 cm (5' 3) 11/20/2024 11:39 AM CDT Body Mass Index 28.87 11/20/2024 11:39 AM CDT Plan of Treatment Health Maintenance Due Date Last Done Comments BONE DENSITY TESTING 1943 DTAP/TDAP/TD VACCINES (1 - Tdap) 1962 PNEUMOCOCCAL VACCINE 50+ (1 of 1 - PCV) 1993 ZOSTER VACCINE (1 of 2) 1993 Respiratory Syncytial Virus (RSV) Vaccine Pt: or over 60 yrs (1 - 1-dose 75+ series) 2018 COVID-19 VACCINE ( - 2023-2 5 season) 2024 DEPRESSION SCREENING 08/19/2024 MEDICARE AWV CALENDAR YEAR 2024 INFLUENZA VACCINE (#1) 2025 HEPATITIS B VACCINE Aged Out No longe r eligible based on patient's age to complete this topic HIB VACCINE Aged Out No longer eligi ble based on patient's age to complete this topic HPV VACCINE Aged Out No longer eligi ble based on patient's age to complete this topic MENINGOCOCCAL (Group B) VACC INE SHARED DECISION-MAKING Aged Out No longer eligibl e based on patient's age to complete this topic MENINGOCOCCAL GROUPS A/C/Y/W VACCINE Aged Out No longer eligible b ased on patient's age to complete this topic Insurance [facility] MANAGED MEDICARE ADV * Guarantor: JASMIN CHAN Account Type Relation to Patient Date of Phone Billing Address Personal/Family Spouse Care Teams Grain Drier Operator Relationship Specialty Start Date End Date Elayne Hill MD [address] [facility] [place] [address] PCP - General Family Medicine 11/20/24
--- OUTSIDE RECORDS SUMMARY | 2025-04-06 11:29 | XMS_ITS | Clinical Summary ---
Author Organization [facility] Address [address] [place] [address] Care Team Providers Care Refuge Worker Name Role Phone Elayne Hill MD Primary Care Provider [phone] Allergies Active Allergy Reactions Criticality Noted Date [...] mg) by mouth daily. 90 Tablet 4 02/11/2025 Active Active Problems No known active problems Encounters Date Type Department Care Team Description 03/24/2025 External Device Data ST[facility] ABSTRACTION Provider, Abstract 03/03/2025 External Device Data [facility] ABSTRACTION Provider, Abstract 03/03/2025 External Device Data [facility] ABSTRACTION Provider, Abstract 02/16/2025 External Device Data [facility] ABSTRACTION Provider, Abstract 02/12/2025 Orders Only [facility] Oncology and Hematology [address] [place] [address] Zachary Cortes MD 02/11/2025 2:00 PM CDT Office Visit [facility] Oncology and Hematology - [address] [place] [address] Zachary Cortes MD Ductal carcinoma in situ (DCIS) of right breast (Primary Dx); Visit for screening mammogram from Last 3 Months Family History Medical [...] on file 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 Gender Identity Not on file Sexual Orientation Not on file Last Filed Vital Signs Vital Sign Reading Time Taken Comments Blood Pressure 147/82 02/11/2025 2:08 PM CDT Pulse 84 02/11/2025 2:05 PM CDT Temperature 37.4 C (99.4 F) 02/11/2025 2:05 PM CDT Respiratory Rate 15 02/11/2025 2:05 PM CDT Oxygen Saturation 96% 02/11/2025 2:05 PM CDT Inhaled Oxygen Concentration - - Weight 73.1 kg (161 lb 3.2 oz) 02/11/2025 2:05 P M CDT Height 160 cm (5' 3) 09/11/2023 2:35 PM HVAC SERVICE MANAGER Body Mass Index 28.56 09/11/2023 2:35 PM HVAC SERVICE MANAGER Plan of Treatment Upcoming Encounters Date Type Department Care Team (Late st Contact Info) Description 07/23/2025 11:15 AM HVAC SERVICE MANAGER Office Visit [facility] Oncology and Hematology - [address] [facility] [address] [place] [address] Zachary Cortes MD [address] [place] [address] Health Maintenance Due Date Last Done Comments DTAP/TDAP/TD VACCINES (1 - Tdap) 1962 PNEUMOCOCCAL VACCINE 50+ YEARS (1 of 1 - PCV) 01/14/19 93 ZOSTER VACCINE (1 of 2) 1993 OSTEOPOROSIS SCREENING 01/15/2008 RSV VACCINE (60+ or ) (1 - 1-dose 75+ series) 2018 INFLUENZA VACCINE (#1) 2025 Procedures Procedure Name Priority Date/Time Associated Diagnosis Comments COMPREHENSIVE METABOLIC PANEL Routine 02/11/2025 8:47 AM CDT BASIC METABOLIC PANEL Routine 02/11/2025 8:39 AM CDT CBC WITH DIFFERENTIAL Routine 02/11/2025 8:00 AM CDT from Last 3 Months Results * COMPREHENSIVE METABOLIC PANEL (02/11/2025 8:47 AM CDT) Blood us Zachary oCrtes MD CHEMISTRY ORDERABLES Final Resu lt * BASIC METABOLIC PANEL (02/11/2025 8:39 AM CDT) Blood us Zachary Cortes MD CHEMISTRY ORDERABLES Final Resu lt * CBC WITH DIFFERENTIAL (02/11/2025 8:00 AM CDT) Blood us Zachary Cortes MD HEMATOLOGY ORDERABLES Final Res ult from Last 3 Months Insurance Member Subscriber Plan / Payer (Ef fective 2023-Present) Name:Génesis Chan Relation to Subscriber:Self Name:Génesis Chan Payer ID:[id number] (NAIC) Type:O Address: [address] Care Teams Refuge Worker Relationship Specialty Start Date End Date Elayne Hill MD [address] [place] [address] PCP - General Family Practice 09/11/23
== END 2025-04-06 10:52 | disposition home or self-care (01) ==
LOC: ANHFOHIMG 10:54
PROVIDERS: PCP Family Medicine; Visit Provider Surgery
DX: Z12.31 Encounter for screening mammogram for malignant neoplasm of breast (principal); Z80.3 Family history of malignant neoplasm of breast
CPT/HCPCS: 77063; 77067

== ENCOUNTER 2025-07-23 11:12 | Outpatient (CLI) | payer MEDICARE, BC, SELFPAY ==
--- OUTSIDE RECORDS SUMMARY | 2025-07-23 11:24 | XMS_ITS | Clinical Summary ---
Author Organization [facility] Address [address] [place] [address] Care Team Providers Care Rotary Envelope Machine Operator Name Role Phone Elayne Hill MD Primary Care Provider [phone] Source Comments [facility] [place] [facility] Affiliates and Associated Physician Practices is amultiple site organization consisting of ambulatory clinics and hospital sitesin [place], [place], [place] and [place]. This disclosure is being madepursuant to the Care Everywhere program and may not contain all information available regarding this patient. Last updated 18.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 Gender Identity Not on file Sexual Orientation [...] Last Done Comments BONE DENSITY TESTING 1945 COVID-19 VACCINE (#1) 01/15/1950 DTAP/TDAP/TD VACCINES (1 - Tdap) 1962 PNEUMOCOCCAL VACCINE 50+ (1 of 1 - PCV) 1993 ZOSTER VACCINE (1 of 2) 1993 Respiratory Syncytial Virus (RSV) Vaccine Pt: or over 60 yrs (1 - 1-dose 75+ series) 2018 DEPRESSION SCREENING 08/19/2024 MEDICARE AWV CALENDAR YEAR [...] age to complete this topic Insurance [facility] MANAGED MEDICARE ADV * Guarantor: JASMIN CHAN Account Type Relation to Patient Date of Phone Billing Address Personal/Family Spouse Care Teams Rotary Envelope Machine Operator Relationship Specialty Start Date End Date Elayne Hill MD [address] [facility] [place] [address] PCP - General Family Medicine 11/20/24
--- OUTSIDE RECORDS SUMMARY | 2025-07-23 11:24 | XMS_ITS | Clinical Summary ---
[facility] Address [address] [place] [address] Care Team Providers Care Safety Equipment Testing Specialist Name Role Phone Elayne Hill MD Primary Care Provider [phone] Allergies Active Allergy Reactions Criticality Noted Date [...] Encounters Date Type Department Care Team Description 06/16/2025 External Device Data STL ABSTRACTION Provider, Abstract 06/08/2025 External Device Data [facility] ABSTRACTION Provider, Abstract [...] on file Legal Sex Female 3:56 PM COLLAR POINTER Gender Identity Not on file Sexual Orientation [...] 160 cm (5' 3) 09/11/2023 2:35 PM COLLAR POINTER Body Mass Index 28.56 09/11/2023 2:35 PM COLLAR POINTER Plan of Treatment Health Maintenance Due Date Last Done Comments DTAP/TDAP/TD VACCINES (1 - Tdap) 1962 PNEUMOCOCCAL VACCINE 50+ YEARS (1 of 1 - PCV) 01/14/19 93 ZOSTER VACCINE (1 of 2) 1993 OSTEOPOROSIS SCREENING 01/15/2008 RSV VACCINE (60+ or ) (1 - 1-dose 75+ series) 2018 Preventative Visit- Commercial 08/19/2024 INFLUENZA VACCINE (#1) 2025 Insurance [facility] Care Teams Safety Equipment Testing Specialist Relationship Specialty Start Date End Date Elayne Hill MD [address] [place] [address] PCP - General Family Practice 09/11/23
[2025-07-23 11:37] LABS: Hematocrit 32.0 % (37.0-47.0); Hemoglobin 10.3 g/dL (12.0-15.0); Immature Granulocyte Percent A 0.2 % (0-0.5); Lymphocytes Absolute Auto 3.15 K/mm3 (0.9-3.2); Mean Corpuscular HGB Conc 32.2 g/dl (32-36); Mean Corpuscular Hemoglobin 31.5 pg (26-34); Mean Corpuscular Volume 97.9 fl (80-100); Nucleated Red Blood Cells Absolute Auto 0.000 K/mm3 (0.0-0.012); Nucleated Red Blood Cells Perc 0.0 % (0.0-0.2); Platelet Count Result 238 k/mm3 (150-375); Red Blood Count 3.27 M/mm3 (4.2-5.4); White Blood Count 9.4 K/mm3 (4.5-10.0)
[2025-07-23 11:41] LABS: Blood Urea Nitrogen 29 mg/dL (8-26); Carbon Dioxide 21 mmol/L (22-30); Chloride 110 mmol/L (98-109); Estimated Glomerular Filt Rate 36; Glucose 139 mg/dL (70-105); Ionized Calcium (POC) 1.21 mmol/L (1.11-1.31); Potassium 4.6 mmol/L (3.5-4.9); Sodium 141 mmol/L (138-146)
[2025-07-23 13:17] LABS: Alanine Aminotransferase 15 U/L (6-35); Albumin Level 4.2 g/dL (3.5-5.1); Alkaline Phosphatase 67 U/L (38-126); Anion Gap 5 mmol/L (4-12); Aspartate Amino Transferase 35 U/L (14-36); Bilirubin,Total 0.4 mg/dL (0.2-1.3); Blood Urea Nitrogen 29 mg/dL (7-17); Calcium 9.1 mg/dL (8.4-10.2); Carbon Dioxide 23 mmol/L (22-30); Chloride 111 mmol/L (98-107); Estimated Glomerular Filt Rate 38; Glucose 137 mg/dL (65-110); Potassium 4.6 mmol/L (3.4-5.0); Sodium 139 mmol/L (137-145); Total Protein 8.2 g/dL (6.3-8.2)
== END 2025-07-23 11:13 | disposition home or self-care (01) ==
LOC: ANHLAB 11:13
PROVIDERS: PCP Student in an Organized Health Care Education/Training Program; Visit Provider Internal Medicine Hematology & Oncology
DX: D05.11 Intraductal carcinoma in situ of right breast (principal)
CPT/HCPCS: 36415; 80047; 80053; 85025